=== PATIENT | male | born 1940 | race Caucasian/White ===

== ENCOUNTER → 2018-04-14 | Day surgery (SDC) | payer MEDICARE ==
[2018-04-11 16:19] VITALS: BMI 28.7
[~2018-04-14] MED LIST: LACTATED RINGERS 1,000 ML IV SCH; LIDOCAINE 1% 20 ML VIAL (10MG/ML) FOR IV START INTRADERMA ONE; LIDOCAINE 1% INJ 10MG/ML (20 ML MDV) ONE; PROPOFOL 10 MG/ML 20 ML VIAL IV ONE
[2018-04-14 08:02] VITALS: TEMP 97.3
--- NOTE | 2018-04-14 08:51 | P.GSHP ---
History of Present Illness H&P Date: 04/14/18 Chief Complaint: Screening colonoscopy, hemorrhoids This is a 70-year-old male referred from Dr. navarro. Patient presents today for screening colonoscopy. He has a history of hemorrhoids. Past Medical History Past Medical History: Coronary Artery Disease (CAD), Cancer, Hyperlipidemia, Hypertension, Osteoarthritis (OA), Prostate Disorder Additional Past Medical History / Comment(s): Hemmorroids. History of Any Multi-Drug Resistant Organisms: MRSA Date of last positivie culture/infection: 2007 MDRO Source:: R groin Past Surgical History: Appendectomy, Coronary Bypass/CABG, Prostate Surgery, Tonsillectomy Additional Past Surgical History / Comment(s): Fem Pop bypass R groin. L shoulder surgery. Past Anesthesia/Blood Transfusion Reactions: No Reported Reaction Smoking Status: Former smoker - Past Family History Mother Family Medical History: Cancer Additional Family Medical History / Comment(s): Liver Medications and Allergies Home Medications Medication Instructions Recorded Confirmed Type Atenolol [Tenormin] 50 mg PO DAILY 04/11/18 04/14/18 History Cholecalciferol [Vitamin D3] 400 unit PO DAILY@1200 04/11/18 04/14/18 History Folic Acid 1 mg PO DAILY 04/11/18 04/14/18 History Isosorbide Mononitrate ER [Imdur] 30 mg PO DAILY 04/11/18 04/14/18 History Methotrexate [Xatmep Oral Soln] 12.5 mg PO Q7D 04/11/18 04/11/18 History Allergies Allergy/AdvReac Type Severity Reaction Status Date / Time No Known Allergies Allergy Verified 04/11/18 15:58 Surgical - Exam Vital Signs Temp Pulse Resp BP Pulse Ox 97.3 F L 133 H 16 169/76 96 04/14/18 07:55 04/14/18 07:55 04/14/18 07:55 04/14/18 07:55 04/14/18 07:55 - General well developed, no distress - Eyes PERRL - ENT normal pinna - Neck no masses - Respiratory normal expansion - Cardiovascular Rhythm: regular - Abdomen Abdomen: soft, non tender Assessment and Plan Assessment: We'll perform screening colonoscopy.
[2018-04-14 09:10] VITALS: RESP 18
--- NOTE | 2018-04-14 09:10 | P.OP ---
Date of Procedure: 04/14/18 Preoperative Diagnosis: Screening colonoscopy Postoperative Diagnosis: Diverticulosis Procedure(s) Performed: Colonoscopy Anesthesia: MAC Surgeon: John Tomas Pathology: none sent Condition: stable Disposition: PACU Description of Procedure: PROCEDURE: The patient was placed on the endoscopy table in the lateral position. Digital rectal examination was performed which revealed no abnormalities. The prostate was symmetrical without nodules. Flexible colonoscope was then placed in the patient's anus and passed throughout the entire colon. The ileocecal valve was visualized. The cecum, ascending, transverse, descending colon was normal. In the sigmoid colon there was evidence of diverticulitis. The scope was then brought back the rectum and this appeared normal. Scope was withdrawn for patient.
[2018-04-14 09:35] VITALS: PULSE 58
[2018-04-14 09:53] VITALS: BP 142/65
--- NOTE | 2018-04-18 05:16 | CDI ---
Date: 04/18/2018 CDS/Tutor Coordinator Name: Parker Lopez Phone: If any questions, call Mary Gamez College Administrator at [phone] Patient Name: Kailash Cee Admit Date: 04/14/2018 Discharge Date: ATTENTION: The [facility] Coding Staff appreciate your assistance in clarifying documentation. Please respond to the clarification below the line at the bottom and electronically sign. The [facility] Coding staff will review the response and follow-up if needed. Please note: Queries are made part of the Legal Health Record. If you have any questions, please contact the College Administrator. Dear Dr. Genoveva Lopez, Colonoscopy OP report procedure description states "There was evidence of diverticulitis", but no documentation of diverticulitis in post operative diagnosis, documented only diverticulosis. Please clarify whether the patient is having diverticulitis or diverticulosis. The patient had evidence of sigmoid diverticulosis MTDD
== END | disposition home or self-care (01) ==
LOC: ORWHC2ENDO 07:31
PROVIDERS: ATTEND Surgery
DX: Z12.11 Encounter for screening for malignant neoplasm of colon (principal); K57.30 Diverticulosis of large intestine without perforation or abscess without bleeding; I25.10 Atherosclerotic heart disease of native coronary artery without angina pectoris; E78.5 Hyperlipidemia, unspecified; I10 Essential (primary) hypertension; M06.9 Rheumatoid arthritis, unspecified; Z79.899 Other long term (current) drug therapy; Z87.19 Personal history of other diseases of the digestive system; Z86.14 Personal history of Methicillin resistant Staphylococcus aureus infection; Z85.9 Personal history of malignant neoplasm, unspecified; Z87.891 Personal history of nicotine dependence; Z95.1 Presence of aortocoronary bypass graft; Z90.49 Acquired absence of other specified parts of digestive tract; Z80.0 Family history of malignant neoplasm of digestive organs
CPT/HCPCS: J2001; J2704; G0121

== ENCOUNTER → 2018-06-01 | Outpatient (CLI) | payer MEDICARE ==
[2018-06-01 13:35] LABS: Basophils % (A) 0 %; Eosinophils # (A) 0.3 k/uL (0-0.7); Eosinophils % (A) 4 %; HCT 40.9 % (39.0-53.0); HGB 13.6 gm/dL (13.0-17.5); Lymphocytes # (A) 1.5 k/uL (1.0-4.8); Lymphocytes % (A) 24 %; MCH 32.3 pg (25.0-35.0); MCHC 33.3 g/dL (31.0-37.0); MCV 96.9 fL (80.0-100.0); Mean Platelet Volume 7.5; Monocytes # (A) 0.3 k/uL (0-1.0); Monocytes % (A) 4 %; Neutrophils # (A) 4.1 k/uL (1.3-7.7); Neutrophils % (A) 65 %; Platelet Count 151 k/uL (150-450); RBC 4.22 m/uL (4.30-5.90); RDW 15.5 % (11.5-15.5); WBC 6.3 k/uL (3.8-10.6)
[2018-06-01 13:52] LABS: Calcium 9.1 mg/dL (8.4-10.2); Potassium 4.8 mmol/L (3.5-5.1)
== END | disposition home or self-care (01) ==
LOC: LABPAT 13:12
PROVIDERS: ATTEND Urology
DX: Z01.812 Encounter for preprocedural laboratory examination (principal); A63.0 Anogenital (venereal) warts; Z79.899 Other long term (current) drug therapy
CPT/HCPCS: 36415; 80048; 85025

== ENCOUNTER 2018-06-08 05:48 | Day surgery (SDC) | payer MEDICARE ==
[2018-06-01 10:41] VITALS: BMI 29.4
--- NOTE | 2018-06-05 21:46 | P.GSHP ---
History of Present Illness H&P Date: 06/05/18 Chief Complaint: Left groin condyloma The patient is a 78-year-old male who underwent a radical prostatectomy in the for prostate cancer. 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 He now presents with an 8 cm area of apparent condyloma on the left groin/inner thigh and perianal regions. He comes for CO2 laser ablation. - Constitutional Constitutional: Denies chills, Denies fever - Cardiovascular Cardiovascular: Reports edema - Gastrointestinal Gastrointestinal: Reports abdominal pain, Reports nausea, Reports vomiting Past Medical History Past Medical History: Coronary Artery Disease (CAD), Cancer, Hyperlipidemia, Hypertension, Osteoarthritis (OA), Prostate Disorder Additional Past Medical History / Comment(s): Hemmorroids,prostate CA-radiation seeds implant History of Any Multi-Drug Resistant Organisms: MRSA Date of last positivie culture/infection: 2007 MDRO Source:: R groin surgical site-had wound vac Past Surgical History: Appendectomy, Coronary Bypass/CABG, Prostate Surgery, Tonsillectomy Additional Past Surgical History / Comment(s): Fem Pop bypass R groin. L shoulder surgery,prostatectomy,CABG x2-triple bypass each time-last CABG 2009 Past Anesthesia/Blood Transfusion Reactions: No Reported Reaction Additional Past Anesthesia/Blood Transfusion Reaction / Comment(s): no hx problems with prior blood transfusion Smoking Status: Former smoker - Past Family History Mother Family Medical History: Cancer Additional Family Medical History / Comment(s): Liver Medications and Allergies Home Medications Medication Instructions Recorded Confirmed Type Atenolol [Tenormin] 50 mg PO QAM 04/11/18 06/01/18 History Cholecalciferol [Vitamin D3] 400 unit PO DAILY@1200 04/11/18 06/01/18 History Folic Acid 1 mg PO DAILY 04/11/18 06/01/18 History Isosorbide Mononitrate ER [Imdur] 30 mg PO QAM 04/11/18 06/01/18 History Methotrexate [Xatmep Oral Soln] 12.5 mg PO MO 04/11/18 06/01/18 History Allergies Allergy/AdvReac Type Severity Reaction Status Date / Time No Known Allergies Allergy Verified 06/01/18 10:31 Surgical - Exam - General well developed, well nourished, no distress - Respiratory normal respiratory effort - Genitourinary other (An 8 cm area of apparent condyloma is noted in the left groin and inner thigh, extending to the perianal region.) - Psychiatric oriented to time, oriented to person, oriented to place, speech is normal, memory intact Assessment and Plan (1) 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 The procedure was reviewed in detail with the patient. He understands risks to include anesthesia, bleeding, infection, postoperative pain, and recurrent condyloma.
[~2018-06-08 05:48] MED LIST changes: +HYDROmorphone 1 MG/ML 1 ML SYRINGE IVP PRN; -LIDOCAINE 1% 20 ML VIAL (10MG/ML) FOR IV START INTRADERMA ONE; -LIDOCAINE 1% INJ 10MG/ML (20 ML MDV) ONE; +ONDANSETRON 4 MG/2 ML VIAL IVP ONE; -PROPOFOL 10 MG/ML 20 ML VIAL IV ONE; +Pre Op ABX Message 1 EACH MISC MISCELLANE ONE
[2018-06-08] MEDS ORDERED: LIDOCAINE 1% 20 ML VIAL (10MG/ML) FOR IV START INTRADERMA ONE (06:48)
[2018-06-08] MEDS ORDERED: LIDOCAINE 1% INJ 10MG/ML (20 ML MDV) SQ ONE (07:43)
[2018-06-08] MEDS ORDERED: MIDAZOLAM 2 MG/2 ML VIAL ONE (07:43)
[2018-06-08] MEDS ORDERED: ePHEDrine SULFATE/0.9% NACL/PF 50 MG/5 ML SYRINGE IV ONE (07:43)
[2018-06-08] MEDS ORDERED: SILVER sulfADIAZINE Cream 400 GM 1 APPLIC APPLIC TOPICAL ONE (07:43)
[2018-06-08] MEDS ORDERED: fentaNYL (PF) 50 MCG/ML 2 ML AMP ONE (07:43)
[2018-06-08] MEDS ORDERED: ceFAZolin 1,000 MG/50 ML BAG (PMX) IVPB ONE (07:43)
[2018-06-08] MEDS ORDERED: SUCCINYLCHOLINE CHLORIDE 100 MG/5 ML SYR IV ONE (07:43)
[2018-06-08] MEDS ORDERED: LIDOCAINE 1% INJ 10MG/ML (20 ML MDV) ONE (07:43)
[2018-06-08] MEDS ORDERED: ROPIVACAINE 5 MG/ML 30 ML VIAL MISCELLANE ONE (07:43)
[2018-06-08] MEDS ORDERED: PROPOFOL 10 MG/ML 20 ML VIAL IV ONE (07:43)
--- NOTE | 2018-06-08 08:33 | P.OP ---
Date of Procedure: 06/08/18 Preoperative Diagnosis: Perianal condyloma Postoperative Diagnosis: same Procedure(s) Performed: Excision and fulguration of perianal condyloma Anesthesia: VI Surgeon: Jose F Gomez Estimated Blood Loss (ml): 1 Pathology: other (Condyloma) Condition: stable Disposition: same day Indications for Procedure: Patient presented to my office with perianal condyloma and a large amount of condyloma on left perineum and groin. Discussion was had with patient about excision and fulguration of perianal condyloma and Dr. Chicas (Urology) would be performing the perineum and groin portion of the procedure. Risks benefits and alternatives were discussed. Patient stated he understood and agreed. Operative Findings: Perianal condyloma Description of Procedure: Patient was brought to OR. Placed in lithotomy. Timeout preformed correct patient procedure and site noted. Prepped and drapped in usual sterile fashion. Rectal exam preformed no internal lesions noted. Several small condylomas were excised and fulgurated with bovie electrocautery. These were sent to pathology. Hemostasis was noted. Inspection did not show any more perianal lesions. Please see Dr. Chicas' dictation regarding the urologic portion of the procedure.
[2018-06-08] MEDS ORDERED: LACTATED RINGERS 1,000 ML IV ONE (08:40)
[2018-06-08 08:57] VITALS: TEMP 96.8
[2018-06-08 09:41] VITALS: RESP 18
[2018-06-08] MEDS ORDERED: HYDROcodone/APAP 5-325MG 1 EACH TAB PO ONE (09:54)
[2018-06-08 10:19] VITALS: BP 177/76; PULSE 66
--- NOTE | 2018-06-08 18:09 | P.OP ---
Date of Procedure: 06/08/18 Preoperative Diagnosis: Anogenital Condyloma Postoperative Diagnosis: Same Procedure(s) Performed: Excision of scrotal condyloma, CO2 laser ablation of penoscrotal and groin condyloma Anesthesia: VI Surgeon: Dallas Chicas Estimated Blood Loss (ml): 5 IV fluids (ml): 700 Pathology: other (Left scrotal condyloma) Condition: stable Disposition: PACU Indications for Procedure: The patient is a 78-year-old male who underwent a radical prostatectomy in the for prostate cancer. 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 He now presents with an 8 cm area of apparent condyloma on the left groin/inner thigh and perianal regions. He comes for CO2 laser ablation. Operative Findings: Multiple penoscrotal and groin condyloma, most prominent within the left groin crease. Description of Procedure: The patient was taken to the operating room and placed in the dorsolithotomy position, with his legs supported in Rivera stirrups. The external genitalia was prepped and draped sterilely. Dr. Gomez treated the perianal lesions. I then entered the operating room. Several condyloma were noted on the penis and scrotum. One of the scrotal condyloma was excised with Metzenbaum scissors and sent to pathology. Multiple flat condyloma were present in the left groin crease, the largest measuring approximately 2 cm in diameter. An additional 1- 2 condyloma were noted within the right groin crease. All visible condyloma were treated using CO2 laser ablation. Some of the left groin condyloma were confluent with one another. Hemostasis was excellent. Upon completion of the procedure, Silvadene cream was applied to the lesions and was taken to the recovery room in stable condition.
== END 2018-06-08 10:42 | disposition home or self-care (01) ==
LOC: OR 05:48
PROVIDERS: ATTEND Student in an Organized Health Care Education/Training Program
DX: A63.0 Anogenital (venereal) warts (principal); I10 Essential (primary) hypertension; E78.00 Pure hypercholesterolemia, unspecified; E78.5 Hyperlipidemia, unspecified; I25.10 Atherosclerotic heart disease of native coronary artery without angina pectoris; M19.90 Unspecified osteoarthritis, unspecified site; I25.2 Old myocardial infarction; Z87.891 Personal history of nicotine dependence; Z95.1 Presence of aortocoronary bypass graft; Z85.46 Personal history of malignant neoplasm of prostate; Z92.3 Personal history of irradiation; Z86.14 Personal history of Methicillin resistant Staphylococcus aureus infection; Z79.899 Other long term (current) drug therapy; L40.9 Psoriasis, unspecified
CPT/HCPCS: 88305; 45171; 11421; J2250; J2405; J2001; J3010; J0690; J2795; J0330; J2704

== ENCOUNTER → 2018-10-13 | Outpatient (CLI) | payer MEDICARE ==
--- NOTE | 2018-10-13 12:04 | XR ---
EXAMINATION TYPE: XR chest 2V DATE OF EXAM: 10/13/2018 COMPARISON: 09/18/2010 TECHNIQUE: PA and lateral views submitted. HISTORY: MRI clearance FINDINGS: There is a mass measuring 2 cm in the left upper lobe suspicious for malignancy. CT chest recommended . Postsurgical changes. Subsegmental changes left lung base. Hypertrophic and degenerative change of the spine. Biapical pleural thickening. Underlying interstitial lung disease suspected. Identified hy pertrophic and degenerative change of the spine. IMPRESSION: 1. There is a mass within the left upper lobe measuring 2 cm suggestive of malignancy. CT scan chest recommended. Report called to the referring physician. 2. There is no definite epicardial lead visualized. 3. Left lower lobe infiltrate and findings suggestive of chronic interstitial lung disease.. A Yellow level critical message alert has been initiated for Sariah Carter DO via the [employer] Critical Results System on 10/13/2018 11:55 AM. This message alert has been sent to Sariah Carter DO vi a the preferences provided by the clinician for the receipt of Radiology Critical Findings. Message I [id number].
== END ==
LOC: RADXRMAIN 11:31
PROVIDERS: ATTEND Orthopaedic Surgery Orthopaedic Surgery of the Spine
DX: Z01.818 Encounter for other preprocedural examination (principal); R91.8 Other nonspecific abnormal finding of lung field
CPT/HCPCS: 71046

== ENCOUNTER → 2018-11-10 | Outpatient (CLI) | payer MEDICARE ==
--- NOTE | 2018-11-11 14:14 | CT ---
CT CHEST FOR PULMONARY EMBOLISM. EXAMINATION TYPE: CT angio chest DATE OF EXAM: 11/10/2018 INDICATION: R/O PE CT DLP: 856.1 mGycm, Automated exposure control for dose reduction was used. CONTRAST: Patient injected with 60 mL of Isovue 370. COMPARISON: Chest x-ray 10/13/2018. TECHNIQUE: CT of the chest is performed on a spiral scan at 2 mm thick sections. Study is performed with intravenous contrast timed for evaluation for pulmonary embolism. This will limit additional po rtions of the evaluation. 3-D MIP images reconstructed by the technologist are reviewed on the compu ter in the coronal and sagittal planes. FINDINGS: No persistent filling defects are evident to suggest an acute pulmonary embolism. No mediastinal or hilar adenopathy enlarged by CT criteria is evident. There are scattered small lee tty lymph nodes present. The ascending aorta diameter at the level of the main pulmonary artery is 3. 4 cm. The main pulmonary artery diameter at the bifurcation is 2.2 cm. Mild coronary artery calcific ation is present. There is mild increased lung markings in the periphery of the right upper lobe. More diffuse and grea ter increased lung markings at the lung bases. Borderline bronchiectasis may be present. Some early p ulmonary fibrosis is suspected. There is a 2.2 cm mass within the mid left lung. This was present on the chest x-ray of 10/13/2018. Limited CT section through the upper abdomen are unremarkable. IMPRESSIONS: 1. Left midlung mass present previously. Neoplasm is not excluded. 2. No acute pulmonary embolism. 3. Changes suggestive for early pulmonary fibrosis.
== END | disposition home or self-care (01) ==
LOC: RADCTMAIN 15:51
PROVIDERS: ATTEND Orthopaedic Surgery Orthopaedic Surgery of the Spine
DX: R91.8 Other nonspecific abnormal finding of lung field (principal); I26.99 Other pulmonary embolism without acute cor pulmonale; I11.9 Hypertensive heart disease without heart failure; E78.5 Hyperlipidemia, unspecified; M51.17 Intervertebral disc disorders with radiculopathy, lumbosacral region; M47.26 Other spondylosis with radiculopathy, lumbar region; M48.062 Spinal stenosis, lumbar region with neurogenic claudication; M43.16 Spondylolisthesis, lumbar region; M25.552 Pain in left hip; E66.3 Overweight; Z68.30 Body mass index [BMI] 30.0-30.9, adult; Z85.51 Personal history of malignant neoplasm of bladder; Z85.46 Personal history of malignant neoplasm of prostate; Z90.79 Acquired absence of other genital organ(s); Z98.890 Other specified postprocedural states
CPT/HCPCS: 82565; 84520; 71275; 36415; Q9967

== ENCOUNTER 2018-11-17 07:36 | Day surgery (SDC) | payer MEDICARE ==
[2018-11-16 11:30] VITALS: BMI 29.7
[~2018-11-17 07:36] MED LIST changes: +DEXAMETHASONE SOD PHOSPHATE 10 MG/ML 1 ML VIAL IV ONE; +HEPARIN SODIUM,PORCINE 5,000 UNIT/ML 1 ML VIAL SQ ONE; -HYDROmorphone 1 MG/ML 1 ML SYRINGE IVP PRN; +LIDOCAINE 1% 20 ML VIAL (10MG/ML) FOR IV START INTRADERMA PRN; +MIDAZOLAM 2 MG/2 ML VIAL IV PRN; -ONDANSETRON 4 MG/2 ML VIAL IVP ONE; +fentaNYL (PF) 50 MCG/ML 2 ML AMP IV PRN
--- NOTE | 2018-11-17 08:59 | P.GSHP ---
History of Present Illness H&P Date: 11/17/18 Chief Complaint: Right hand keratosis, right shoulder melanoma This a 78-year-old male who is referred from Dr. Cornell. Patient presents today for excision of right hand keratosis and wide local excision of a right shoulder melanoma. Patient had a punch biopsy performed of the melanoma. The biopsy showed a level IV melanoma. The patient was counseled on possible sentinel node biopsy. Patient does not wish undergo sentinel biopsy at this time. Past Medical History Past Medical History: Coronary Artery Disease (CAD), Cancer, Hyperlipidemia, Hypertension, Myocardial Infarction (MS), Osteoarthritis (OA), Prostate Disorder , Skin Disorder Additional Past Medical History / Comment(s): Hemorrhoids,prostate CA-radiation seeds implant , varicose veins, psoriasis, bladder cancer, melanoma, slipped disks, Last Myocardial Infarction Date:: 1991 History of Any Multi-Drug Resistant Organisms: MRSA Date of last positivie culture/infection: 2007 MDRO Source:: R groin surgical site-had wound vac Past Surgical History: Appendectomy, Coronary Bypass/CABG, Heart Catheterization , Hernia Repair, Orthopedic Surgery, Prostate Surgery, Tonsillectomy Additional Past Surgical History / Comment(s): Fem Pop bypass Rt groin. L shoulder surgery,prostatectomy,CABG x2-triple bypass each time-last CABG 2009, sneha cataracts, laser eye surgery Past Anesthesia/Blood Transfusion Reactions: No Reported Reaction Additional Past Anesthesia/Blood Transfusion Reaction / Comment(s): no hx problems with prior blood transfusion Smoking Status: Former smoker - Past Family History Mother Family Medical History: Cancer Additional Family Medical History / Comment(s): Liver Sister(s) Family Medical History: Cancer Additional Family Medical History / Comment(s): brain Medications and Allergies Home Medications Medication Instructions Recorded Confirmed Type Atenolol [Tenormin] 50 mg PO DAILY 04/11/18 11/16/18 History Cholecalciferol [Vitamin D3] 400 unit PO DIRECTED 04/11/18 11/16/18 History Folic Acid 1 mg PO DAILY 04/11/18 11/16/18 History Isosorbide Mononitrate ER [Imdur] 30 mg PO 1200 04/11/18 11/16/18 History Ibuprofen [Motrin Ib] 200 mg PO DIRECTED PRN 11/16/18 11/16/18 History Methotrexate Sodium [Methotrexate] 12.5 mg PO MO 11/16/18 11/16/18 History Nitroglycerin Sl Tabs [Nitrostat] 0.4 mg SUBLINGUAL Q5M PRN 11/16/18 11/16/18 History Simvastatin [Zocor] 40 mg PO HS 11/16/18 11/16/18 History hydrOXYzine HCL [Atarax] 25 mg PO DIRECTED PRN 11/16/18 11/16/18 History Allergies Allergy/AdvReac Type Severity Reaction Status Date / Time No Known Allergies Allergy Verified 11/17/18 07:49 Surgical - Exam Vital Signs Temp Pulse Resp BP Pulse Ox 96.9 F L 62 16 179/77 98 11/17/18 07:54 11/17/18 07:54 11/17/18 07:54 11/17/18 07:54 11/17/18 07:54 - General well developed, no distress - Eyes PERRL - ENT normal pinna - Neck no masses, no lymphadectomy - Respiratory normal expansion - Cardiovascular Rhythm: regular - Abdomen Abdomen: soft, non tender - Integumentary Patient has a healing right hand keratosis located in the lateral aspect of his hand. It measures approximately 2 cm diameter. Patient has a 1.5 cm melanoma located on the anterior shoulder. There is a recent biopsy scar. There is no cervical or axillary lymphadenopathy. Assessment and Plan Assessment: Right shoulder melanoma. Patient will undergo wide local excision today. Right hand keratosis. Patient will undergo excision today.
[2018-11-17] MEDS ORDERED: fentaNYL (PF) 50 MCG/ML 2 ML AMP ONE (09:06)
[2018-11-17] MEDS ORDERED: MIDAZOLAM 2 MG/2 ML VIAL ONE (09:06)
[2018-11-17] MEDS ORDERED: KETAMINE 10 MG/ML 20 ML VIAL ONE (09:06)
[2018-11-17] MEDS ORDERED: PROPOFOL 10 MG/ML 20 ML VIAL IV ONE (09:06)
[2018-11-17] MEDS ORDERED: BUPIVACAIN-EPI 0.25%-1:200,000 30 ML VIAL SQ ONE ×2 (09:30)
[2018-11-17] MEDS ORDERED: BUPIVACAINE (PF) 0.25% 30 ML VIAL SQ ONE ×2 (09:30)
[2018-11-17] MEDS ORDERED: SODIUM CHLORIDE 0.9% 50 ML with ceFAZolin 2,000 MG IV ONE ×2 (09:50)
[2018-11-17 10:16] VITALS: TEMP 97.2
[2018-11-17 10:29] VITALS: RESP 16
[2018-11-17] MEDS ORDERED: LACTATED RINGERS 1,000 ML IV ONE (10:49)
[2018-11-17 10:58] VITALS: PULSE 60
[2018-11-17 11:34] VITALS: BP 156/80
--- NOTE | 2018-11-24 15:43 | P.OP ---
Date of Procedure: 11/24/18 Preoperative Diagnosis: Right shoulder melanoma Right hand keratosis Postoperative Diagnosis: Right shoulder melanoma Right hand keratosis Procedure(s) Performed: Wide local excision of right shoulder melanoma Excision of right hand keratosis Anesthesia: MAC Surgeon: John Tomas Estimated Blood Loss (ml): 10 Pathology: other (Right shoulder melanoma, right hand keratosis) Condition: stable Disposition: PACU Description of Procedure: Patient's placed on the operative table in the supine position. He received IV sedation. His right hand and right shoulder prepped and draped usual fashion. Patient had a melanoma which was previously biopsied. The patient had a wide local excision for melanoma. An elliptical skin incision was made around the melanoma. Approximate 2.5 cm margin was achieved in all directions. The skin was incised with 15 blade and then using cautery the subcutaneous tissues were divided. The specimen was sent to pathology. The lesion had been oriented for the pathologist. The skin was closed interrupted 3-0 Monocryl suture. Next the right hand keratosis was excised. Elliptical skin incision was made over the keratosis. The keratosis located on the lateral the hand. Using 15 blade skin was incised with cautery was performed to divide subcutaneous tissue. The skin was closed with 3-0 nylon. Patient had cervical spine. He thought procedure well and sent to recovery in stable condition.
== END 2018-11-17 12:30 | disposition home or self-care (01) ==
LOC: OR 07:36
PROVIDERS: ATTEND Surgery
DX: C43.61 Malignant melanoma of right upper limb, including shoulder (principal); D04.61 Carcinoma in situ of skin of right upper limb, including shoulder; E78.5 Hyperlipidemia, unspecified; I10 Essential (primary) hypertension; I25.10 Atherosclerotic heart disease of native coronary artery without angina pectoris; I25.2 Old myocardial infarction; L40.9 Psoriasis, unspecified; L57.0 Actinic keratosis; M19.90 Unspecified osteoarthritis, unspecified site; Z85.46 Personal history of malignant neoplasm of prostate; Z85.51 Personal history of malignant neoplasm of bladder; Z87.891 Personal history of nicotine dependence; Z95.1 Presence of aortocoronary bypass graft
CPT/HCPCS: 88305; 11423; 11606; J2250; J1644; J1100; J3010; J0690; J2704

== ENCOUNTER → 2019-01-19 | Outpatient (CLI) | payer MEDICARE ==
[2019-01-19 07:37] LABS: Basophils % (A) 0 %; Eosinophils # (A) 0.4 k/uL (0-0.7); Eosinophils % (A) 5 %; HCT 43.1 % (39.0-53.0); HGB 13.8 gm/dL (13.0-17.5); Lymphocytes # (A) 1.1 k/uL (1.0-4.8); Lymphocytes % (A) 15 %; MCH 31.7 pg (25.0-35.0); MCHC 31.9 g/dL (31.0-37.0); MCV 99.3 fL (80.0-100.0); Macrocytosis Slight; Mean Platelet Volume 7.5; Monocytes # (A) 0.4 k/uL (0-1.0); Monocytes % (A) 6 %; Neutrophils # (A) 5.4 k/uL (1.3-7.7); Neutrophils % (A) 73 %; Partial Thromboplastin Time 25.4 sec (22.0-30.0); Platelet Count 154 k/uL (150-450); Prothrombin Time 10.8 sec (9.0-12.0); RBC 4.34 m/uL (4.30-5.90); RDW 14.4 % (11.5-15.5); WBC 7.4 k/uL (3.8-10.6)
[2019-01-19 07:44] LABS: Magnesium 2.2 mg/dL (1.6-2.3); Potassium 4.3 mmol/L (3.5-5.1)
== END | disposition home or self-care (01) ==
LOC: LABPAT 06:53
PROVIDERS: ATTEND Thoracic Surgery (Cardiothoracic Vascular Surgery)
DX: Z01.812 Encounter for preprocedural laboratory examination (principal)
CPT/HCPCS: 80051; 82565; 82947; 83735; 84520; 85025; 85610; 85730

== ENCOUNTER → 2019-01-31 | Day surgery (SDC) | payer MEDICARE ==
[2019-01-25 15:31] VITALS: BMI 30.2
[~2019-01-31] MED LIST changes: +ALPRAZolam 0.25 MG TAB PO PRN; +ALPRAZolam 0.5 MG TAB PO PRN; +ASPIRIN 325 MG TAB PO STA; +ATORVASTATIN 80 MG TAB PO STA; -DEXAMETHASONE SOD PHOSPHATE 10 MG/ML 1 ML VIAL IV ONE; +HEPARIN SODIUM 1,000 UN/ML (10ML VL) IV ONE; +HEPARIN SODIUM 1,000 UN/ML (10ML VL) ONE; -HEPARIN SODIUM,PORCINE 5,000 UNIT/ML 1 ML VIAL SQ ONE; +IOPAMIDOL-370 125ML BTL INJ ONE; +IOPAMIDOL-370 50ML BTL INJ ONE; -LACTATED RINGERS 1,000 ML IV SCH; -LIDOCAINE 1% 20 ML VIAL (10MG/ML) FOR IV START INTRADERMA PRN; +LIDOCAINE 1% INJ 10MG/ML (20 ML MDV) ONE; +LIDOCAINE 1% INJ 10MG/ML (20 ML MDV) SQ ONE; -MIDAZOLAM 2 MG/2 ML VIAL IV PRN; +MIDAZOLAM 2 MG/2 ML VIAL IVP ONE; +NITROGLYCERIN SL TABS 0.4 MG TAB SUBLINGUAL PRN; -Pre Op ABX Message 1 EACH MISC MISCELLANE ONE; +RX INFO: IV CONTRAST WAS GIVEN 1 EACH MISC MISCELLANE PRN; +SODIUM CHLORIDE 0.9% 1,000 ML IV ONE; +SODIUM CHLORIDE 0.9% 1,000 ML IV SCH; +SODIUM CHLORIDE 0.9% 1,000 ML in EMPTY BAG 1 BAG IV ONE; +VERAPAMIL 2.5 MG/ML 2 ML AMP ONE; +VERAPAMIL SYRINGE (5 MG/10 ML) INTRAARTER ONE; +diphenhydrAMINE 50 MG/ML 1 ML VIAL IVP ONE; +diphenhydrAMINE 50 MG/ML 1 ML VIAL ONE; -fentaNYL (PF) 50 MCG/ML 2 ML AMP IV PRN; +fentaNYL (PF) 50 MCG/ML 2 ML AMP IVP ONE; +fentaNYL (PF) 50 MCG/ML 2 ML AMP ONE
[2019-01-31 11:29] VITALS: RESP 16
[2019-01-31 16:33] VITALS: TEMP 98
[2019-01-31 17:33] VITALS: BP 145/68; PULSE 56
--- NOTE | 2019-02-01 18:37 | P.CARDCATH ---
Date of Procedure: 02/01/19 Preoperative Diagnosis: Ischemic heart disease, positive stress test, preop clearance Postoperative Diagnosis: Significant catawba disease, patent graft to the LAD, OM branch and also right coronary artery Description of Procedure: HISTORY: This is a 78-year-old gentleman with history of previous bypass surgery 2 who is waiting to have lobectomy. Patient had a stress test which showed ischemia in the inferolateral wall apical and anterolateral segments. Patient is advised to have a cardiac catheterization for definite diagnosis. Patient and family were explained the risks and benefits of the procedure. CONSENT:I have discussed the risks, benefits and alternative therapies for the above-mentioned procedure and for both sedation/analgesia as well as necessary blood product administration, if indicated, as they pertain to this patient. The patient has indicated understanding and acceptance of the risks and procedures discussed. PROCEDURE: Patient was brought to the lab in a fasting state. Patient was given some IV sedation. The left wrist is infiltrated with lidocaine and left radial artery was entered using Seldinger technique. A 6-Greek catheter was left in place and selective coronary arteriography and selective injection of 4 vein grafts and catawba circulation was performed was performed. Patient tolerated the procedure well. TR band was applied for hemostasis Conscious Sedation: Versed 1mg Fentanyl 50 g Duration 61minutes HEMODYNAMICS: The aortic pressure is about 130/70. Left ventricle end-diastolic pressures of 15-20. There was no gradient across the aortic valve SELECTIVE CORONARY ARTERIOGRAPHY: LEFT MAIN: This is shot with the distal disease with about 60% luminal narrowing. THE LEFT ANTERIOR DESCENDING CORONARY ARTERY: This is diffuse and this is a vessel, Proximally and near total occluded after the origin of the first diagonal branch. There is some competent to flow noted into the distal LAD. The first diagonal branch is small in caliber with a significant disease in the midportion. THE LEFT CIRCUMFLEX AND IS CORONARY ARTERY: This is a small-caliber vessel giving rise to small caliber second OM branch. There is mild disease in the ostium of the second OM branch. There is moderate to severe disease in midportion. The first OM branch is totally occluded THE RIGHT CORONARY ARTERY: This is totally occluded in the proximal to midportion. THE VEIN GRAFT TO THE LAD: This is patent throat its length and also at distal anastomosis. The LAD appears to be small to moderate in size, mild diffuse plaque but without any critical lesions. The vein graft to the OM branch: This is a good size and vessel and patent at the proximal and distal anastomosis. There is a OM branch is small to moderate caliber and free of any significant occlusive disease THE VEIN GRAFT TO THE RIGHT CORONARY ARTERY: This is patent at the proximal and distal anastomosis with some ectatic changes proximally. The PDA and PLV branches, beyond the anastomosis,appeared to be free of occlusive disease. LEFT VENTRICULOGRAPHY: Not performed FINAL IMPRESSION: Patent graft to the LAD, OM branch and right coronary artery. Total occlusion of the vein graft to the PLV branch of the RCA. Diffusedly disease involving the catawba vessels including the diagonal and OM branches and also significant lesion involving the left main. The ischemia documented on the stress test is most probably related to the catawba vessel disease. The catawba vessels appear to be small and probably not suitable for interventions. We'll also get an opinion from works manager. Most probably patient could undergo his surgery with the above average risk PLAN: Continued medical therapy PROGNOSIS: Fair from Cardec standpoint
== END | disposition home or self-care (01) ==
LOC: CATHCVL 10:52
PROVIDERS: ATTEND Internal Medicine Cardiovascular Disease
DX: I25.810 Atherosclerosis of coronary artery bypass graft(s) without angina pectoris (principal); I25.82 Chronic total occlusion of coronary artery; E78.5 Hyperlipidemia, unspecified; I10 Essential (primary) hypertension; I73.9 Peripheral vascular disease, unspecified; Z79.899 Other long term (current) drug therapy; F17.200 Nicotine dependence, unspecified, uncomplicated
CPT/HCPCS: 99152; 99153 ×2; 93459; J2250; J1200; J2001; J3010; J1644; Q9967 ×2

== ENCOUNTER → 2019-02-24 | Outpatient (CLI) | payer MEDICARE ==
[2019-02-24 09:24] LABS: Basophils % (A) 1 %; Eosinophils # (A) 0.3 k/uL (0-0.7); Eosinophils % (A) 4 %; HGB 13.9 gm/dL (13.0-17.5); Lymphocytes # (A) 0.9 k/uL (1.0-4.8); Lymphocytes % (A) 11 %; MCH 32.7 pg (25.0-35.0); MCHC 33.1 g/dL (31.0-37.0); MCV 99.1 fL (80.0-100.0); Macrocytosis Slight; Mean Platelet Volume 7.9; Monocytes # (A) 0.4 k/uL (0-1.0); Monocytes % (A) 6 %; Neutrophils % (A) 78 %; Platelet Count 149 k/uL (150-450); RBC 4.24 m/uL (4.30-5.90); RDW 15.8 % (11.5-15.5); WBC 7.8 k/uL (3.8-10.6)
[2019-02-24 09:44] LABS: Magnesium 2.2 mg/dL (1.6-2.3); Potassium 4.3 mmol/L (3.5-5.1)
[2019-02-24 10:02] LABS: Partial Thromboplastin Time 24.5 sec (22.0-30.0); Prothrombin Time 10.6 sec (9.0-12.0)
== END | disposition home or self-care (01) ==
LOC: LABPAT 08:20
PROVIDERS: ATTEND Thoracic Surgery (Cardiothoracic Vascular Surgery)
DX: Z01.812 Encounter for preprocedural laboratory examination (principal)
CPT/HCPCS: 36415; 80051; 82565; 82947; 83735; 84520; 85025; 85610; 85730

== ENCOUNTER 2019-02-27 12:23 | Inpatient (IN) | payer MEDICARE ==
[2019-02-20 14:59] VITALS: BMI 31.1
[2019-03-02] MEDS ORDERED: ceFAZolin IN SWFI 2 GM/20 ML SYRINGE IVP ONE (05:00)
[2019-03-02] MEDS ORDERED: HYDROmorphone 0.5 MG/0.5 ML SYRINGE IVP PRN (05:12)
[2019-03-02] MEDS ORDERED: ONDANSETRON 4 MG/2 ML VIAL IVP ONE (05:12)
[2019-03-02] MEDS ORDERED: MIDAZOLAM (PF) 2 MG/2 ML VIAL IV PRN (05:12)
[2019-03-02] MEDS ORDERED: DEXAMETHASONE SOD PHOSPHATE 10 MG/ML 1 ML VIAL IV ONE (05:12)
[2019-03-02] MEDS: LACTATED RINGERS 1,000 ML IV SCH ×2 (10:31→10:32)
[2019-03-02] MEDS: LIDOCAINE 1% 20 ML VIAL (10MG/ML) FOR IV START INTRADERMA ONE ×2 (10:32→10:33)
[2019-03-02] MEDS ORDERED: fentaNYL (PF) 50 MCG/ML 2 ML AMP IV ONE (11:30)
[2019-03-02] MEDS ORDERED: GLYCOPYRROLATE 0.2 MG/ML 2 ML VIAL ONE (13:08)
[2019-03-02] MEDS ORDERED: LIDOCAINE 1% INJ 10MG/ML (20 ML MDV) ONE (13:08)
[2019-03-02] MEDS ORDERED: ROCURONIUM BROMIDE 10 MG/ML 10 ML VIAL IV ONE (13:08)
[2019-03-02] MEDS ORDERED: HYDROmorphone (PF) 1 MG/ML ONE (13:08)
[2019-03-02] MEDS ORDERED: NEOSTIGMINE 1 MG/ML 10 ML VIAL ONE (13:08)
[2019-03-02] MEDS ORDERED: fentaNYL (PF) 50 MCG/ML 2 ML AMP ONE (13:08)
[2019-03-02] MEDS ORDERED: ePHEDrine SULFATE/0.9% NACL/PF 50 MG/5 ML SYRINGE IV ONE (13:08)
[2019-03-02] MEDS ORDERED: PROPOFOL 10 MG/ML 20 ML VIAL IV ONE (13:08)
[2019-03-02] MEDS ORDERED: SUCCINYLCHOLINE CHLORIDE 100 MG/5 ML SYR IV ONE (13:08)
[2019-03-02] MEDS ORDERED: BUPIVACAINE (PF) 0.5% 30 ML VIAL SQ ONE ×2 (14:19)
[2019-03-02] MEDS ORDERED: LACTATED RINGERS 1,000 ML IV ONE ×3 (14:54→17:09)
--- NOTE | 2019-03-02 17:49 | P.OP ---
Date of Procedure: 03/02/19 Preoperative Diagnosis: Left upper lobe lung mass Postoperative Diagnosis: Same Procedure(s) Performed: Left thoracoscopy, robotic-assisted left upper lobectomy with mediastinal lymph node dissection Anesthesia: VI Surgeon: Andrea Mejia [employer] Laborer #1: aZc Newman Estimated Blood Loss (ml): 500 IV fluids (ml): 1,800 Urine output (ml): 450 Pathology: other (Left upper lobectomy with frozen section of bronchial margin negative for carcinoma, lymph nodes stations L5, L 11, level VII) Condition: stable Disposition: PACU Indications for Procedure: 79-year-old male with previous CABG 2 presents for elective left upper lobectomy for lung mass consistent with carcinoma Operative Findings: Majority of the pleural space was free, the apex and anterior and mediastinal surfaces were adherent. The adhesions were particularly dense in the patient left internal mammary artery to the LAD. Was a large mass in the left upper lobe adjacent to the fissure. Minimal adenopathy was present. Description of Procedure: The patient was brought to the operating room, placed supine on the operating table, anesthetized and intubated with a double-lumen endotracheal tube. Tube was positioned with fiberoptic bronchoscopy and secured. Patient was turned in the right lateral decubitus position and appropriately positioned for robotic lobectomy. The left chest was sterilely prepped and draped. Initial incision was made in the eighth interspace in the anterior axillary line and a video thoracoscope was placed into the pleural space. After confirming presence of the pleural space CO2 insufflation was begun. 212 mm ports were placed 10 cm anterior and posterior to this in the same interspace. A second 8 mm port was placed in the fourth interspace posteriorly. And a 15 mm working port was placed between the 2 most anterior portion of the level of the diaphragm. Robot was docked and dissection was begun. Adhesions in the apex were taken down and the anterior adhesions were taken down. Dissection of the mediastinal adhesions was more difficult. Particularly in the area the patent RIVAS to the LAD the adhesions were very dense and there was considerable bleeding in trying to take these down. Eventually we opted to go to the hilum and began dissection in the hilum. The superior pulmonary vein was encircled and ligated and divided with a robotic stapler. Dissection was carried onto the pulmonary artery and the lingular branch was ligated and divided with a robotic stapler. There was one further branch more proximally in the fissure leading to the posterior segment of the left upper lobe which was ligated and divided with a robotic stapler. We now able to encircle the left upper lobe bronchus, resecting the lymph nodes en bloc with the specimen. The bronchus was ligated and divided with a single firing of of thick robotic stapler. Some lymph nodes were present in the fissure and worse resected and sent as L 11 lymph nodes. Dissection was carried up onto the proximal portion of the pulmonary vein pulmonary artery and the remaining 2 branches of the pulmonary artery leading to the left upper lobe were ligated and divided with a single firing of a robotic vascular stapler. The inferior pulmonary ligament was mobilized and the level VII lymph nodes were dissected out and resected and sent for permanent section. The remaining adhesions in the mediastinum adjacent to the patent RIVAS to the LAD were now carefully taken down sparing the patent RIVAS to the LAD. Dissection was carried out proximally in the region of the pulmonary artery of the L5 and L6 lymph nodes were resected and sent as L6 lymph nodes. He was minimal lymphadenopathy present. The lobectomy specimen was now placed in an Endo Catch bag and pulled out of the field. Hilum was examined there was a little bit of bleeding from the base of one of the pulmonary artery branches and this was sutured with a 6-0 Prolene suture. Robot was now undocked and the robotic ports were removed. Scope was left in place. The chest was irrigated and the lung inflated and no air leaks were noted. Some FloSeal was placed on the hilum because of the previous bleeding from the pulmonary artery branches although no brisk bleeding was present at this time. 28-[place]ian chest tube was placed through anterior incision and positioned posterior apically. Good lung expansion was noted and this camera was removed. Were closed with layers of Vicryl suture and skin glue and dry sterile dressings were applied. The patient was turned supine and extubated and Frozen section of the bronchial margin was negative for tumor.
[2019-03-02] MEDS ORDERED: ACETAMINOPHEN IV (For NPO) 1,000 MG/100 ML VIAL IVPB ONE (17:57)
[2019-03-02] MEDS ORDERED: DEXTROSE 5%-0.45% NACL 1,000 ML IV SCH (18:03)
[2019-03-02] MEDS ORDERED: IPRATROPIUM-ALBUTEROL 3 ML NEB IH PRN (18:03)
[2019-03-02] MEDS ORDERED: ONDANSETRON 4 MG/2 ML VIAL IVP PRN (18:03)
--- NOTE | 2019-03-02 18:15 | XR ---
EXAMINATION TYPE: XR chest 1V DATE OF EXAM: 03/02/2019 COMPARISON: 10/13/2018 HISTORY: Postop left upper lobectomy TECHNIQUE: Single frontal view of the chest is obtained. FINDINGS: There is a left chest tube. I see no definite pneumothorax. Heart and mediastinum shifted slightly to the left side. There is soft tissue air on the left lateral chest wall. There is some inf iltrate left lower lobe. Right lung is fairly clear. There is no heart failure. IMPRESSION: Postsurgical changes. Slight volume loss consistent with lobectomy. Mild infiltrate left lower lobe increased compared to preoperative exam.
[2019-03-02] MEDS: IPRATROPIUM-ALBUTEROL 3 ML NEB IH SCH (20:59)
[2019-03-02] MEDS: traMADol 50 MG TAB PO SCH ×2 (21:16→21:18)
[2019-03-02] MEDS: ACETAMINOPHEN IV (For NPO) 1,000 MG in EMPTY BAG 1 BAG IVPB SCH (21:18)
[2019-03-02] MEDS: ATORVASTATIN 20 MG TAB PO SCH (21:19)
[2019-03-03] MEDS: HEPARIN SODIUM,PORCINE 5,000 UNIT/ML 1 ML VIAL SQ SCH ×4 (00:01→22:29)
[2019-03-03] MEDS: ceFAZolin IN SWFI 2 GM/20 ML SYRINGE IVP SCH ×2 (01:58→09:13)
[2019-03-03] MEDS: ACETAMINOPHEN IV (For NPO) 1,000 MG in EMPTY BAG 1 BAG IVPB SCH ×2 (02:05→09:05)
--- NOTE | 2019-03-03 06:35 | XR ---
EXAMINATION TYPE: XR chest 1V DATE OF EXAM: 03/03/2019 HISTORY: Postoperative left upper lobectomy. REFERENCE: Previous study dated 03/02/2019. FINDINGS: There has been a midline sternotomy. A left pleural drain placed. The heart is mildly enlarged. There is left basilar airspace disease. There is a small left effusion. There is some volume loss on the left. There has been no significant interval change in the appearan ce of the lungs. IMPRESSION: CONTINUING POSTOPERATIVE CHANGE.
[2019-03-03 07:03] LABS: Basophils % (A) 0 %; Eosinophils % (A) 0 %; HCT 36.1 % (39.0-53.0); HGB 11.7 gm/dL (13.0-17.5); Lymphocytes # (A) 0.8 k/uL (1.0-4.8); Lymphocytes % (A) 6 %; MCH 32.2 pg (25.0-35.0); MCHC 32.5 g/dL (31.0-37.0); MCV 98.9 fL (80.0-100.0); Macrocytosis Slight; Mean Platelet Volume 7.7; Monocytes # (A) 0.6 k/uL (0-1.0); Monocytes % (A) 5 %; Neutrophils # (A) 11.9 k/uL (1.3-7.7); Neutrophils % (A) 88 %; Platelet Count 164 k/uL (150-450); RBC 3.65 m/uL (4.30-5.90); RDW 15.5 % (11.5-15.5); WBC 13.5 k/uL (3.8-10.6)
[2019-03-03] MEDS: IPRATROPIUM-ALBUTEROL 3 ML NEB IH SCH ×4 (07:06→20:20)
[2019-03-03 07:24] LABS: Calcium 8.3 mg/dL (8.4-10.2); Potassium 4.4 mmol/L (3.5-5.1)
[2019-03-03] MEDS ORDERED: KETOROLAC 30 MG/ML 1 ML VIAL IVP ONE (09:00)
[2019-03-03] MEDS: FOLIC ACID 1 MG TAB PO SCH (09:13)
[2019-03-03] MEDS: traMADol 50 MG TAB PO SCH ×3 (09:13→22:28)
[2019-03-03] MEDS: CHOLECALCIFEROL 400 UNIT TAB PO SCH (09:13)
[2019-03-03] MEDS: ATENOLOL 50 MG TAB PO SCH (09:13)
--- NOTE | 2019-03-03 10:34 | P.PN ---
Subjective Progress Note Date: 03/03/19 Principal diagnosis: Left upper lobe lung mass, history of coronary artery disease with history of previous coronary artery bypass grafting surgery in 1991 and in 2010, hypertension, dyslipidemia, remote history of tobacco dependence in remission, history of bilateral carotid stenosis, and peripheral vascular disease. POD #1 left thoracoscopic robotic-assisted left upper lobectomy with mediastinal lymph node dissection. Patient is currently lying in bed on the 3 S. cardiac stepdown unit. He is complaining of pain to his left shoulder and denies any complaints of shortness of breath at this time. He is hemodynamically stable and remains afebrile. Tolerating his incentive spirometry and achieving 5507-4644 mL. Oxygen saturation are 97% on 3 L nasal cannula. His left pleural chest tube remains in place to low continuous wall suction -20 cm H2O. Intermittent air leak is present. Draining thin serosanguineous drainage with 530 mL output since surgery. Tolerating oral intake. Objective - Vital Signs Vital signs: Vital Signs Temp 98.7 F 03/03/19 05:08 Pulse 84 03/03/19 07:15 Resp 20 03/03/19 05:08 BP 116/55 03/03/19 05:08 Pulse Ox 97 03/03/19 05:08 Intake & Output 03/02/19 03/03/19 03/03/19 18:59 06:59 18:59 Intake Total 2500 240 Output Total 1020 225 Balance 1480 -225 240 Weight 99.5 kg Intake: IV 2500 Oral 240 Output: Urine 420 225 Estimated Blood Loss 600 Other: Voiding Method Indwelling Catheter - Constitutional General appearance: Present: cooperative, no acute distress, obese - Respiratory Details: Lung sounds essentially clear throughout, diminished to his left lower lobe. Respirations are symmetrical and nonlabored. Oxygen saturation are 97% on 3 L nasal cannula. Achieving 3867-7613 mL on his incentive spirometry. Left pleural chest tube remains in place to low continuous wall suction -20 cm H2O. Intermittent air leak is present. Draining thin serosanguineous drainage. 225 mL output in the last 8 hours, 530 mL output since surgery. - Cardiovascular Details: Regular rhythm and rate. S1 and S2 present, negative for S3, gallop or murmur. Remote telemetry showing normal sinus rhythm heart rate 80. No edema present. Knee-high STACEY hose and sequential compression devices in place to his bilateral lower extremities. - Gastrointestinal Gastrointestinal Comment(s): Abdomen is soft, nontender and nondistended. Hypoactive bowel sounds to all 4 abdominal quadrants. No guarding or rigidity. No organomegaly. Tolerating oral intake. - Genitourinary Genitourinary Comment(s): Butler catheter for accurate I&O. Draining clear yellow urine. 225 mL output in the last 8 hours. - Integumentary Integumentary Comment(s): Skin is warm and dry. No clubbing or cyanosis is present. No rash or abnormal pigmentation is present. Left chest thoracoscopic incisions with dressings in place clean and dry. No drainage is present. Left chest tube dressing is clean, dry and intact. - Neurologic Neurologic: Present: CNII-XII intact - Musculoskeletal Musculoskeletal: Present: gait normal, strength equal bilaterally - Psychiatric Psychiatric: Present: A&O x's 3, appropriate affect, intact judgment & insight - Allied health notes Allied health notes reviewed: nursing - Labs CBC & Chem 7: 03/03/19 06:25 03/03/19 06:25 Labs: Abnormal Lab Results - Last 24 Hours (Table) 03/03/19 03/03/19 Range/Units 06:25 06:25 WBC 13.5 H (3.8-10.6) k/uL RBC 3.65 L (4.30-5.90) m/uL Hgb 11.7 L (13.0-17.5) gm/dL Hct 36.1 L (39.0-53.0) % Neutrophils # 11.9 H (1.3-7.7) k/uL Lymphocytes # 0.8 L (1.0-4.8) k/uL BUN 27 H (9-20) mg/dL Glucose 129 H (74-99) mg/dL Calcium 8.3 L (8.4-10.2) mg/dL - Imaging and Cardiology Chest x-ray: report reviewed, image reviewed Assessment and Plan Assessment: 1. Left upper lobe lung mass 2. History of coronary artery disease with history of previous coronary artery bypass grafting surgery in 1991 and in 2009 3. History of hypertension 4. Hyperlipidemia 5. History of bilateral internal carotid artery stenosis 6. History of peripheral vascular disease 7. Remote history of tobacco dependence, in remission Plan: 1. Keep left pleural chest tube in place, we will place his chest tube to waterseal. 2. Monitor daily chest x-rays. 3. Encourage use of his incentive spirometry every hour while awake. 4. Bronchodilator management per pulmonology service. 5. Wean oxygen as tolerated to keep oxygen saturations greater than or equal to 92%. 6. Discussed the importance of continued smoking cessation. 7. DVT and GI prophylaxis. 8. Pathology results pending 9. Pain management per current pain medication regimen. Increase tramadol to 100 mg by mouth 3 times a day and add Toradol 15 mg IVP twice a day. 10. Repeat CBC and BMP in a.m. 11. More recommendations to follow based on patient's clinical course. Time with Patient: Greater than 30
[2019-03-03] MEDS ORDERED: BISACODYL 10 MG SUPP RECTAL STA (11:15)
--- NOTE | 2019-03-03 11:32 | P.CONS ---
History of Present Illness - Reason for Consult Consult date: 03/03/19 Medical management Requesting physician: Ariel Moise - History of Present Illness This is a 79-year-old male patient of Dr. Richards. Patient presented for an elective left lobectomy for lung cancer. Patient was diagnosed in December 2018 with lung CA. patient's past medical history of CAD, hyperlipidemia, hypertension, osteoarthritis, prostate With radiation seeds in 1989, melanoma, coronary artery bypass graft surgery and MRSA in 2007. Patient also had previous positive stress test prior to procedure in which she underwent cardiac catheterization for cardiac clearance. Patient is currently postop day 1. Pulmonary and cardiothoracic services are following. Patient is resting comfortably in bed. Pain meds per cardiothoracic surgery. At this time patient denies chest pain. Patient denies shortness of breath. Patient denies nausea vomiting or diarrhea. Patient denies any urinary burning or frequency. Review of Systems Please refer to HPI otherwise unremarkable Past Medical History Past Medical History: Coronary Artery Disease (CAD), Cancer, Hyperlipidemia, Hypertension, Osteoarthritis (OA), Prostate Disorder Additional Past Medical History / Comment(s): prostate CA-radiation seeds implant , dx- lung mass dec 2018, back pain, hx melanoma History of Any Multi-Drug Resistant Organisms: MRSA Year Discovered:: 2007 MDRO Source:: R groin surgical site-had wound vac Past Surgical History: Appendectomy, Coronary Bypass/CABG, Heart Catheterization, Hernia Repair, Prostate Surgery, Tonsillectomy Additional Past Surgical History / Comment(s): Fem Pop bypass R groin. L shoulder surgery,prostatectomy,CABG x2-triple bypass each time-last CABG 2009, surgery for melanoma x3, recent cardiac cath. Past Anesthesia/Blood Transfusion Reactions: No Reported Reaction Additional Past Anesthesia/Blood Transfusion Reaction / Comm: no hx problems with prior blood transfusion Past Psychological History: No Psychological Hx Reported Smoking Status: Former smoker Past Alcohol Use History: None Reported Additional Past Alcohol Use History / Comment(s): Quit 1987,smoked approx 30yrs, 1ppd Past Drug Use History: None Reported - Past Family History Mother Family Medical History: Cancer Additional Family Medical History / Comment(s): Liver Sister(s) Family Medical History: Cancer Additional Family Medical History / Comment(s): brain Medications and Allergies Home Medications Medication Instructions Recorded Confirmed Type Atenolol [Tenormin] 50 mg PO DAILY 04/11/18 03/02/19 History Cholecalciferol [Vitamin D3] 400 unit PO DAILY 04/11/18 03/02/19 History Folic Acid 1 mg PO DAILY 04/11/18 03/02/19 History Isosorbide Mononitrate ER [Imdur] 30 mg PO DAILY@1200 04/11/18 03/02/19 History Ibuprofen [Motrin Ib] 200 mg PO Q6H PRN 11/16/18 03/02/19 History Methotrexate Sodium [Methotrexate] 12.5 mg PO MO 11/16/18 03/02/19 History Nitroglycerin Sl Tabs [Nitrostat] 0.4 mg SUBLINGUAL Q5M PRN 11/16/18 03/02/19 History Simvastatin [Zocor] 40 mg PO HS 11/16/18 03/02/19 History hydrOXYzine HCL [Atarax] 25 mg PO DAILY PRN 11/16/18 03/02/19 History Allergies Allergy/AdvReac Type Severity Reaction Status Date / Time No Known Allergies Allergy Verified 03/02/19 18:38 Physical Exam Vitals: Vital Signs Temp Pulse Pulse Resp BP Pulse Ox 03/03/19 10:58 80 03/03/19 10:49 76 03/03/19 07:15 84 03/03/19 07:07 80 03/03/19 05:08 98.7 F 79 20 116/55 97 03/03/19 00:05 98.5 F 80 20 129/62 97 03/02/19 21:04 88 03/02/19 20:59 80 03/02/19 20:14 97.7 F 82 18 149/74 92 L 03/02/19 18:15 83 15 142/65 98 03/02/19 18:00 76 14 138/58 98 03/02/19 17:45 90 16 120/55 98 03/02/19 17:36 97.6 F 92 16 143/63 99 Intake and Output 03/02/19 03/03/19 03/03/19 22:59 06:59 14:59 Intake Total 0 240 Output Total 100 225 Balance -100 -225 240 Intake: IV 0 Oral 240 Output: Urine 225 Estimated Blood Loss 100 Other: Voiding Method Indwelling Catheter Weight 99.5 kg Head normocephalic Neck supple Lungs clear to auscultation bilaterally no wheezing or crackles. Chest tube in place Heart regular rate and rhythm S1-S2, no rub or gallop Abdomen is soft nontender nondistended positive bowel sounds no hepatosplenom egaly Extremities no edema Neuro alert and orientated to 3 Results CBC & Chem 7: 03/03/19 06:25 03/03/19 06:25 Labs: Abnormal Lab Results - Last 24 Hours (Table) 03/03/19 03/03/19 Range/Units 06:25 06:25 WBC 13.5 H (3.8-10.6) k/uL RBC 3.65 L (4.30-5.90) m/uL Hgb 11.7 L (13.0-17.5) gm/dL Hct 36.1 L (39.0-53.0) % Neutrophils # 11.9 H (1.3-7.7) k/uL Lymphocytes # 0.8 L (1.0-4.8) k/uL BUN 27 H (9-20) mg/dL Glucose 129 H (74-99) mg/dL Calcium 8.3 L (8.4-10.2) mg/dL Assessment and Plan Assessment: 1. Status post left thorascopic robotic-assisted left upper lobectomy with mediastinal lymph node dissection with Dr. Mejia. Postop day 1. Chest tube in place to low continuous wall suction. Cardiothoracic services following 2. Left upper lobe lung mass 3. History of coronary artery disease with history of previous CABG in 1991 and 2009. Patient did receive cardiac clearance prior to procedure 4. History of hypertension 5. History of hyperlipidemia 6. History of bilateral internal carotid artery stenosis 7. History of peripheral vascular disease 8. Previous history of nicotine dependence 9. History of prostate cancer 1989 10. History of melanoma DVT prophylaxis heparin. GI prophylaxis Protonix Thank you for this consultation we'll continue to follow patient closely throughout stay Time with Patient: Greater than 30 (Greater than 60% of the total time spent in counseling and coordination of care. I performed an examination of the patient and discussed their management with the Nurse Practitioner. I have reviewed the Nurse Practitioner's notes and agree with the documented findings and plan of care)
[2019-03-03] MEDS: PANTOPRAZOLE 40 MG TABLET PO SCH (12:40)
--- NOTE | 2019-03-03 14:37 | CONS ---
CONSULTATION Kailash Cee is a 79-year-old male who presented to [facility] and underwent left upper lobectomy for a left upper lobe mass that was adjacent to the fissure. He is in the postoperative period today. He has pain in his left chest at this time and has a left chest tube in place. He denies any cough, recent fever or chills. PAST MEDICAL HISTORY: Positive for a left lung mass, coronary artery disease, hypertension, status post coronary artery bypass, history of prostate cancer. History of recent melanoma. FAMILY HISTORY: Noncontributory. SOCIAL HISTORY: Patient is a never smoker. He drinks alcohol occasionally. Preoperatively, PFT showed a normal FEV1. MEDICATIONS: Prior to admission were hydroxyzine, Zocor, Nitrostat, methotrexate, Imdur, Motrin, folic acid, cholecalciferol and Atenolol. REVIEW OF SYSTEMS: Noncontributory. PHYSICAL EXAMINATION: He was lying in bed. He was not in respiratory distress. His blood pressure is 116/55, respiratory rate 20, pulse was 79, temperature 98.7 degrees Fahrenheit, O2 saturation on 3 L by nasal cannula is 97%. HEENT reveals pupils equal. CHEST: Reveals decreased breath sounds on the left base with a chest tube in place with air leak. CARDIOVASCULAR SYSTEM is S1, S2. No S3, S4. ABDOMEN is soft. EXTREMITIES: There is no pedal edema. LABORATORY DATA: White count is 13.5, hemoglobin of 11.7, sodium 138, potassium 4.4, chloride 106, bicarb 24, BUN 27, creatinine 1.03. Chest x-ray shows left basilar atelectatic change. IMPRESSION: At this time: 1. Left upper lobe lung cancer is likely status post resection. 2. Hypertension. 3. Coronary artery disease. 4. Doubt significant chronic obstructive pulmonary disease. At this point in time, encourage incentive spirometry. Increase his activity level. Continue chest tube in place per Cardiothoracic surgery. I would like to thank you for allowing us to participate in his care. MMODL / IJN: [id number] /
[2019-03-03] MEDS: ISOSORBIDE MONONITRATE ER 30 MG TAB.ER.24H PO SCH (15:21)
[2019-03-03] MEDS: KETOROLAC 30 MG/ML 1 ML VIAL IVP SCH (20:39)
[2019-03-03] MEDS: ATORVASTATIN 20 MG TAB PO SCH (20:41)
[2019-03-04] MEDS: ACETAMINOPHEN TAB 500 MG TAB PO PRN (03:52)
[2019-03-04] MEDS: PANTOPRAZOLE 40 MG TABLET PO SCH (06:47)
--- NOTE | 2019-03-04 06:53 | XR ---
EXAMINATION TYPE: XR chest 1V DATE OF EXAM: 03/04/2019 HISTORY: Postoperative left upper lobectomy. REFERENCE: Previous study dated 03/03/2019. FINDINGS: There has been a previous midline sternotomy. A left pleural drain is in place. The heart is mildly enlarged. There is vascular congestion and subtle interstitial change. I could no t exclude mild pulmonary edema. I cannot exclude small, bilateral effusions. No definite pneumothorax is seen. IMPRESSION: 1. CONTINUING POSTOPERATIVE CHANGE. 2. DIFFICULT TO EXCLUDE A MILD DEGREE OF PULMONARY EDEMA.
[2019-03-04 07:11] LABS: Albumin 3.3 g/dL (3.5-5.0); Calcium 7.9 mg/dL (8.4-10.2); Total Bilirubin 1.1 mg/dL (0.2-1.3); Total Protein 5.9 g/dL (6.3-8.2)
[2019-03-04] MEDS: IPRATROPIUM-ALBUTEROL 3 ML NEB IH SCH ×4 (07:22→19:49)
[2019-03-04 07:59] LABS: Basophils # (A) 0.1 k/uL (0-0.2); Basophils % (A) 0 %; Eosinophils # (A) 0.4 k/uL (0-0.7); Eosinophils % (A) 4 %; HCT 33.9 % (39.0-53.0); HGB 11.4 gm/dL (13.0-17.5); Lymphocytes # (A) 1.8 k/uL (1.0-4.8); Lymphocytes % (A) 16 %; MCH 33.7 pg (25.0-35.0); MCHC 33.6 g/dL (31.0-37.0); MCV 100.4 fL (80.0-100.0); Macrocytosis Slight; Mean Platelet Volume 7.2; Monocytes # (A) 0.7 k/uL (0-1.0); Monocytes % (A) 6 %; Neutrophils % (A) 72 %; Platelet Count 178 k/uL (150-450); RBC 3.38 m/uL (4.30-5.90); RDW 15.7 % (11.5-15.5); WBC 11.1 k/uL (3.8-10.6)
[2019-03-04] MEDS: CHOLECALCIFEROL 400 UNIT TAB PO SCH (08:03)
[2019-03-04] MEDS: traMADol 50 MG TAB PO SCH ×3 (08:03→23:00)
[2019-03-04] MEDS: FOLIC ACID 1 MG TAB PO SCH (08:03)
[2019-03-04] MEDS: HEPARIN SODIUM,PORCINE 5,000 UNIT/ML 1 ML VIAL SQ SCH ×3 (08:04→22:59)
[2019-03-04] MEDS: ATENOLOL 50 MG TAB PO SCH (08:04)
[2019-03-04] MEDS: KETOROLAC 30 MG/ML 1 ML VIAL IVP SCH ×2 (08:04→20:53)
[2019-03-04] MEDS: BISACODYL 10 MG SUPP RECTAL PRN (09:10)
--- NOTE | 2019-03-04 11:30 | P.PN ---
Subjective Progress Note Date: 03/04/19 Principal diagnosis: Left upper lobe lung mass, history of coronary artery disease with history of previous coronary artery bypass grafting surgery in 1991 and in 2010, hypertension, dyslipidemia, remote history of tobacco dependence in remission, history of bilateral carotid stenosis, and peripheral vascular disease. POD #2 left thoracoscopic robotic-assisted left upper lobectomy with mediastinal lymph node dissection. The patient is currently sitting up to the bedside chair on 3 S. cardiac stepdown unit. He is in no acute distress. He reports that his pain is much better controlled today and currently rating his pain 2 out of 10 on the pain scale. Denies any complaints of shortness of breath. He remains hemodynamically stable and afebrile. Tolerating his incentive spirometry and achieving 1250 mL. Oxygen saturation are 95 percent on room air. Left pleural chest tube remains in place to water seal. Intermittent air leak is present. Draining thin serosanguineous drainage with 300 mL output the last 24 hours. Objective - Vital Signs Vital signs: Vital Signs Temp 98.0 F 03/04/19 08:00 Pulse 79 03/04/19 08:00 Resp 17 03/04/19 08:00 BP 114/54 03/04/19 08:00 Pulse Ox 95 03/04/19 08:00 Intake & Output 03/03/19 03/04/19 03/04/19 18:59 06:59 18:59 Intake Total 820 240 Output Total 2350 175 Balance -1530 -175 240 Weight 92.4 kg Intake: Oral 820 240 Output: Urine 2350 175 Other: Voiding Method Toilet Urinal # Voids 1 - Constitutional General appearance: Present: cooperative, no acute distress, obese - Respiratory Details: Lungs sounds essentially clear throughout, diminished to his bilateral bases left greater than right. Respirations are symmetrical and nonlabored. Oxygen saturation are 95% on room air. Achieving 1250 mL on his incentive spirometry. Left pleural chest tube remains in place to water seal. Draining thin serosanguineous drainage. 300 mL output in the last 24 hours. Intermittent air leak is present. - Cardiovascular Details: Regular rhythm and rate. S1 and S2 present, negative for S3, gallop or murmur. Remote telemetry showing normal sinus rhythm heart rate 72. No edema present. - Gastrointestinal Gastrointestinal Comment(s): Abdomen soft, nontender and nondistended. Active bowel sounds all 4 abdominal quadrants. No organomegaly. No guarding or rigidity. - Genitourinary Genitourinary Comment(s): Voiding clear yellow urine. - Integumentary Integumentary Comment(s): Skin is warm and dry. No clubbing or cyanosis is present. No rash or abnormal pigmentation is present. Left chest thoracoscopic incisions with dressings in place clean and dry. No drainage is present. Left chest tube dressing is clean, dry and intact. - Neurologic Neurologic: Present: CNII-XII intact - Musculoskeletal Musculoskeletal: Present: gait normal, strength equal bilaterally - Psychiatric Psychiatric: Present: A&O x's 3, appropriate affect, intact judgment & insight - Allied health notes Allied health notes reviewed: nursing - Labs CBC & Chem 7: 03/04/19 07:50 03/04/19 06:15 Labs: Abnormal Lab Results - Last 24 Hours (Table) 03/04/19 03/04/19 Range/Units 06:15 07:50 WBC 11.1 H (3.8-10.6) k/uL RBC 3.38 L (4.30-5.90) m/uL Hgb 11.4 L (13.0-17.5) gm/dL Hct 33.9 L (39.0-53.0) % MCV 100.4 H (80.0-100.0) fL RDW 15.7 H (11.5-15.5) % Neutrophils # 8.0 H (1.3-7.7) k/uL BUN 34 H (9-20) mg/dL Calcium 7.9 L (8.4-10.2) mg/dL AST 71 H (17-59) U/L Total Protein 5.9 L (6.3-8.2) g/dL Albumin 3.3 L (3.5-5.0) g/dL - Imaging and Cardiology Chest x-ray: report reviewed, image reviewed Assessment and Plan Assessment: 1. Left upper lobe lung mass 2. History of coronary artery disease with history of previous coronary artery bypass grafting surgery in 1991 and in 2009 3. History of hypertension 4. Hyperlipidemia 5. History of bilateral internal carotid artery stenosis 6. History of peripheral vascular disease 7. Remote history of tobacco dependence, in remission Plan: 1. Keep left pleural chest tube in place to water seal. 2. Monitor daily chest x-rays. 3. Encourage use of his incentive spirometry every hour while awake. 4. Bronchodilator management per pulmonology service. 5. Discussed the importance of continued smoking cessation. 6. DVT and GI prophylaxis. 7. Pathology results pending 8. Pain management per current pain medication regimen. Increase tramadol to 100 mg by mouth 3 times a day and add Toradol 15 mg IVP twice a day. 9. More recommendations to follow based on patient's clinical course. Time with Patient: Greater than 30
[2019-03-04] MEDS: ISOSORBIDE MONONITRATE ER 30 MG TAB.ER.24H PO SCH (12:33)
--- NOTE | 2019-03-04 14:29 | P.PN ---
Subjective Progress Note Date: 03/04/19 This is a 79-year-old male patient of Dr. Richards. Patient presented for an elective left lobectomy for lung cancer. Patient was diagnosed in December 2018 with lung CA. patient's past medical history of CAD, hyperlipidemia, hypertension, osteoarthritis, prostate With radiation seeds in 1989, melanoma, coronary artery bypass graft surgery and MRSA in 2007. Patient also had previous positive stress test prior to procedure in which she underwent cardiac catheterization for cardiac clearance. Patient is currently postop day 1. Pulmonary and cardiothoracic services are following. Patient is resting comfortably in bed. Pain meds per cardiothoracic surgery. At this time patient denies chest pain. Patient denies shortness of breath. Patient denies nausea vomiting or diarrhea. Patient denies any urinary burning or frequency. On 03/04/2019 patient was seen and examined on the telemetry floor he is alert and oriented 3 in no apparent distress he is complaining of cough and some shortness of breath otherwise he denies any complaints there is no fever or chills no headache or dizziness no chest pain no nausea or vomiting no abdominal pain no diarrhea and no urinary symptoms Objective - Vital Signs Vital signs: Vital Signs Temp 98.7 F 03/04/19 12:00 Pulse 66 03/04/19 12:00 Resp 22 03/04/19 12:00 BP 133/63 03/04/19 12:00 Pulse Ox 94 L 03/04/19 12:00 Intake & Output 03/03/19 03/04/19 03/04/19 18:59 06:59 18:59 Intake Total 820 480 Output Total 2350 175 Balance -1530 -175 480 Weight 92.4 kg Intake: Oral 820 480 Output: Urine 2350 175 Other: Voiding Method Toilet Urinal # Voids 1 1 - Exam In general patient is alert and oriented 3 in no distress Head normocephalic and atraumatic Neck supple no JVD no goiter Lungs clear to auscultation bilaterally no wheezing or crackles. Chest tube in place Heart regular rate and rhythm S1-S2, no rub or gallop Abdomen is soft nontender nondistended positive bowel sounds no hepatosplenomegaly Extremities no edema no cyanosis or clubbing Neuro no gross focal deficit - Labs CBC & Chem 7: 03/04/19 07:50 03/04/19 06:15 Labs: Abnormal Lab Results - Last 24 Hours (Table) 03/04/19 03/04/19 Range/Units 06:15 07:50 WBC 11.1 H (3.8-10.6) k/uL RBC 3.38 L (4.30-5.90) m/uL Hgb 11.4 L (13.0-17.5) gm/dL Hct 33.9 L (39.0-53.0) % MCV 100.4 H (80.0-100.0) fL RDW 15.7 H (11.5-15.5) % Neutrophils # 8.0 H (1.3-7.7) k/uL BUN 34 H (9-20) mg/dL Calcium 7.9 L (8.4-10.2) mg/dL AST 71 H (17-59) U/L Total Protein 5.9 L (6.3-8.2) g/dL Albumin 3.3 L (3.5-5.0) g/dL Assessment and Plan Plan: 1. Status post left thorascopic robotic-assisted left upper lobectomy with mediastinal lymph node dissection with Dr. Mejia. Postop day 1. Chest tube in place to low continuous wall suction. Cardiothoracic services following 2. Left upper lobe lung mass 3. History of coronary artery disease with history of previous CABG in 1991 and 2009. Patient did receive cardiac clearance prior to procedure 4. History of hypertension 5. History of hyperlipidemia 6. History of bilateral internal carotid artery stenosis 7. History of peripheral vascular disease 8. Previous history of nicotine dependence 9. History of prostate cancer 1989 10. History of melanoma DVT prophylaxis heparin. GI prophylaxis Protonix Thank you for this consultation we'll continue to follow patient closely throughout stay
--- NOTE | 2019-03-04 16:43 | PN ---
PROGRESS NOTE DATE OF SERVICE: 03/04/2019. He has been hemodynamically stable. He continues to have an air leak in the left chest tube. On physical examination: Blood pressure is 133/63, respiratory rate 22, pulse rate of 66, temperature 98.7, O2 saturation on room air is 94%. HEENT is unremarkable. CHEST: Reveals decreased breath sounds on the left with a chest tube in place. CARDIOVASCULAR SYSTEM: Revealed an S1, S2. No S3, S4. ABDOMEN: Soft. EXTREMITIES: There is no edema. IMPRESSION: At this time is: 1. Status post left upper lobectomy with mediastinal lymph node dissection. 2. Coronary artery disease status post coronary artery bypass. 3. Presurgical FEV1 normal. 4. Continued air leak in the left chest tube. At this point in time, continue incentive spirometry. Increase his activity level, maintain his nutrition. Continue him on his current medications which were reviewed. MMODL / IJN: [id number] /
[2019-03-04] MEDS: ATORVASTATIN 20 MG TAB PO SCH (20:53)
[2019-03-05 06:26] LABS: Basophils % (A) 0 %; Eosinophils # (A) 0.3 k/uL (0-0.7); Eosinophils % (A) 5 %; HCT 30.3 % (39.0-53.0); HGB 10.4 gm/dL (13.0-17.5); Lymphocytes # (A) 0.8 k/uL (1.0-4.8); Lymphocytes % (A) 11 %; MCH 33.1 pg (25.0-35.0); MCHC 34.1 g/dL (31.0-37.0); MCV 97.1 fL (80.0-100.0); Mean Platelet Volume 7.4; Monocytes # (A) 0.4 k/uL (0-1.0); Monocytes % (A) 6 %; Neutrophils # (A) 5.4 k/uL (1.3-7.7); Neutrophils % (A) 76 %; Platelet Count 136 k/uL (150-450); RBC 3.12 m/uL (4.30-5.90); RDW 15.8 % (11.5-15.5); WBC 7.1 k/uL (3.8-10.6)
[2019-03-05 06:42] LABS: Albumin 3.2 g/dL (3.5-5.0); Calcium 8.3 mg/dL (8.4-10.2); Potassium 4.5 mmol/L (3.5-5.1); Total Bilirubin 1.1 mg/dL (0.2-1.3); Total Protein 5.6 g/dL (6.3-8.2)
[2019-03-05] MEDS: PANTOPRAZOLE 40 MG TABLET PO SCH (06:46)
[2019-03-05] MEDS: IPRATROPIUM-ALBUTEROL 3 ML NEB IH SCH ×4 (07:38→19:45)
[2019-03-05] MEDS: FOLIC ACID 1 MG TAB PO SCH (08:11)
[2019-03-05] MEDS: HEPARIN SODIUM,PORCINE 5,000 UNIT/ML 1 ML VIAL SQ SCH ×3 (08:11→23:06)
[2019-03-05] MEDS: CHOLECALCIFEROL 400 UNIT TAB PO SCH (08:11)
[2019-03-05] MEDS: ATENOLOL 50 MG TAB PO SCH (08:11)
[2019-03-05] MEDS: KETOROLAC 30 MG/ML 1 ML VIAL IVP SCH ×2 (08:11→20:07)
[2019-03-05] MEDS: traMADol 50 MG TAB PO SCH ×2 (08:12→20:07)
--- NOTE | 2019-03-05 08:42 | XR ---
EXAMINATION TYPE: XR chest 2V DATE OF EXAM: 03/05/2019 COMPARISON: 03/04/2019 TECHNIQUE: PA and lateral views submitted. HISTORY: Postop FINDINGS: Left-sided chest tube and postsurgical changes noted with left-sided consolidation. Subcutaneous emph ysema noted. There is a 20% left-sided pneumothorax. Coarsened interstitium noted. Arthropathy of the shoulders. IMPRESSION: 1. Increasing approximately 20-25% left-sided pneumothorax. 2. Bibasilar consolidation.
--- NOTE | 2019-03-05 10:30 | P.PN ---
Subjective Progress Note Date: 03/05/19 This is a 79-year-old male patient of Dr. Richards. Patient presented for an elective left lobectomy for lung cancer. Patient was diagnosed in December 2018 with lung CA. patient's past medical history of CAD, hyperlipidemia, hypertension, osteoarthritis, prostate With radiation seeds in 1989, melanoma, coronary artery bypass graft surgery and MRSA in 2007. Patient also had previous positive stress test prior to procedure in which she underwent cardiac catheterization for cardiac clearance. Patient is currently postop day 1. Pulmonary and cardiothoracic services are following. Patient is resting comfortably in bed. Pain meds per cardiothoracic surgery. At this time patient denies chest pain. Patient denies shortness of breath. Patient denies nausea vomiting or diarrhea. Patient denies any urinary burning or frequency. On 03/04/2019 patient was seen and examined on the telemetry floor he is alert and oriented 3 in no apparent distress he is complaining of cough and some shortness of breath otherwise he denies any complaints there is no fever or chills no headache or dizziness no chest pain no nausea or vomiting no abdominal pain no diarrhea and no urinary symptoms On 03/05/2018 patient is alert and oriented 3 currently resting comfortably in bed. Patient has been up ambulating throughout the halls. This time patient denies chest pain or shortness breath. Patient denies nausea vomiting or diarrhea. Patient denies any urinary burning or frequency Objective - Vital Signs Vital signs: Vital Signs Temp 98.6 F 03/05/19 08:00 Pulse 68 03/05/19 08:00 Resp 16 03/05/19 08:00 BP 127/59 03/05/19 08:00 Pulse Ox 94 L 03/05/19 08:00 Intake & Output 03/04/19 03/05/19 03/05/19 18:59 06:59 18:59 Intake Total 720 240 Output Total 510 0 Balance 720 -510 240 Weight 92.7 kg Intake: Oral 720 240 Output: Chest Tube Drainage 110 0 Left Lateral Chest 110 0 Urine 400 Other: Voiding Method Urinal # Voids 1 0 - Exam In general patient is alert and oriented 3 in no distress Head normocephalic and atraumatic Neck supple no JVD no goiter Lungs clear to auscultation bilaterally no wheezing or crackles. Chest tube in place Heart regular rate and rhythm S1-S2, no rub or gallop Abdomen is soft nontender nondistended positive bowel sounds no hepatosplenomegaly Extremities no edema no cyanosis or clubbing Neuro no gross focal deficit - Labs CBC & Chem 7: 03/05/19 05:49 03/05/19 05:49 Labs: Abnormal Lab Results - Last 24 Hours (Table) 03/05/19 03/05/19 Range/Units 05:49 05:49 RBC 3.12 L (4.30-5.90) m/uL Hgb 10.4 L (13.0-17.5) gm/dL Hct 30.3 L (39.0-53.0) % RDW 15.8 H (11.5-15.5) % Plt Count 136 L (150-450) k/uL Lymphocytes # 0.8 L (1.0-4.8) k/uL BUN 32 H (9-20) mg/dL Calcium 8.3 L (8.4-10.2) mg/dL Total Protein 5.6 L (6.3-8.2) g/dL Albumin 3.2 L (3.5-5.0) g/dL Assessment and Plan Assessment: 1. Status post left thorascopic robotic-assisted left upper lobectomy with mediastinal lymph node dissection with Dr. Mejia. Postop day 3. Chest tube in place to low continuous wall suction. Cardiothoracic services following 2. Left upper lobe lung mass 3. History of coronary artery disease with history of previous CABG in 1991 and 2009. Patient did receive cardiac clearance prior to procedure 4. History of hypertension 5. History of hyperlipidemia 6. History of bilateral internal carotid artery stenosis 7. History of peripheral vascular disease 8. Previous history of nicotine dependence 9. History of prostate cancer 1989 10. History of melanoma 11. Secondary acute blood loss anemia secondary to surgery. Will order iron studies at this time DVT prophylaxis heparin. GI prophylaxis Protonix Thank you for this consultation we'll continue to follow patient closely throughout stay I performed an examination of the patient and discussed their management with e Nurse Practitioner. I have reviewed the Nurse Practitioner's notes and agree with the documented findings and plan of care
[2019-03-05] MEDS: ISOSORBIDE MONONITRATE ER 30 MG TAB.ER.24H PO SCH (11:11)
[2019-03-05] MEDS ORDERED: LACTULOSE 20 GM/30 ML CUP PO ONE (11:35)
--- NOTE | 2019-03-05 11:38 | P.PN ---
Subjective Progress Note Date: 03/05/19 Principal diagnosis: Left upper lobe lung mass, history of coronary artery disease with history of previous coronary artery bypass grafting surgery in 1991 and in 2010, hypertension, dyslipidemia, remote history of tobacco dependence in remission, history of bilateral carotid stenosis, and peripheral vascular disease. POD #3 left thoracoscopic robotic-assisted left upper lobectomy with mediastinal lymph node dissection. The patient is currently sitting up to the bedside chair on 3 S. cardiac stepdown unit. He is in no acute distress. Denies any complaints of shortness of breath and currently rates his pain 2 out of 10 on the pain scale 2 his chest tube insertion site. The patient reports that he has been having some drainage from his left chest tube insertion site and the nurses have been having to change his dressing a couple times a day. There is no redness or drainage at this time at the chest tube insertion site. He remains hemodynamically stable and afebrile. Tolerating his incentive spirometry and achieving 1250 mL. Oxygen saturation are 94 percent on room air. Left pleural chest tube remains in place to water seal. Intermittent air leak is present. Draining thin serosanguineous drainage with 110 mL output the last 24 hours. Objective - Vital Signs Vital signs: Vital Signs Temp 98.6 F 03/05/19 08:00 Pulse 68 03/05/19 08:00 Resp 16 03/05/19 08:00 BP 127/59 03/05/19 08:00 Pulse Ox 94 L 03/05/19 08:00 Intake & Output 03/04/19 03/05/19 03/05/19 18:59 06:59 18:59 Intake Total 720 240 Output Total 510 0 Balance 720 -510 240 Weight 92.7 kg Intake: Oral 720 240 Output: Chest Tube Drainage 110 0 Left Lateral Chest 110 0 Urine 400 Other: Voiding Method Urinal # Voids 1 0 - Constitutional General appearance: Present: cooperative, no acute distress, obese - Respiratory Details: Lungs sounds essentially clear to his right lobes, diminished to his left lower lobe. Respirations are symmetrical and nonlabored. Oxygen saturation are 94% on room air. He is achieving 1250 mL on his incentive spirometry. Left pleural chest tube remains in place to water seal. Intermittent air leak is present. Draining thin serosanguineous drainage with 110 mL output in the last 24 hours. - Cardiovascular Details: Regular rhythm and rate. S1 and S2 present, negative for S3, gallop or murmur. Remote telemetry showing normal sinus rhythm heart rate 76. No edema present. Knee-high STACEY hose and sequential compression devices in place to his bilateral lower extremities. - Gastrointestinal Gastrointestinal Comment(s): Abdomen is soft, nontender and nondistended. Active bowel sounds all 4 abdominal quadrants. No guarding or rigidity. No organomegaly. Tolerating oral intake. Passing flatus. - Genitourinary Genitourinary Comment(s): Voiding clear yellow urine. - Integumentary Integumentary Comment(s): Skin is warm and dry. No clubbing or cyanosis is present. Left thoracoscopy incisions clean, dry with dressings clean and dry. No drainage or redness present. Left chest tube insertion site with dressing clean and dry. No draina ge or redness at this time. - Neurologic Neurologic: Present: CNII-XII intact - Musculoskeletal Musculoskeletal: Present: gait normal, strength equal bilaterally - Psychiatric Psychiatric: Present: A&O x's 3, appropriate affect, intact judgment & insight - Allied health notes Allied health notes reviewed: nursing - Labs CBC & Chem 7: 03/05/19 05:49 03/05/19 05:49 Labs: Abnormal Lab Results - Last 24 Hours (Table) 03/05/19 03/05/19 Range/Units 05:49 05:49 RBC 3.12 L (4.30-5.90) m/uL Hgb 10.4 L (13.0-17.5) gm/dL Hct 30.3 L (39.0-53.0) % RDW 15.8 H (11.5-15.5) % Plt Count 136 L (150-450) k/uL Lymphocytes # 0.8 L (1.0-4.8) k/uL BUN 32 H (9-20) mg/dL Calcium 8.3 L (8.4-10.2) mg/dL Total Protein 5.6 L (6.3-8.2) g/dL Albumin 3.2 L (3.5-5.0) g/dL - Imaging and Cardiology Chest x-ray: report reviewed, image reviewed Assessment and Plan Assessment: 1. Left upper lobe lung mass 2. History of coronary artery disease with history of previous coronary artery bypass grafting surgery in 1991 and in 2009 3. History of hypertension 4. Hyperlipidemia 5. History of bilateral internal carotid artery stenosis 6. History of peripheral vascular disease 7. Remote history of tobacco dependence, in remission Plan: 1. Keep left pleural chest tube in place to water seal. 2. Monitor daily chest x-rays. 3. Encourage use of his incentive spirometry every hour while awake. 4. Bronchodilator management per pulmonology service. 5. Discussed the importance of continued smoking cessation. 6. DVT and GI prophylaxis. 7. Pathology results pending. 8. Pain management per current pain medication regimen. Decrease tramadol to 100 mg by mouth 2 times a day. Continue Toradol. 9. More recommendations to follow based on patient's clinical course. Time with Patient: Greater than 30
[2019-03-05 16:20] LABS: Anisocytosis Slight; Basophils % (A) 0 %; Eosinophils # (A) 0.4 k/uL (0-0.7); Eosinophils % (A) 3 %; HCT 35.1 % (39.0-53.0); HGB 11.8 gm/dL (13.0-17.5); Lymphocytes # (A) 1.2 k/uL (1.0-4.8); Lymphocytes % (A) 9 %; MCHC 33.5 g/dL (31.0-37.0); MCV 98.3 fL (80.0-100.0); Macrocytosis Slight; Mean Platelet Volume 7.3; Monocytes # (A) 0.8 k/uL (0-1.0); Monocytes % (A) 7 %; Neutrophils # (A) 10.3 k/uL (1.3-7.7); Neutrophils % (A) 79 %; Platelet Count 223 k/uL (150-450); RBC 3.57 m/uL (4.30-5.90); RDW 16.6 % (11.5-15.5)
[2019-03-05 16:31] LABS: Iron Saturation 15.72 (15.00-50.00)
--- NOTE | 2019-03-05 16:38 | PN ---
PROGRESS NOTE DATE OF SERVICE: 03/05/2019 He was seen on February2018. The patient has been hemodynamically stable. He continues to have an air leak on the left side. On physical examination, his respiratory rate is 16, pulse rate of 68, temperature 98.1, blood pressure 118/53, O2 saturation on room is 91%. HEENT is unremarkable. CHEST reveals decreased breath sounds on the left. CARDIOVASCULAR SYSTEM reveals S1, S2. ABDOMEN is soft. EXTREMITIES: There is no edema. IMPRESSION: At this time is: 1. Status post left upper lobectomy for lung cancer is likely. Final pathology is pending. 2. Ongoing air leak expected from surgery. Continue chest tube at this time. Continue incentive spirometry and increase his activity level. Depending on how he does, we shall make further changes to his care. MMODL / IJN: [id number] /
[2019-03-05] MEDS: ATORVASTATIN 20 MG TAB PO SCH (20:07)
[2019-03-06] MEDS: PANTOPRAZOLE 40 MG TABLET PO SCH (06:15)
[2019-03-06 06:21] LABS: Anisocytosis Slight; Basophils % (A) 0 %; Eosinophils # (A) 0.3 k/uL (0-0.7); Eosinophils % (A) 4 %; HCT 28.2 % (39.0-53.0); Lymphocytes # (A) 0.8 k/uL (1.0-4.8); Lymphocytes % (A) 12 %; MCH 33.4 pg (25.0-35.0); MCV 98.2 fL (80.0-100.0); Macrocytosis Slight; Mean Platelet Volume 7.5; Monocytes # (A) 0.4 k/uL (0-1.0); Monocytes % (A) 5 %; Neutrophils % (A) 76 %; Platelet Count 150 k/uL (150-450); RBC 2.87 m/uL (4.30-5.90); WBC 6.6 k/uL (3.8-10.6)
[2019-03-06 06:30] LABS: HGB 9.6 gm/dL (13.0-17.5)
[2019-03-06 06:32] LABS: Calcium 8.1 mg/dL (8.4-10.2); Potassium 4.1 mmol/L (3.5-5.1); Total Bilirubin 1.3 mg/dL (0.2-1.3); Total Protein 5.4 g/dL (6.3-8.2)
[2019-03-06] MEDS: traMADol 50 MG TAB PO SCH ×2 (08:29→22:15)
[2019-03-06] MEDS: HEPARIN SODIUM,PORCINE 5,000 UNIT/ML 1 ML VIAL SQ SCH ×3 (08:30→22:16)
[2019-03-06] MEDS: CHOLECALCIFEROL 400 UNIT TAB PO SCH (08:30)
[2019-03-06] MEDS: FOLIC ACID 1 MG TAB PO SCH (08:30)
[2019-03-06] MEDS: ATENOLOL 50 MG TAB PO SCH (08:30)
[2019-03-06] MEDS: KETOROLAC 30 MG/ML 1 ML VIAL IVP SCH ×2 (08:30→22:15)
--- NOTE | 2019-03-06 09:11 | XR ---
EXAMINATION TYPE: XR chest 2V DATE OF EXAM: 03/06/2019 COMPARISON: 03/05/2019 TECHNIQUE: PA and lateral views submitted. HISTORY: Post left upper lobe lobectomy FINDINGS: Left-sided chest tube and postsurgical changes noted with left-sided consolidation. Subcutaneous emph ysema noted. There is a 20% left-sided pneumothorax. Coarsened interstitium noted. Arthropathy of the shoulders. IMPRESSION: 1. Stable approximate 20-25% left-sided pneumothorax. 2. Bibasilar consolidation stable.
[2019-03-06] MEDS: IPRATROPIUM-ALBUTEROL 3 ML NEB IH SCH ×4 (09:20→20:22)
--- NOTE | 2019-03-06 10:57 | P.PN ---
Subjective Progress Note Date: 03/06/19 This is a 79-year-old male patient of Dr. Richards. Patient presented for an elective left lobectomy for lung cancer. Patient was diagnosed in December 2018 with lung CA. patient's past medical history of CAD, hyperlipidemia, hypertension, osteoarthritis, prostate With radiation seeds in 1989, melanoma, coronary artery bypass graft surgery and MRSA in 2007. Patient also had previous positive stress test prior to procedure in which she underwent cardiac catheterization for cardiac clearance. Patient is currently postop day 1. Pulmonary and cardiothoracic services are following. Patient is resting comfortably in bed. Pain meds per cardiothoracic surgery. At this time patient denies chest pain. Patient denies shortness of breath. Patient denies nausea vomiting or diarrhea. Patient denies any urinary burning or frequency. On 03/04/2019 patient was seen and examined on the telemetry floor he is alert and oriented 3 in no apparent distress he is complaining of cough and some shortness of breath otherwise he denies any complaints there is no fever or chills no headache or dizziness no chest pain no nausea or vomiting no abdominal pain no diarrhea and no urinary symptoms On 03/05/2019 patient is alert and oriented 3 currently resting comfortably in bed. Patient has been up ambulating throughout the halls. This time patient denies chest pain or shortness breath. Patient denies nausea vomiting or diarrhea. Patient denies any urinary burning or frequency On 03/06/2018 patient is alert and oriented 3. Chest tube remains in place. at this at this time patient denies chest pain or shortness of breath. Patient denies nausea vomiting or diarrhea. Patient denies any urinary burning or frequency Objective - Vital Signs Vital signs: Vital Signs Temp 98.5 F 03/06/19 08:00 Pulse 76 03/06/19 09:22 Resp 18 03/06/19 08:00 BP 128/60 03/06/19 08:00 Pulse Ox 88 L 03/06/19 09:22 Intake & Output 03/05/19 03/06/19 03/06/19 18:59 06:59 18:59 Intake Total 610 240 Output Total 0 500 Balance 610 -260 Weight 91.4 kg Intake: IV 10 0.9 10 Oral 600 240 Output: Chest Tube Drainage 0 100 Left Lateral Chest 0 100 Urine 400 Other: Voiding Method Urinal # Voids 1 1 # Bowel Movements 1 - Exam In general patient is alert and oriented 3 in no distress Head normocephalic and atraumatic Neck supple no JVD no goiter Lungs clear to auscultation bilaterally no wheezing or crackles. Chest tube in place Heart regular rate and rhythm S1-S2, no rub or gallop Abdomen is soft nontender nondistended positive bowel sounds no hepatosplenomegaly Extremities no edema no cyanosis or clubbing Neuro no gross focal deficit - Labs CBC & Chem 7: 03/06/19 05:43 03/06/19 05:43 Labs: Abnormal Lab Results - Last 24 Hours (Table) 03/05/19 03/05/19 03/06/19 Range/Units 05:49 15:50 05:43 WBC 13.0 H (3.8-10.6) k/uL RBC 3.57 L 2.87 L (4.30-5.90) m/uL Hgb 11.8 L 9.6 L D (13.0-17.5) gm/dL Hct 35.1 L 28.2 L (39.0-53.0) % RDW 16.6 H 16.0 H (11.5-15.5) % Neutrophils # 10.3 H (1.3-7.7) k/uL Lymphocytes # 0.8 L (1.0-4.8) k/uL BUN (9-20) mg/dL Calcium (8.4-10.2) mg/dL Iron 36 L (65-175) ug/dL Ferritin 331.2 H (22.0-322.0) ng/mL Total Protein (6.3-8.2) g/dL Albumin (3.5-5.0) g/dL 03/06/19 Range/Units 05:43 WBC (3.8-10.6) k/uL RBC (4.30-5.90) m/uL Hgb (13.0-17.5) gm/dL Hct (39.0-53.0) % RDW (11.5-15.5) % Neutrophils # (1.3-7.7) k/uL Lymphocytes # (1.0-4.8) k/uL BUN 32 H (9-20) mg/dL Calcium 8.1 L (8.4-10.2) mg/dL Iron (65-175) ug/dL Ferritin (22.0-322.0) ng/mL Total Protein 5.4 L (6.3-8.2) g/dL Albumin 3.0 L (3.5-5.0) g/dL Assessment and Plan Assessment: 1. Status post left thorascopic robotic-assisted left upper lobectomy with mediastinal lymph node dissection with Dr. Mejia. Postop day 4. Chest tube in place to low continuous wall suction. Cardiothoracic services following. Ongoing early to chest tube. Awaiting cardiothoracic surgery for further plan 2. Left upper lobe lung mass 3. History of coronary artery disease with history of previous CABG in 1991 and 2009. Patient did receive cardiac clearance prior to procedure 4. History of hypertension 5. History of hyperlipidemia 6. History of bilateral internal carotid artery stenosis 7. History of peripheral vascular disease 8. Previous history of nicotine dependence 9. History of prostate cancer 1989 10. History of melanoma 11. Expected Secondary acute blood loss anemia secondary to surgery. Hem oglobin 9.6 DVT prophylaxis heparin. GI prophylaxis Protonix Thank you for this consultation we'll continue to follow patient closely throughout stay I performed an examination of the patient and discussed their management with the Nurse Practitioner. I have reviewed the Nurse Practitioner's notes and agree with the documented findings and plan of care
[2019-03-06] MEDS: ISOSORBIDE MONONITRATE ER 30 MG TAB.ER.24H PO SCH (12:26)
--- NOTE | 2019-03-06 12:27 | P.PN ---
Subjective Progress Note Date: 03/06/19 Principal diagnosis: Left upper lobe lung mass. Previous medical history of coronary artery disease with history of previous coronary artery bypass grafting surgery in 1991 and in 2009, hypertension, dyslipidemia, previous tobacco dependence, history of bilateral carotid stenosis, peripheral vascular disease, prostate cancer status post radiation seed therapy in 1989, melanoma, and family history of heart disease and cancer. POD #4 left thoracoscopic robotic-assisted left upper lobectomy with mediastinal lymph node dissection. The patient is currently sitting up in bed in no acute distress. States pain is controlled on current medication regimen. Denies shortness of breath. He is actively using his incentive spirometry. He has had some drainage around the chest tube insertion site requiring more frequent dressing changes. Intermittent air leak remains present. Objective - Vital Signs Vital signs: Vital Signs Temp 98.5 F 03/06/19 08:00 Pulse 76 03/06/19 09:22 Resp 18 03/06/19 08:00 BP 128/60 03/06/19 08:00 Pulse Ox 88 L 03/06/19 09:22 Intake & Output 03/05/19 03/06/19 03/06/19 18:59 06:59 18:59 Intake Total 610 240 Output Total 0 500 Balance 610 -260 Weight 91.4 kg Intake: IV 10 0.9 10 Oral 600 240 Output: Chest Tube Drainage 0 100 Left Lateral Chest 0 100 Urine 400 Other: Voiding Method Urinal # Voids 1 1 # Bowel Movements 1 - Constitutional General appearance: Present: cooperative, no acute distress, obese - Respiratory Details: Lungs sounds diminished bilaterally. Respirations even, nonlabored. Currently on room air with oxygen saturation in the high 80s to low 90s. He is obtaining 1700 mL on his incentive spirometry. Left pleural chest tube remains to waterseal, 100 mL serosanguineous drainage overnight, 200 mL in the last 24 hours, positive intermittent air leak present. - Cardiovascular Details: S1, S2 present. Regular rate and rhythm, sinus rhythm on telemetry. Palpable peripheral pulses bilaterally. No edema present. No calf pain or tenderness noted. Antiembolism stockings, SCDs present. - Gastrointestinal Gastrointestinal Comment(s): Abdomen soft, nontender, nondistended. Active bowel sounds present 4 quadrants. Tolerating diet. Positive bowel movement yesterday. - Genitourinary Genitourinary Comment(s): Continues to void clear, yellow urine. - Integumentary Integumentary Comment(s): Skin is warm and dry with evidence of good perfusion. Dressing over left pleural chest tube remains clean and intact. - Neurologic Neurologic: Present: CNII-XII intact - Musculoskeletal Musculoskeletal: Present: gait normal, strength equal bilaterally - Psychiatric Psychiatric: Present: A&O x's 3, appropriate affect, intact judgment & insight - Allied health notes Allied health notes reviewed: nursing - Labs CBC & Chem 7: 03/06/19 05:43 03/06/19 05:43 Labs: Abnormal Lab Results - Last 24 Hours (Table) 03/05/19 03/05/19 03/06/19 Range/Units 05:49 15:50 05:43 WBC 13.0 H (3.8-10.6) k/uL RBC 3.57 L 2.87 L (4.30-5.90) m/uL Hgb 11.8 L 9.6 L D (13.0-17.5) gm/dL Hct 35.1 L 28.2 L (39.0-53.0) % RDW 16.6 H 16.0 H (11.5-15.5) % Neutrophils # 10.3 H (1.3-7.7) k/uL Lymphocytes # 0.8 L (1.0-4.8) k/uL BUN (9-20) mg/dL Calcium (8.4-10.2) mg/dL Iron 36 L (65-175) ug/dL Ferritin 331.2 H (22.0-322.0) ng/mL Total Protein (6.3-8.2) g/dL Albumin (3.5-5.0) g/dL 03/06/19 Range/Units 05:43 WBC (3.8-10.6) k/uL RBC (4.30-5.90) m/uL Hgb (13.0-17.5) gm/dL Hct (39.0-53.0) % RDW (11.5-15.5) % Neutrophils # (1.3-7.7) k/uL Lymphocytes # (1.0-4.8) k/uL BUN 32 H (9-20) mg/dL Calcium 8.1 L (8.4-10.2) mg/dL Iron (65-175) ug/dL Ferritin (22.0-322.0) ng/mL Total Protein 5.4 L (6.3-8.2) g/dL Albumin 3.0 L (3.5-5.0) g/dL - Imaging and Cardiology Chest x-ray: report reviewed, image reviewed Assessment and Plan Assessment: 1. Left upper lobe lung mass, status post thoracoscopic robotic-assisted left upper lobectomy 2. History of coronary artery disease with history of previous coronary artery bypass grafting surgery in 1991 and in 2009 3. History of hypertension 4. Hyperlipidemia 5. History of bilateral internal carotid artery stenosis 6. History of peripheral vascular disease 7. Previous tobacco dependence 8. History of prostate cancer with radiation seed therapy in 1989 9. History of melanoma 10. Family history of heart disease and cancer Plan: 1. Keep left pleural chest tube in place to water seal. Will monitor for resolution of air leak. 2. Will monitor daily chest x-rays. 3. Encourage use of his incentive spirometry every hour while awake. 4. Bronchodilators per pulmonology. 5. Encourage continued smoking cessation. 6. Increase activity, ambulate as tolerated. 7. DVT and GI prophylaxis. 8. Pathology results pending, will follow results. 9. Pain management with current medication regimen. 10. More recommendations to follow based on patient's clinical course. Time with Patient: Greater than 30
--- NOTE | 2019-03-06 14:53 | P.PN ---
Subjective Progress Note Date: 03/06/19 03/06/2019: Patient seen and examined for follow-up. The patient underwent left upper lobe resection. Pathology is pending. The patient states he feels fine and does not have any chest pain, shortness of breath. He does have an air leak at his chest tube. He is currently doing a breathing treatment. He states he has no needs or concerns. Objective - Vital Signs Vital signs: Vital Signs Temp 98.5 F 03/06/19 08:00 Pulse 78 03/06/19 13:26 Resp 18 03/06/19 12:00 BP 105/50 03/06/19 12:00 Pulse Ox 94 L 03/06/19 12:00 Intake & Output 03/05/19 03/06/19 03/06/19 18:59 06:59 18:59 Intake Total 610 480 Output Total 0 500 Balance 610 -20 Weight 91.4 kg Intake: IV 10 0.9 10 Oral 600 480 Output: Chest Tube Drainage 0 100 Left Lateral Chest 0 100 Urine 400 Other: Voiding Method Urinal # Voids 1 1 # Bowel Movements 1 - Exam General: alert and oriented 3 in no distress Lungs clear to auscultation bilaterally no wheezing or crackles. Chest tube in place with air leak Heart regular rate and rhythm S1-S2 Abdomen is soft nontender nondistended positive bowel sounds Extremities no edema - Labs CBC & Chem 7: 03/06/19 05:43 03/06/19 05:43 Labs: Abnormal Lab Results - Last 24 Hours (Table) 03/05/19 03/05/19 03/06/19 Range/Units 05:49 15:50 05:43 WBC 13.0 H (3.8-10.6) k/uL RBC 3.57 L 2.87 L (4.30-5.90) m/uL Hgb 11.8 L 9.6 L D (13.0-17.5) gm/dL Hct 35.1 L 28.2 L (39.0-53.0) % RDW 16.6 H 16.0 H (11.5-15.5) % Neutrophils # 10.3 H (1.3-7.7) k/uL Lymphocytes # 0.8 L (1.0-4.8) k/uL BUN (9-20) mg/dL Calcium (8.4-10.2) mg/dL Iron 36 L (65-175) ug/dL Ferritin 331.2 H (22.0-322.0) ng/mL Total Protein (6.3-8.2) g/dL Albumin (3.5-5.0) g/dL 03/06/19 Range/Units 05:43 WBC (3.8-10.6) k/uL RBC (4.30-5.90) m/uL Hgb (13.0-17.5) gm/dL Hct (39.0-53.0) % RDW (11.5-15.5) % Neutrophils # (1.3-7.7) k/uL Lymphocytes # (1.0-4.8) k/uL BUN 32 H (9-20) mg/dL Calcium 8.1 L (8.4-10.2) mg/dL Iron (65-175) ug/dL Ferritin (22.0-322.0) ng/mL Total Protein 5.4 L (6.3-8.2) g/dL Albumin 3.0 L (3.5-5.0) g/dL Assessment and Plan Assessment: s/p left upper lobectomy with mediastinal lymph node dissection Left upper lobe lung mass Coronary artery disease with history of previous CABG Hypertension Dyslipidemia Peripheral vascular disease Previous history of nicotine dependence History of prostate cancer 1989 History of melanoma Chest tube per Cardiothoracic surgery Pathology pending DVT prophylaxis heparin. GI prophylaxis Protonix Pain control IS and pulmonary hygiene Bronchodilators Out of bed as able
[2019-03-06 19:28] LABS: Basophils % (A) 0 %; Eosinophils # (A) 0.3 k/uL (0-0.7); Eosinophils % (A) 5 %; HCT 29.4 % (39.0-53.0); HGB 9.8 gm/dL (13.0-17.5); Lymphocytes # (A) 0.6 k/uL (1.0-4.8); Lymphocytes % (A) 9 %; MCH 32.9 pg (25.0-35.0); MCHC 33.3 g/dL (31.0-37.0); MCV 98.8 fL (80.0-100.0); Macrocytosis Slight; Mean Platelet Volume 8.1; Monocytes # (A) 0.5 k/uL (0-1.0); Monocytes % (A) 7 %; Neutrophils # (A) 5.4 k/uL (1.3-7.7); Neutrophils % (A) 78 %; Platelet Count 175 k/uL (150-450); RBC 2.98 m/uL (4.30-5.90); RDW 15.4 % (11.5-15.5); WBC 6.9 k/uL (3.8-10.6)
[2019-03-06] MEDS: ATORVASTATIN 20 MG TAB PO SCH (22:15)
[2019-03-07] MEDS: PANTOPRAZOLE 40 MG TABLET PO SCH (06:47)
[2019-03-07 07:51] LABS: Anisocytosis Slight; Basophils % (A) 0 %; Eosinophils # (A) 0.3 k/uL (0-0.7); Eosinophils % (A) 5 %; Lymphocytes # (A) 0.8 k/uL (1.0-4.8); Lymphocytes % (A) 13 %; MCH 33.5 pg (25.0-35.0); MCHC 34.3 g/dL (31.0-37.0); MCV 97.6 fL (80.0-100.0); Macrocytosis Slight; Mean Platelet Volume 7.6; Monocytes # (A) 0.5 k/uL (0-1.0); Monocytes % (A) 7 %; Neutrophils # (A) 4.7 k/uL (1.3-7.7); Neutrophils % (A) 72 %; Platelet Count 174 k/uL (150-450); Poikilocytosis Slight; RBC 2.97 m/uL (4.30-5.90); RDW 16.6 % (11.5-15.5); WBC 6.5 k/uL (3.8-10.6)
[2019-03-07 07:56] LABS: Albumin 3.4 g/dL (3.5-5.0); Calcium 8.1 mg/dL (8.4-10.2); Potassium 4.2 mmol/L (3.5-5.1); Total Bilirubin 1.3 mg/dL (0.2-1.3); Total Protein 5.8 g/dL (6.3-8.2)
[2019-03-07] MEDS: ATENOLOL 50 MG TAB PO SCH (08:37)
[2019-03-07] MEDS: CHOLECALCIFEROL 400 UNIT TAB PO SCH (08:37)
[2019-03-07] MEDS: FOLIC ACID 1 MG TAB PO SCH (08:37)
[2019-03-07] MEDS: traMADol 50 MG TAB PO SCH ×2 (08:38→21:49)
[2019-03-07] MEDS: KETOROLAC 30 MG/ML 1 ML VIAL IVP SCH (08:39)
[2019-03-07] MEDS: HEPARIN SODIUM,PORCINE 5,000 UNIT/ML 1 ML VIAL SQ SCH ×3 (08:39→21:50)
[2019-03-07] MEDS: IPRATROPIUM-ALBUTEROL 3 ML NEB IH SCH ×4 (08:40→20:58)
--- NOTE | 2019-03-07 09:00 | XR ---
EXAMINATION TYPE: XR chest 2V DATE OF EXAM: 03/07/2019 COMPARISON: 03/06/2019 TECHNIQUE: PA and lateral views submitted. HISTORY: Postop FINDINGS: Left-sided chest tube and postsurgical changes noted with left-sided consolidation. Subcutaneous emph ysema noted. There is a 15 % left-sided pneumothorax. Coarsened interstitium noted. Arthropathy of th e shoulders. Postsurgical changes are noted. Arthropathy of the shoulders. IMPRESSION: 1. There is an approximate 15% left-sided pneumothorax with left-sided consolidation small effusion.
[2019-03-07] MEDS: BISACODYL 10 MG SUPP RECTAL PRN (09:22)
--- NOTE | 2019-03-07 11:07 | P.PN ---
Subjective Progress Note Date: 03/07/19 This is a 79-year-old male patient of Dr. Richards. Patient presented for an elective left lobectomy for lung cancer. Patient was diagnosed in December 2018 with lung CA. patient's past medical history of CAD, hyperlipidemia, hypertension, osteoarthritis, prostate With radiation seeds in 1989, melanoma, coronary artery bypass graft surgery and MRSA in 2007. Patient also had previous positive stress test prior to procedure in which she underwent cardiac catheterization for cardiac clearance. Patient is currently postop day 1. Pulmonary and cardiothoracic services are following. Patient is resting comfortably in bed. Pain meds per cardiothoracic surgery. At this time patient denies chest pain. Patient denies shortness of breath. Patient denies nausea vomiting or diarrhea. Patient denies any urinary burning or frequency. On 03/04/2019 patient was seen and examined on the telemetry floor he is alert and oriented 3 in no apparent distress he is complaining of cough and some shortness of breath otherwise he denies any complaints there is no fever or chills no headache or dizziness no chest pain no nausea or vomiting no abdominal pain no diarrhea and no urinary symptoms On 03/05/2019 patient is alert and oriented 3 currently resting comfortably in bed. Patient has been up ambulating throughout the halls. This time patient denies chest pain or shortness breath. Patient denies nausea vomiting or diarrhea. Patient denies any urinary burning or frequency On 03/06/2018 patient is alert and oriented 3. Chest tube remains in place. at this at this time patient denies chest pain or shortness of breath. Patient denies nausea vomiting or diarrhea. Patient denies any urinary burning or frequency On 03/07/2019 patient alert and oriented 3. Chest tube remains in place with leak. Chest x-ray repeated this a.m. awaiting cardiothoracic of blood. Patient denies chest pain. Patient denies nausea vomiting or diarrhea. Patient denies any urinary burning or frequency Objective - Vital Signs Vital signs: Vital Signs Temp 98.7 F 03/07/19 08:00 Pulse 67 03/07/19 08:00 Resp 20 03/07/19 08:00 BP 155/67 03/07/19 08:00 Pulse Ox 92 L 03/07/19 08:00 Intake & Output 03/06/19 03/07/19 03/07/19 18:59 06:59 18:59 Intake Total 720 Output Total 1000 400 125 Balance -280 -400 -125 Weight 90.8 kg Intake: Oral 720 Output: Chest Tube Drainage 100 75 Left Lateral Chest 100 75 Urine 900 325 125 Other: Voiding Method Urinal # Voids 1 - Exam In general patient is alert and oriented 3 in no distress Head normocephalic and atraumatic Neck supple no JVD no goiter Lungs clear to auscultation bilaterally no wheezing or crackles. Chest tube in place Heart regular rate and rhythm S1-S2, no rub or gallop Abdomen is soft nontender nondistended positive bowel sounds no hepatosplenomegaly Extremities no edema no cyanosis or clubbing Neuro no gross focal deficit - Labs CBC & Chem 7: 03/07/19 07:23 03/07/19 07:23 Labs: Abnormal Lab Results - Last 24 Hours (Table) 03/06/19 03/07/19 03/07/19 Range/Units 19:15 07:23 07:23 RBC 2.98 L 2.97 L (4.30-5.90) m/uL Hgb 9.8 L 10.0 L (13.0-17.5) gm/dL Hct 29.4 L 29.0 L (39.0-53.0) % RDW 16.6 H (11.5-15.5) % Lymphocytes # 0.6 L 0.8 L (1.0-4.8) k/uL BUN 29 H (9-20) mg/dL Glucose 101 H (74-99) mg/dL Calcium 8.1 L (8.4-10.2) mg/dL Total Protein 5.8 L (6.3-8.2) g/dL Albumin 3.4 L (3.5-5.0) g/dL Assessment and Plan Assessment: 1. Status post left thorascopic robotic-assisted left upper lobectomy with mediastinal lymph node dissection with Dr. Mejia. Postop day 5. Chest tube in place to low continuous wall suction. Cardiothoracic services following. Ongoing early to chest tube. Awaiting cardiothoracic surgery for further plan. Patient having increased drainage from chest tube insertion site intermittent air leak remains. Chest x-ray ordered per cardiothoracic team 2. Left upper lobe lung mass 3. History of coronary artery disease with history of previous CABG in 1991 and 2009. Patient did receive cardiac clearance prior to procedure 4. History of hypertension 5. History of hyperlipidemia 6. History of bilateral internal carotid artery stenosis 7. History of peripheral vascular disease 8. Previous history of nicotine dependence 9. History of prostate cancer 1989 10. History of melanoma 11. Expected Secondary acute blood loss anemia secondary to surgery. Hemoglobin 9.6 DVT prophylaxis heparin. GI prophylaxis Protonix Thank you for this consultation we'll continue to follow patient closely throughout stay I performed an examination of the patient and discussed their management with the Nurse Practitioner. I have reviewed the Nurse Practitioner's notes and agree with the documented findings and plan of care
[2019-03-07] MEDS: ISOSORBIDE MONONITRATE ER 30 MG TAB.ER.24H PO SCH (11:49)
--- NOTE | 2019-03-07 12:08 | P.PN ---
Subjective Progress Note Date: 03/07/19 Principal diagnosis: Left upper lobe lung mass. Previous medical history of coronary artery disease with history of previous coronary artery bypass grafting surgery in 1991 and in 2009, hypertension, dyslipidemia, previous tobacco dependence, history of bilateral carotid stenosis, peripheral vascular disease, prostate cancer status post radiation seed therapy in 1989, melanoma, and family history of heart disease and cancer. POD #5 left thoracoscopic robotic-assisted left upper lobectomy with mediastinal lymph node dissection. The patient is currently laying in bed in no acute distress. States pain is controlled on current medication regimen. Denies shortness of breath. He is actively using his incentive spirometry. He has had some drainage around the chest tube insertion site requiring more frequent dressing changes. Intermittent air leak remains present but decreasing. Objective - Vital Signs Vital signs: Vital Signs Temp 97.3 F L 03/07/19 11:24 Pulse 72 03/07/19 11:24 Resp 20 03/07/19 11:24 BP 105/68 03/07/19 11:24 Pulse Ox 91 L 03/07/19 11:24 Intake & Output 03/06/19 03/07/19 03/07/19 18:59 06:59 18:59 Intake Total 720 Output Total 1000 400 125 Balance -280 -400 -125 Weight 90.8 kg Intake: Oral 720 Output: Chest Tube Drainage 100 75 Left Lateral Chest 100 75 Urine 900 325 125 Other: Voiding Method Urinal # Voids 1 - Constitutional General appearance: Present: cooperative, no acute distress - Respiratory Details: Lungs sounds diminished bilaterally. Respirations even, nonlabored. Currently on room air with oxygen saturation 92%. He is obtaining 1700 mL on his incentive spirometry. Left pleural chest tube remains to waterseal, 75 mL serosanguineous drainage overnight, 300 mL in the last 24 hours, positive intermittent air leak present. - Cardiovascular Details: S1, S2 present. Regular rate and rhythm, sinus rhythm on telemetry. Palpable peripheral pulses bilaterally. No edema present. No calf pain or tenderness noted. Antiembolism stockings, SCDs present. - Gastrointestinal Gastrointestinal Comment(s): Abdomen soft, nontender, nondistended. Active bowel sounds present 4 quadrants. Tolerating diet. Positive bowel movement. - Genitourinary Genitourinary Comment(s): Continues to void clear, yellow urine. - Integumentary Integumentary Comment(s): Skin is warm and dry with evidence of good perfusion. Dressing over left pleural chest tube remains clean and intact. - Neurologic Neurologic: Present: CNII-XII intact - Musculoskeletal Musculoskeletal: Present: gait normal, strength equal bilaterally - Psychiatric Psychiatric: Present: A&O x's 3, appropriate affect, intact judgment & insight - Allied health notes Allied health notes reviewed: nursing - Labs CBC & Chem 7: 03/07/19 07:23 03/07/19 07:23 Labs: Abnormal Lab Results - Last 24 Hours (Table) 03/06/19 03/07/19 03/07/19 Range/Units 19:15 07:23 07:23 RBC 2.98 L 2.97 L (4.30-5.90) m/uL Hgb 9.8 L 10.0 L (13.0-17.5) gm/dL Hct 29.4 L 29.0 L (39.0-53.0) % RDW 16.6 H (11.5-15.5) % Lymphocytes # 0.6 L 0.8 L (1.0-4.8) k/uL BUN 29 H (9-20) mg/dL Glucose 101 H (74-99) mg/dL Calcium 8.1 L (8.4-10.2) mg/dL Total Protein 5.8 L (6.3-8.2) g/dL Albumin 3.4 L (3.5-5.0) g/dL - Imaging and Cardiology Chest x-ray: report reviewed, image reviewed Assessment and Plan Assessment: 1. Left upper lobe lung mass, status post thoracoscopic robotic-assisted left upper lobectomy 2. History of coronary artery disease with history of previous coronary artery bypass grafting surgery in 1991 and in 2009 3. History of hypertension 4. Hyperlipidemia 5. History of bilateral internal carotid artery stenosis 6. History of peripheral vascular disease 7. Previous tobacco dependence 8. History of prostate cancer with radiation seed therapy in 1989 9. History of melanoma 10. Family history of heart disease and cancer Plan: 1. Keep left pleural chest tube in place to water seal. Will monitor for resolution of air leak. 2. Will monitor daily chest x-rays. 3. Encourage use of his incentive spirometry every hour while awake. 4. Bronchodilators per pulmonology. 5. Encourage continued smoking cessation. 6. Increase activity, ambulate as tolerated. 7. DVT and GI prophylaxis. 8. Pathology results pending, will follow results. 9. Pain management with current medication regimen. 10. More recommendations to follow based on patient's clinical course. Time with Patient: Greater than 30
--- NOTE | 2019-03-07 12:33 | PN ---
PROGRESS NOTE DATE OF SERVICE: 03/08/2019 He has been hemodynamically stable. He does not seem to have an air leak today. He has a left chest tube in place, but does have some bloody drainage. PHYSICAL EXAMINATION: Blood pressure is 105/68, respiratory rate of 20, pulse rate of 72, temperature 97.3, O2 saturation on room air is 91% HEENT is unremarkable. Chest reveals chest tube in the left with decreased breath sounds. Cardiovascular system reveals an S1, S2. Abdomen is soft. There is no edema. Chest x-ray shows 15% left-sided pneumothorax with left-sided consolidation and small effusion. IMPRESSION: 1. Status post left upper lobectomy for lung cancer. Await final pathology. 2. Left-sided pneumothorax, expected from surgery for which will continue incentive spirometry and chest tube per Cardiothoracic Surgery. Increase his activity level. His prognosis is fair. MMODL / IJN: [id number] /
[2019-03-07] MEDS: ATORVASTATIN 20 MG TAB PO SCH (21:49)
[2019-03-08] MEDS: PANTOPRAZOLE 40 MG TABLET PO SCH (06:12)
[2019-03-08] MEDS: ACETAMINOPHEN TAB 500 MG TAB PO PRN (06:12)
[2019-03-08 07:01] LABS: Anisocytosis Slight; Basophils % (A) 0 %; Eosinophils # (A) 0.4 k/uL (0-0.7); Eosinophils % (A) 5 %; HCT 28.6 % (39.0-53.0); HGB 9.7 gm/dL (13.0-17.5); Lymphocytes # (A) 0.8 k/uL (1.0-4.8); Lymphocytes % (A) 10 %; MCH 33.5 pg (25.0-35.0); MCV 98.6 fL (80.0-100.0); Macrocytosis Slight; Mean Platelet Volume 7.1; Monocytes # (A) 0.4 k/uL (0-1.0); Monocytes % (A) 6 %; Neutrophils # (A) 5.6 k/uL (1.3-7.7); Neutrophils % (A) 76 %; Platelet Count 196 k/uL (150-450); Poikilocytosis Slight; RDW 16.9 % (11.5-15.5); WBC 7.3 k/uL (3.8-10.6)
[2019-03-08 07:33] LABS: Potassium 4.3 mmol/L (3.5-5.1); Total Bilirubin 1.3 mg/dL (0.2-1.3); Total Protein 5.5 g/dL (6.3-8.2)
[2019-03-08] MEDS: traMADol 50 MG TAB PO SCH ×2 (08:36→21:19)
[2019-03-08] MEDS: FOLIC ACID 1 MG TAB PO SCH (08:36)
[2019-03-08] MEDS: ATENOLOL 50 MG TAB PO SCH (08:36)
[2019-03-08] MEDS: CHOLECALCIFEROL 400 UNIT TAB PO SCH (08:36)
[2019-03-08] MEDS: HEPARIN SODIUM,PORCINE 5,000 UNIT/ML 1 ML VIAL SQ SCH ×2 (08:36→16:53)
[2019-03-08] MEDS: IPRATROPIUM-ALBUTEROL 3 ML NEB IH SCH ×4 (09:20→21:14)
--- NOTE | 2019-03-08 09:45 | XR ---
EXAMINATION TYPE: XR chest 2V DATE OF EXAM: 03/08/2019 COMPARISON: Prior chest x-ray 03/07/2019 HISTORY: Chest tube, post lobectomy TECHNIQUE: Frontal and lateral views of the chest are obtained. FINDINGS: No significant interval change. Left-sided chest tube remains in place, small pneumothorax persists. Pleural parenchymal changes are similar, patient is post median sternotomy. There is subcu taneous emphysema and there are overlying cardiac leads. IMPRESSION: Stable findings. Postop changes.
--- NOTE | 2019-03-08 11:10 | P.PN ---
Subjective Progress Note Date: 03/08/19 This is a 79-year-old male patient of Dr. Richards. Patient presented for an elective left lobectomy for lung cancer. Patient was diagnosed in December 2018 with lung CA. patient's past medical history of CAD, hyperlipidemia, hypertension, osteoarthritis, prostate With radiation seeds in 1989, melanoma, coronary artery bypass graft surgery and MRSA in 2007. Patient also had previous positive stress test prior to procedure in which she underwent cardiac catheterization for cardiac clearance. Patient is currently postop day 1. Pulmonary and cardiothoracic services are following. Patient is resting comfortably in bed. Pain meds per cardiothoracic surgery. At this time patient denies chest pain. Patient denies shortness of breath. Patient denies nausea vomiting or diarrhea. Patient denies any urinary burning or frequency. On 03/04/2019 patient was seen and examined on the telemetry floor he is alert and oriented 3 in no apparent distress he is complaining of cough and some shortness of breath otherwise he denies any complaints there is no fever or chills no headache or dizziness no chest pain no nausea or vomiting no abdominal pain no diarrhea and no urinary symptoms On 03/05/2019 patient is alert and oriented 3 currently resting comfortably in bed. Patient has been up ambulating throughout the halls. This time patient denies chest pain or shortness breath. Patient denies nausea vomiting or diarrhea. Patient denies any urinary burning or frequency On 03/06/2018 patient is alert and oriented 3. Chest tube remains in place. at this at this time patient denies chest pain or shortness of breath. Patient denies nausea vomiting or diarrhea. Patient denies any urinary burning or frequency On 03/07/2019 patient alert and oriented 3. Chest tube remains in place with leak. Chest x-ray repeated this a.m. awaiting cardiothoracic of blood. Patient denies chest pain. Patient denies nausea vomiting or diarrhea. Patient denies any urinary burning or frequency On patient is alert and oriented 3. Per patient cardiothoracic planning to remove chest tube today. Patient denies chest pain or shortness of breath. Patient denies nausea vomiting or diarrhea. Patient denies any urinary burning or frequency. Objective - Vital Signs Vital signs: Vital Signs Temp 98.8 F 03/08/19 08:05 Pulse 74 03/08/19 09:31 Resp 20 03/08/19 08:05 BP 115/60 03/08/19 08:05 Pulse Ox 92 L 03/08/19 08:05 Intake & Output 03/07/19 03/08/19 03/08/19 18:59 06:59 18:59 Intake Total 590 360 Output Total 1232 192 Balance -642 -192 360 Weight 90.9 kg Intake: Oral 590 360 Output: Chest Tube Drainage 7 192 Left Lateral Chest 7 192 Urine 1225 Other: Voiding Method Urinal # Voids 3 - Exam In general patient is alert and oriented 3 in no distress Head normocephalic and atraumatic Neck supple no JVD no goiter Lungs clear to auscultation bilaterally no wheezing or crackles. Chest tube in place Heart regular rate and rhythm S1-S2, no rub or gallop Abdomen is soft nontender nondistended positive bowel sounds no hepatosplenomegaly Extremities no edema no cyanosis or clubbing Neuro no gross focal deficit - Labs CBC & Chem 7: 03/08/19 06:25 03/08/19 06:25 Labs: Abnormal Lab Results - Last 24 Hours (Table) 03/08/19 03/08/19 Range/Units 06:25 06:25 RBC 2.90 L (4.30-5.90) m/uL Hgb 9.7 L (13.0-17.5) gm/dL Hct 28.6 L (39.0-53.0) % RDW 16.9 H (11.5-15.5) % Lymphocytes # 0.8 L (1.0-4.8) k/uL Chloride 108 H (98-107) mmol/L BUN 27 H (9-20) mg/dL Glucose 106 H (74-99) mg/dL Calcium 8.0 L (8.4-10.2) mg/dL Total Protein 5.5 L (6.3-8.2) g/dL Albumin 3.0 L (3.5-5.0) g/dL Assessment and Plan Assessment: 1. Status post left thorascopic robotic-assisted left upper lobectomy with mediastinal lymph node dissection with Dr. Mejia. Postop day 5. Chest tube in place to low continuous wall suction. Cardiothoracic services following. Ongoing early to chest tube. Awaiting cardiothoracic surgery for further plan. Patient having increased drainage from chest tube insertion site intermittent a ir leak remains. Plans to possibly remove chest tube today per cardiothoracic 2. Left upper lobe lung mass 3. History of coronary artery disease with history of previous CABG in 1991 and 2009. Patient did receive cardiac clearance prior to procedure 4. History of hypertension 5. History of hyperlipidemia 6. History of bilateral internal carotid artery stenosis 7. History of peripheral vascular disease 8. Previous history of nicotine dependence 9. History of prostate cancer 1989 10. History of melanoma 11. Expected Secondary acute blood loss anemia secondary to surgery. Hemoglobin 9.6 DVT prophylaxis heparin. GI prophylaxis Protonix Thank you for this consultation we'll continue to follow patient closely throughout stay I performed an examination of the patient and discussed their management with the Nurse Practitioner. I have reviewed the Nurse Practitioner's notes and agree with the documented findings and plan of care
--- NOTE | 2019-03-08 11:25 | PN ---
PROGRESS NOTE He was seen on 03/08/2019. He continues to have a left chest tube with a small air leak, less secretions from the chest tube. On physical, he has pain on the left chest, but does not seem in any respiratory distress. On physical examination, blood pressure is 115/60, respiratory rate of 20, pulse rate of 75, temperature 98.8, O2 saturation on room air is 92%. HEENT is unremarkable. Chest reveals decreased breath sounds on the left. Cardiovascular system reveals an S1, S2. Abdomen is soft. There is no edema. IMPRESSION: Lung cancer, status post left upper lobectomy for which the patient continues to have a chest tube and a small air leak. Increase his activity level. Continue incentive spirometry. His prognosis is guarded. MMODL / IJN: [id number] /
[2019-03-08] MEDS: ISOSORBIDE MONONITRATE ER 30 MG TAB.ER.24H PO SCH (11:54)
--- NOTE | 2019-03-08 14:53 | XR ---
EXAMINATION TYPE: XR chest 1V portable DATE OF EXAM: 03/08/2019 COMPARISON: Prior chest x-ray 03/08/2019 at earlier time HISTORY: Status post lobectomy, chest tube removal TECHNIQUE: Single frontal view of the chest is obtained. FINDINGS: Interval removal of the left chest tube. Persistent small apical pneumothorax is noted. Tapia bcutaneous emphysema again seen. Pleural parenchymal changes are essentially stable accounting for di fferences in technique. Patient is post median sternotomy and left upper lobectomy. IMPRESSION: Persistent apical pneumothorax status post chest tube removal. There may be underlying t rapped lung.
--- NOTE | 2019-03-08 16:08 | P.PN ---
Subjective Progress Note Date: 03/08/19 Principal diagnosis: Left upper lobe lung mass, history of coronary artery disease with history of previous coronary artery bypass grafting surgery in 1991 and in 2010, hypertension, dyslipidemia, remote history of tobacco dependence in remission, history of bilateral carotid stenosis, and peripheral vascular disease. POD #6 left thoracoscopic robotic-assisted left upper lobectomy with mediastinal lymph node dissection. The patient is currently sitting up to the bedside chair on 3 S. cardiac stepdown unit. He is in no acute distress. Denies any complaints of pain or shortness of breath. No further reports of drainage seeping around his chest tube. There is no redness or drainage at this time at the chest tube insertion site. He remains hemodynamically stable and afebrile. Tolerating his incentive spirometry and achieving 1500 mL. Oxygen saturation are 95 percent on room air. Left pleural chest tube remains in place to water seal. No air leak is present. Draining thin serosanguineous drainage with 160 mL output the last 24 hours. Objective - Vital Signs Vital signs: Vital Signs Temp 98.9 F 03/08/19 15:42 Pulse 74 03/08/19 15:42 Resp 20 03/08/19 15:42 BP 115/56 03/08/19 15:42 Pulse Ox 92 L 03/08/19 15:42 Intake & Output 03/07/19 03/08/19 03/08/19 18:59 06:59 18:59 Intake Total 590 720 Output Total 1232 192 Balance -642 -192 720 Weight 90.9 kg Intake: Oral 590 720 Output: Chest Tube Drainage 7 192 Left Lateral Chest 7 192 Urine 1225 Other: Voiding Method Urinal # Voids 3 3 - Constitutional General appearance: Present: cooperative, no acute distress, obese - Respiratory Details: Lungs sounds essentially clear throughout, diminished to his left lower lobe. Respirations are symmetrical and nonlabored. Oxygen saturation are 95% on room air. Achieving 1500 mL on his incentive spirometry. Left pleural chest tube remains to water seal. No air leak present. 160 mL output in the last 24 hours. Scant Subcu emphysema present to his left anterior and posterior chest. - Cardiovascular Details: Regular rhythm and rate. S1 and S2 present, negative for S3, gallop or murmur. No edema present. Remote telemetry showing normal sinus rhythm heart rate 72. Knee-high STACEY hose and sequential compression devices in place to his bilateral lower extremity Richard. - Gastrointestinal Gastrointestinal Comment(s): Abdomen soft, nontender and nondistended. Active bowel sounds all 4 abdominal quadrants. No guarding or rigidity. No organomegaly. Tolerating oral intake. - Genitourinary Genitourinary Comment(s): Voiding clear yellow urine. - Integumentary Integumentary Comment(s): Skin is warm and dry. No clubbing or cyanosis is present. Left pleural chest tube dressing clean, dry and intact. Left VATS incisions clean, dry and approximated. No drainage or redness present. - Neurologic Neurologic: Present: CNII-XII intact - Musculoskeletal Musculoskeletal: Present: gait normal, strength equal bilaterally - Psychiatric Psychiatric: Present: A&O x's 3, appropriate affect, intact judgment & insight - Allied health notes Allied health notes reviewed: nursing - Labs CBC & Chem 7: 03/08/19 06:25 03/08/19 06:25 Labs: Abnormal Lab Results - Last 24 Hours (Table) 03/08/19 03/08/19 Range/Units 06:25 06:25 RBC 2.90 L (4.30-5.90) m/uL Hgb 9.7 L (13.0-17.5) gm/dL Hct 28.6 L (39.0-53.0) % RDW 16.9 H (11.5-15.5) % Lymphocytes # 0.8 L (1.0-4.8) k/uL Chloride 108 H (98-107) mmol/L BUN 27 H (9-20) mg/dL Glucose 106 H (74-99) mg/dL Calcium 8.0 L (8.4-10.2) mg/dL Total Protein 5.5 L (6.3-8.2) g/dL Albumin 3.0 L (3.5-5.0) g/dL - Imaging and Cardiology Chest x-ray: report reviewed, image reviewed Assessment and Plan Assessment: 1. Left upper lobe lung mass, status post thoracoscopic robotic-assisted left upper lobectomy 2. History of coronary artery disease with history of previous coronary artery bypass grafting surgery in 1991 and in 2009 3. History of hypertension 4. Hyperlipidemia 5. History of bilateral internal carotid artery stenosis 6. History of peripheral vascular disease 7. Remote history of tobacco dependence, in remission 8. History of prostate cancer with radiation seed therapy 1989. 9. History of melanoma 10. Family history of heart disease and cancer. Plan: 1. Discontinue left pleural chest tube, repeat chest x-ray 2 hours after chest tube has been removed. 2. Monitor daily chest x-rays. 3. Encourage use of his incentive spirometry every hour while awake. 4. Bronchodilator management per pulmonology service. 5. Discussed the importance of continued smoking cessation. 6. DVT and GI prophylaxis. 7. Pathology results pending. 8. Pain management per current pain medication regimen. 9. Left pleural chest tube removed today at 11:30 AM without incident. 4 x 4 gauze dressing, impregnated gauze dressing in place and secured with tape. 10. Discharge planning in place, anticipate discharge home within the next 24 hours. 11. More recommendations to follow based on patient's clinical course. Time with Patient: Greater than 30
[2019-03-08] MEDS: ATORVASTATIN 20 MG TAB PO SCH (21:19)
[2019-03-09] MEDS: HEPARIN SODIUM,PORCINE 5,000 UNIT/ML 1 ML VIAL SQ SCH ×2 (01:06→08:53)
[2019-03-09] MEDS: PANTOPRAZOLE 40 MG TABLET PO SCH (06:31)
[2019-03-09] MEDS: IPRATROPIUM-ALBUTEROL 3 ML NEB IH SCH ×2 (07:32→11:02)
[2019-03-09 07:36] LABS: Basophils % (A) 0 %; Eosinophils # (A) 0.3 k/uL (0-0.7); Eosinophils % (A) 4 %; Lymphocytes # (A) 0.8 k/uL (1.0-4.8); Lymphocytes % (A) 11 %; MCH 33.4 pg (25.0-35.0); MCHC 33.3 g/dL (31.0-37.0); MCV 100.4 fL (80.0-100.0); Macrocytosis Slight; Mean Platelet Volume 7.4; Monocytes # (A) 0.5 k/uL (0-1.0); Monocytes % (A) 6 %; Neutrophils # (A) 5.9 k/uL (1.3-7.7); Neutrophils % (A) 76 %; Platelet Count 213 k/uL (150-450); Poikilocytosis Slight; RBC 2.99 m/uL (4.30-5.90); RDW 15.3 % (11.5-15.5); WBC 7.7 k/uL (3.8-10.6)
[2019-03-09 07:44] LABS: Albumin 3.1 g/dL (3.5-5.0); Calcium 8.1 mg/dL (8.4-10.2); Potassium 4.4 mmol/L (3.5-5.1); Total Bilirubin 1.2 mg/dL (0.2-1.3); Total Protein 5.6 g/dL (6.3-8.2)
--- NOTE | 2019-03-09 08:16 | XR ---
EXAMINATION TYPE: XR chest 1V portable DATE OF EXAM: 03/09/2019 COMPARISON: Prior chest x-ray 03/08/2019 HISTORY: Postop left upper lobectomy TECHNIQUE: Single frontal view of the chest is obtained. FINDINGS: Findings are not significantly changed. Pleural-parenchymal changes persist on the left, t here is a small residual pneumothorax. There may be contusion versus atelectasis or airspace disease present within the remaining lobe in the left hemithorax. Heart is obscured, patient is post median s ternotomy. Subcutaneous emphysema is again noted. IMPRESSION: Stable postop changes.
[2019-03-09] MEDS: CHOLECALCIFEROL 400 UNIT TAB PO SCH (08:52)
[2019-03-09] MEDS: traMADol 50 MG TAB PO SCH (08:52)
[2019-03-09] MEDS: FOLIC ACID 1 MG TAB PO SCH (08:53)
[2019-03-09] MEDS: ATENOLOL 50 MG TAB PO SCH (08:53)
[2019-03-09 09:01] VITALS: RESP 18
--- NOTE | 2019-03-09 10:32 | P.PN ---
Subjective Progress Note Date: 03/09/19 This is a 79-year-old male patient of Dr. Richards. Patient presented for an elective left lobectomy for lung cancer. Patient was diagnosed in December 2018 with lung CA. patient's past medical history of CAD, hyperlipidemia, hypertension, osteoarthritis, prostate With radiation seeds in 1989, melanoma, coronary artery bypass graft surgery and MRSA in 2007. Patient also had previous positive stress test prior to procedure in which she underwent cardiac catheterization for cardiac clearance. Patient is currently postop day 1. Pulmonary and cardiothoracic services are following. Patient is resting comfortably in bed. Pain meds per cardiothoracic surgery. At this time patient denies chest pain. Patient denies shortness of breath. Patient denies nausea vomiting or diarrhea. Patient denies any urinary burning or frequency. On 03/04/2019 patient was seen and examined on the telemetry floor he is alert and oriented 3 in no apparent distress he is complaining of cough and some shortness of breath otherwise he denies any complaints there is no fever or chills no headache or dizziness no chest pain no nausea or vomiting no abdominal pain no diarrhea and no urinary symptoms On 03/05/2019 patient is alert and oriented 3 currently resting comfortably in bed. Patient has been up ambulating throughout the halls. This time patient denies chest pain or shortness breath. Patient denies nausea vomiting or diarrhea. Patient denies any urinary burning or frequency On 03/06/2018 patient is alert and oriented 3. Chest tube remains in place. at this at this time patient denies chest pain or shortness of breath. Patient denies nausea vomiting or diarrhea. Patient denies any urinary burning or frequency On 03/07/2019 patient alert and oriented 3. Chest tube remains in place with leak. Chest x-ray repeated this a.m. awaiting cardiothoracic of blood. Patient denies chest pain. Patient denies nausea vomiting or diarrhea. Patient denies any urinary burning or frequency On 03/08/2019 patient is alert and oriented 3. Per patient cardiothoracic planning to remove chest tube today. Patient denies chest pain or shortness of breath. Patient denies nausea vomiting or diarrhea. Patient denies any urinary burning or frequency. On 03/09/2019 patient is alert and oriented 3 resting completed in bed. Chest tube was removed yesterday per cardiothoracic surgery. Patient denies any chest pain or shortness of breath. Patient denies nausea vomiting or diarrhea. Patient denies any urinary burning or frequency. Anticipate discharge today per cardiothoracic surgery Objective - Vital Signs Vital signs: Vital Signs Temp 98.2 F 03/09/19 08:57 Pulse 88 03/09/19 08:57 Resp 18 03/09/19 08:57 BP 130/69 03/09/19 08:57 Pulse Ox 93 L 03/09/19 08:57 Intake & Output 03/08/19 03/09/19 03/09/19 18:59 06:59 18:59 Intake Total 840 360 Output Total 300 Balance 840 -300 360 Weight 89.2 kg Intake: Oral 840 360 Output: Urine 300 Other: Voiding Method Toilet Toilet # Voids 3 1 1 # Bowel Movements 1 - Exam In general patient is alert and oriented 3 in no distress Head normocephalic and atraumatic Neck supple no JVD no goiter Lungs clear to auscultation bilaterally no wheezing or crackles. Chest tube in place Heart regular rate and rhythm S1-S2, no rub or gallop Abdomen is soft nontender nondistended positive bowel sounds no hepatosplenomegaly Extremities no edema no cyanosis or clubbing Neuro no gross focal deficit - Labs CBC & Chem 7: 03/09/19 07:17 03/09/19 07:17 Labs: Abnormal Lab Results - Last 24 Hours (Table) 03/09/19 03/09/19 Range/Units 07:17 07:17 RBC 2.99 L (4.30-5.90) m/uL Hgb 10.0 L (13.0-17.5) gm/dL Hct 30.0 L (39.0-53.0) % MCV 100.4 H (80.0-100.0) fL Lymphocytes # 0.8 L (1.0-4.8) k/uL Chloride 108 H (98-107) mmol/L BUN 26 H (9-20) mg/dL Glucose 107 H (74-99) mg/dL Calcium 8.1 L (8.4-10.2) mg/dL Total Protein 5.6 L (6.3-8.2) g/dL Albumin 3.1 L (3.5-5.0) g/dL Assessment and Plan Assessment: 1. Status post left thorascopic robotic-assisted left upper lobectomy with medi astinal lymph node dissection with Dr. Mejia. Postop day 5. Chest tube in place to low continuous wall suction. Cardiothoracic services following. Ongoing early to chest tube. Awaiting cardiothoracic surgery for further plan. Patient having increased drainage from chest tube insertion site intermittent air leak remains. Chest tube removed on 03/08/2019 per cardiothoracic surgery. Repeat chest x-ray showing stable postop changes. 2. Left upper lobe lung mass 3. History of coronary artery disease with history of previous CABG in 1991 and 2009. Patient did receive cardiac clearance prior to procedure 4. History of hypertension 5. History of hyperlipidemia 6. History of bilateral internal carotid artery stenosis 7. History of peripheral vascular disease 8. Previous history of nicotine dependence 9. History of prostate cancer 1989 10. History of melanoma 11. Expected Secondary acute blood loss anemia secondary to surgery. Hemoglobin 9.6 DVT prophylaxis heparin. GI prophylaxis Protonix Thank you for this consultation we'll continue to follow patient closely throughout stay I performed an examination of the patient and discussed their management with the Nurse Practitioner. I have reviewed the Nurse Practitioner's notes and agree with the documented findings and plan of care
[2019-03-09] MEDS: ISOSORBIDE MONONITRATE ER 30 MG TAB.ER.24H PO SCH (12:58)
[2019-03-09 13:57] VITALS: BP 133/69; PULSE 74; TEMP 97.8
--- NOTE | 2019-03-09 14:29 | P.PN ---
Subjective Progress Note Date: 03/09/19 03/09/2019: Patient seen and examined standing in the hallway. The patient states he has been discharged home. He states his breathing is fine and he has no needs or complaints. Objective - Vital Signs Vital signs: Vital Signs Temp 97.8 F 03/09/19 12:00 Pulse 74 03/09/19 12:00 Resp 18 03/09/19 12:00 BP 133/69 03/09/19 12:00 Pulse Ox 95 03/09/19 12:00 Intake & Output 03/08/19 03/09/19 03/09/19 18:59 06:59 18:59 Intake Total 840 720 Output Total 300 Balance 840 -300 720 Weight 89.2 kg Intake: Oral 840 720 Output: Urine 300 Other: Voiding Method Toilet Toilet # Voids 3 1 1 # Bowel Movements 1 - Exam General: alert and oriented 3 in no distress Lungs clear to auscultation bilaterally no wheezing or crackles Heart regular rate and rhythm S1-S2 Abdomen is soft nontender nondistended positive bowel sounds Extremities no edema - Labs CBC & Chem 7: 03/09/19 07:17 03/09/19 07:17 Labs: Abnormal Lab Results - Last 24 Hours (Table) 03/09/19 03/09/19 Range/Units 07:17 07:17 RBC 2.99 L (4.30-5.90) m/uL Hgb 10.0 L (13.0-17.5) gm/dL Hct 30.0 L (39.0-53.0) % MCV 100.4 H (80.0-100.0) fL Lymphocytes # 0.8 L (1.0-4.8) k/uL Chloride 108 H (98-107) mmol/L BUN 26 H (9-20) mg/dL Glucose 107 H (74-99) mg/dL Calcium 8.1 L (8.4-10.2) mg/dL Total Protein 5.6 L (6.3-8.2) g/dL Albumin 3.1 L (3.5-5.0) g/dL Assessment and Plan Assessment: s/p left upper lobectomy with mediastinal lymph node dissection Left upper lobe lung mass - metastatic melanoma Coronary artery disease with history of previous CABG Hypertension Dyslipidemia Peripheral vascular disease Previous history of nicotine dependence History of prostate cancer 1989 History of melanoma Chest tube per Cardiothoracic surgery Pathology pending DVT prophylaxis heparin. GI prophylaxis Protonix Pain control IS and pulmonary hygiene Bronchodilators OK to DC from pulmonary standpoint. Follow up 2-3 days
--- NOTE | 2019-03-10 14:22 | P.DS ---
Providers Date of admission: 03/02/19 09:49 Expected date of discharge: 03/09/19 Attending physician: Andrea Mejia Consults: 03/02/19 18:03 Consult Physician Routine Consulting Provider: Elton Fuller Consult Reason/Comments: Medical Managament Do you want consulting provider notified?: Yes Consult Physician Routine Consulting Provider: Maricruz Benavides Consult Reason/Comments: Pulmonary Managment Do you want consulting provider notified?: Yes Primary care physician: Ben Echeverria Hospital Course: FINAL DIAGNOSIS: 1. Left upper lobe lung mass 2. History of coronary artery disease with previous CABG in 1991 and 2009 3. Hypertension 4. Hyperlipidemia 5. Bilateral internal carotid artery stenosis 6. Peripheral vascular disease 7. Previous tobacco dependence 8. History of prostate cancer with radiation seed therapy in 1989 9. History of melanoma 10. Family history of heart disease and cancer 11. Final pathology consistent with metastatic melanoma PRINCIPAL PROCEDURE: 1. Left thoracoscopy, robotic-assisted left upper lobectomy with mediastinal lymph node dissection HISTORY OF PRESENT ILLNESS: This is a 78-year-old gentleman who follows with Dr. Echeverria, Dr. Benavides and Dr. Prince on an outpatient basis. Apparently this gentleman has chronic back pain, however he went to see his primary physician when the pain was getting worse. Chest x-ray was completed demonstrating a left-sided nodule. This was followed up with a computed tomography scan confirming presence of a 2.2 cm nodule in the posterior segment of the left upper lobe. The patient had a recent history of melanoma resection from the right shoulder as well as keratosis resection from the right hand. A PET scan was obtained demonstrating positive uptake in the pulmonary nodule with no evidence of metastatic disease. The patient was referred to Dr. Mejia from cardiothoracic surgery. He was recommended to undergo robotic-assisted left upper lobectomy. The usual perioperative course was discussed in detail with the patient and his family, all risks and benefits were explained, all questions were answered, and consent was obtained to proceed with surgery. The patient obtained cardiac clearance and surgery was scheduled shortly thereafter. HOSPITAL COURSE: The patient was brought to the hospital on 03/02/2019, taken to the preoperative area, prepared in the usual fashion, and subsequently taken to the operating room where Dr. Mejia performed a left thoracoscopy, robotic- assisted left upper lobectomy with mediastinal lymph node dissection. Upon comp letion of surgery the patient was extubated and taken to the recovery room for continued monitoring. Eventually he was admitted to [address] [place] [address] cardiac step-down unit. He continued to have an air leak and his left chest pleural chest tube was kept in until the air leak had sealed. On postop day #6 there was no further air leak, chest x-ray was stable, and the chest tube was discontinued. Follow-up chest x-ray the following morning was stable. His oxygen was titrated down, he was tolerating oral diet, his pain was controlled, and he was ready to be discharged to home on postoperative day #7. He received written and verbal instruction regarding his medications, activity restrictions, signs and symptoms requiring physician notification, and follow-up appointments. COMPLICATIONS: The patient experienced no postoperative complications. Patient Condition at Discharge: Stable Plan - Discharge Summary Discharge Rx Participant: Yes New Discharge Prescriptions: New Acetaminophen Tab [Tylenol] 1,000 mg PO Q6HR PRN tab PRN Reason: Fever and/ or Mild Pain Continue Cholecalciferol [Vitamin D3] 400 unit PO DAILY Folic Acid 1 mg PO DAILY Atenolol [Tenormin] 50 mg PO DAILY Isosorbide Mononitrate ER [Imdur] 30 mg PO DAILY@1200 hydrOXYzine HCL [Atarax] 25 mg PO DAILY PRN PRN Reason: Anxiety Nitroglycerin Sl Tabs [Nitrostat] 0.4 mg SUBLINGUAL Q5M PRN PRN Reason: Chest Pain Methotrexate Sodium [Methotrexate] 12.5 mg PO MO Simvastatin [Zocor] 40 mg PO HS Ibuprofen [Motrin Ib] 200 mg PO Q6H PRN PRN Reason: Pain Discharge Medication List Atenolol [Tenormin] 50 mg PO DAILY 04/11/18 [History] Cholecalciferol [Vitamin D3] 400 unit PO DAILY 04/11/18 [History] Folic Acid 1 mg PO DAILY 04/11/18 [History] Isosorbide Mononitrate ER [Imdur] 30 mg PO DAILY@1200 04/11/18 [History] Ibuprofen [Motrin Ib] 200 mg PO Q6H PRN 11/16/18 [History] Methotrexate Sodium [Methotrexate] 12.5 mg PO MO 11/16/18 [History] Nitroglycerin Sl Tabs [Nitrostat] 0.4 mg SUBLINGUAL Q5M PRN 11/16/18 [History] Simvastatin [Zocor] 40 mg PO HS 11/16/18 [History] hydrOXYzine HCL [Atarax] 25 mg PO DAILY PRN 11/16/18 [History] Acetaminophen Tab [Tylenol] 1,000 mg PO Q6HR PRN tab 03/09/19 [Rx] Follow up Appointment(s)/Referral(s): Andrea Mejia MD [STAFF PHYSICIAN] - 03/29/19 2:00 pm Maricruz Benavides DO [Doctor of Osteopathic Medicine] - 03/19/19 11:15 am [facility], [NON-STAFF] - Patient Instructions/Handouts: Spontaneous Pneumothorax (DC), Lung Lobectomy (DC), Video Assisted Thoracoscopic Surgery (DC) Activity/Diet/Wound Care/Special Instructions: DISCHARGE INSTRUCTIONS: 1. No driving for 2 weeks, or until physician gives their ok. 2. No lifting, pushing, or pulling more than 10 pounds for 2 weeks. The physician will advise of any restriction changes. 3. Continue pain control per as needed orders. Alternate acetaminophen (Tylenol) and ibuprofen (Motrin/Advil) for pain. 4. Continue with incentive spirometry and splinting until otherwise directed by the physician. 5. Leave chest tube dressing for 48 hours. After that, remove all dressings and shower daily. 6. Routine incision care. No powders, lotions, ointments on incisions. 7. Please call surgeon/PICK UP DRIVER for temp greater than 101 F or purulent drainage from incisions. Patricia Ruth NP Discharge Disposition: HOME WITH HOME HEALTH SERVICES
== END 2019-03-09 14:18 | disposition home health service (06) | DRG 164 ==
LOC: 2ORMAIN 03-02 09:49 → 3SCARD 03-02 18:45
PROVIDERS: ADMIT Thoracic Surgery (Cardiothoracic Vascular Surgery); ATTEND Thoracic Surgery (Cardiothoracic Vascular Surgery)
PROC: 0BBG4ZZ Excision of Left Upper Lung Lobe, Percutaneous Endoscopic Approach (ICD-10-PCS; principal; 2019-03-02 11:30)
PROC: 8E0W4CZ Robotic Assisted Procedure of Trunk Region, Percutaneous Endoscopic Approach (ICD-10-PCS; principal; 2019-03-02 11:30)
PROC: 07B74ZZ Excision of Thorax Lymphatic, Percutaneous Endoscopic Approach (ICD-10-PCS; principal; 2019-03-02 11:30)
DX: C78.02 Secondary malignant neoplasm of left lung (principal); D62 Acute posthemorrhagic anemia; J93.9 Pneumothorax, unspecified; Z85.820 Personal history of malignant melanoma of skin; E78.5 Hyperlipidemia, unspecified; G89.29 Other chronic pain; I10 Essential (primary) hypertension; I25.10 Atherosclerotic heart disease of native coronary artery without angina pectoris; I65.23 Occlusion and stenosis of bilateral carotid arteries; I73.9 Peripheral vascular disease, unspecified; Z79.899 Other long term (current) drug therapy; Z82.49 Family history of ischemic heart disease and other diseases of the circulatory system; Z85.46 Personal history of malignant neoplasm of prostate; Z86.14 Personal history of Methicillin resistant Staphylococcus aureus infection; Z87.891 Personal history of nicotine dependence; Z92.3 Personal history of irradiation; Z95.1 Presence of aortocoronary bypass graft
CPT/HCPCS: 71045; 71046; 80048; 80053; 82728; 83540; 83550; 85025; 86850; 86900; 86901; 88305; 88309; 88331; 88341; 88342; 94640; 94760

== ENCOUNTER → 2019-05-15 | Outpatient (CLI) | payer MEDICARE ==
--- NOTE | 2019-05-15 17:12 | CT ---
EXAMINATION TYPE: CT ChestAbdPelvis w con DATE OF EXAM: 05/15/2019 COMPARISON: PET/CT 11/28/2018 HISTORY: 79-year-old male with follow-up Melanoma. TECHNIQUE: Contiguous axial scanning of the chest, abdomen, and pelvis performed with IV Contrast, pa tient injected with 100 mL of Isovue M300. Delayed images through the kidneys were obtained. Coronal/ sagittal reconstructions performed. CT DLP: 1227.9 mGycm Automated exposure control for dose reduction was used. FINDINGS: Chest: Median sternotomy wires are present with post-CABG changes. Heart upper limits of normal in size. Aorta shows mild atherosclerotic arch calcifications with conventional arch vessel branching anatomy. 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 A few borderline-sized right paratracheal lymph nodes are minimally larger now measuring up to 1 cm v ersus 9 mm, previously. Possibly reactive/post inflammatory. Short interval follow-up recommended. Tapia bcarinal lymph node is elongated and borderline enlarged measuring 4.5 cm long axis x 1.5 cm short ax is versus only 9 mm short axis, previously. Interval left upper lobectomy. Background of moderate centrilobular emphysema. There is new pleural p arenchymal scarring and small to moderate left pleural effusion after lobectomy. ABDOMEN: No focal liver lesion or biliary ductal dilatation. Portal venous system is patent. Gallbladder, adrenal glands, right kidney, and pancreas appear within normal limits. Stable 1 cm cortical cyst upper pole left kidney. Spleen is enlarged at 14.5 cm. Mesh material along the anterior midline epigastric region just deep to the abdominal wall musculatur e. No dilated small bowel, free fluid, or free air. No mesenteric or retroperitoneal lymphadenopathy. Moderate atherosclerotic calcifications infrarenal abdominal aorta and iliac arteries. Focal severe e pisodic calcification mid segment of the SMA. Moderate stool right hemicolon. Descending and sigmoid colonic diverticulosis with redundant sigmoid colon. No pericolonic inflammatory change. Pelvis: Bladder nondistended. Mildly prominent stool distending the rectum up to 4.6 cm wide. Multiple surgic al clips along the perineum, possibly secondary to prior prostate surgery. No abnormal fluid collecti on the pelvis or pelvic lymphadenopathy seen. Bones: Degenerative changes at the hips. Degenerative disc disease mid to lower lumbar spine and mid thoraci c spine. Facet arthropathy mid to lower lumbar spine with grade 1 anterolisthesis at L3-L4. IMPRESSION: 1. BACKGROUND OF COPD AND AREAS OF INTERSTITIAL FIBROSIS. SMALL TO MODERATE-SIZED LEFT PLEURAL EFFUSI ON STATUS POST LEFT UPPER LOBECTOMY. 2. A FEW BORDERLINE-SIZED RIGHT PARATRACHEAL LYMPH NODES ARE MINIMALLY LARGER BY A MILLIMETER OR 2, N OW MEASURING UP TO 1 CM. SUBCARINAL LYMPH NODE IS LARGER AT 1.5 CM VERSUS 9 MM, PREVIOUSLY. FINDINGS MAY BE REACTIVE/POST INFLAMMATORY. ATTENTION ON FOLLOW-UP. 3. OTHERWISE, NO EVIDENCE FOR METASTATIC DISEASE. 4. MILD SPLENOMEGALY (14.5 CM). 5. LEFT-SIDED CLONIC DIVERTICULOSIS, GREATEST IN THE SIGMOID COLON. NO EVIDENCE FOR ACUTE DIVERTICULI TIS.
== END | disposition home or self-care (01) ==
LOC: RADCTMAIN 11:44
PROVIDERS: ATTEND Internal Medicine Hematology & Oncology
DX: J44.9 Chronic obstructive pulmonary disease, unspecified (principal); J84.10 Pulmonary fibrosis, unspecified; J90 Pleural effusion, not elsewhere classified; R59.0 Localized enlarged lymph nodes; K57.30 Diverticulosis of large intestine without perforation or abscess without bleeding; R16.1 Splenomegaly, not elsewhere classified; C43.61 Malignant melanoma of right upper limb, including shoulder; Z90.2 Acquired absence of lung [part of]
CPT/HCPCS: 82565; 84520; 71260; 74177; 36415; Q9967

== ENCOUNTER → 2019-05-15 | Outpatient (CLI) | payer MEDICARE ==
--- NOTE | 2019-05-15 14:53 | MR ---
EXAMINATION TYPE: MR brain wo/w con DATE OF EXAM: 05/15/2019 COMPARISON: NONE HISTORY: Malignant melanoma of right upper limb TECHNIQUE: Multiplanar, multisequence images of the brain and brainstem is performed without and with IV contras t, utilizing 9 mL intravenous Gadavist . FINDINGS: Diffusion weighted images demonstrate no evidence of a recent infarct or other diffusion abnormality. There is no extra-axial fluid collection. Moderate burden nonspecific periventricular and subcortic al white matter changes seen as T2/FLAIR hyperintense foci that are scattered. This is also seen in t he haylie. The ventricular system and cisternal spaces are symmetrically prominent compatible with age- related volume loss. Midline structures demonstrate normal morphology. The craniocervical junction appears within normal limits. Postcontrast images are limited by patient motion. Post contrast images demonstrate no abnorm al enhancement. The dural venous sinuses appear patent. The visualized sinuses are clear and the glob es are intact. IMPRESSION: 1. Post contrast images are limited by patient motion however no discrete intra-axial lesion is seen to suggest metastasis. Overall no abnormal enhancement is seen. 2. Moderate burden nonspecific white matter change, most commonly on the basis of chronic microangiop athy. 3. Age-related volume loss.
== END | disposition home or self-care (01) ==
LOC: RADMRIMAIN 11:56
PROVIDERS: ATTEND Internal Medicine Hematology & Oncology
DX: C43.61 Malignant melanoma of right upper limb, including shoulder (principal); R90.89 Other abnormal findings on diagnostic imaging of central nervous system
CPT/HCPCS: 70553; A9585

== ENCOUNTER → 2019-05-24 | Outpatient (CLI) | payer MEDICARE ==
[2019-05-24 12:03] LABS: Calcium 9.1 mg/dL (8.4-10.2); Potassium 4.5 mmol/L (3.5-5.1)
[2019-05-24 12:14] LABS: Basophils % (A) 1 %; Eosinophils # (A) 0.3 k/uL (0-0.7); Eosinophils % (A) 3 %; HCT 41.1 % (39.0-53.0); Lymphocytes # (A) 1.4 k/uL (1.0-4.8); Lymphocytes % (A) 17 %; MCH 29.4 pg (25.0-35.0); MCHC 31.6 g/dL (31.0-37.0); MCV 93.1 fL (80.0-100.0); Mean Platelet Volume 6.7; Monocytes # (A) 0.3 k/uL (0-1.0); Monocytes % (A) 4 %; Neutrophils # (A) 6.4 k/uL (1.3-7.7); Neutrophils % (A) 74 %; Platelet Count 236 k/uL (150-450); RBC 4.42 m/uL (4.30-5.90); RDW 15.2 % (11.5-15.5); WBC 8.6 k/uL (3.8-10.6)
== END | disposition home or self-care (01) ==
LOC: LABPAT 11:06
PROVIDERS: ATTEND Urology
DX: Z01.812 Encounter for preprocedural laboratory examination (principal); I10 Essential (primary) hypertension; A63.0 Anogenital (venereal) warts; Z79.899 Other long term (current) drug therapy
CPT/HCPCS: 36415; 80048; 85025

== ENCOUNTER 2019-05-31 09:20 | Day surgery (SDC) | payer MEDICARE ==
--- NOTE | 2019-05-17 06:23 | P.GSHP ---
History of Present Illness H&P Date: 05/17/19 The patient is a 79-year-old male who underwent a radical prostatectomy in the for prostate cancer. 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 He presented with an 8 cm area of apparent condyloma on the left groin/inner thigh and perianal regions, for which he underwent CO2 laser ablation in June 2018. He recently presented back with recurrent condyloma in the left groin, right ventricle phallus, and perianal regions. He will thus undergo repeat CO2 laser ablation. - Cardiovascular Cardiovascular: Denies chest pain, Denies shortness of breath - Genitourinary (Female) Genitourinary: Denies hematuria Past Medical History Past Medical History: Coronary Artery Disease (CAD), Cancer, Hyperlipidemia, Hypertension, Osteoarthritis (OA), Prostate Disorder Additional Past Medical History / Comment(s): prostatectomy for CA , dx- lung mass dec 2018, back pain, hx melanoma History of Any Multi-Drug Resistant Organisms: MRSA Date of last positivie culture/infection: 2007 MDRO Source:: R groin surgical site-had wound vac Past Surgical History: Appendectomy, Coronary Bypass/CABG, Heart Catheterization, Hernia Repair, Prostate Surgery, Tonsillectomy Additional Past Surgical History / Comment(s): Fem Pop bypass R groin. L shoulder surgery,prostatectomy,CABG x2-triple bypass each time-last CABG 2009, surgery for melanoma x3, recent cardiac cath. Past Anesthesia/Blood Transfusion Reactions: No Reported Reaction Additional Past Anesthesia/Blood Transfusion Reaction / Comment(s): no hx p roblems with prior blood transfusion Past Psychological History: No Psychological Hx Reported Smoking Status: Former smoker Past Alcohol Use History: None Reported Additional Past Alcohol Use History / Comment(s): Quit 1987,smoked approx 30yrs, 1ppd Past Drug Use History: None Reported - Past Family History Mother Family Medical History: Cancer Additional Family Medical History / Comment(s): Liver Sister(s) Family Medical History: Cancer Additional Family Medical History / Comment(s): brain Medications and Allergies Home Medications Medication Instructions Recorded Confirmed Type Atenolol [Tenormin] 50 mg PO DAILY 04/11/18 03/02/19 History Cholecalciferol [Vitamin D3] 400 unit PO DAILY 04/11/18 03/02/19 History Folic Acid 1 mg PO DAILY 04/11/18 03/02/19 History Isosorbide Mononitrate ER [Imdur] 30 mg PO DAILY@1200 04/11/18 03/02/19 History Ibuprofen [Motrin Ib] 200 mg PO Q6H PRN 11/16/18 03/02/19 History Methotrexate Sodium [Methotrexate] 12.5 mg PO MO 11/16/18 03/02/19 History Nitroglycerin Sl Tabs [Nitrostat] 0.4 mg SUBLINGUAL Q5M PRN 11/16/18 03/02/19 History Simvastatin [Zocor] 40 mg PO HS 11/16/18 03/02/19 History hydrOXYzine HCL [Atarax] 25 mg PO DAILY PRN 11/16/18 03/02/19 History Acetaminophen Tab [Tylenol] 1,000 mg PO Q6HR PRN tab 03/09/19 Rx Allergies Allergy/AdvReac Type Severity Reaction Status Date / Time No Known Allergies Allergy Verified 03/02/19 18:38 Surgical - Exam - General well developed, well nourished, no distress - Abdomen Abdomen: soft, non tender, no guarding, no rigid, no rebound - Genitourinary testicles non-tender, other (2-3 small condyloma are noted on the right ventricle phallus. 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 Dr. Gomez will treat perianal condyloma concurrently. The patient understands the procedure, including risks which include anesthesia, postoperative scarring, and recurrent condyloma.
[2019-05-28 14:43] VITALS: BMI 27.1
[~2019-05-31 09:20] MED LIST changes: -ALPRAZolam 0.25 MG TAB PO PRN; -ALPRAZolam 0.5 MG TAB PO PRN; -ASPIRIN 325 MG TAB PO STA; -ATORVASTATIN 80 MG TAB PO STA; +DEXAMETHASONE SOD PHOSPHATE 10 MG/ML 1 ML VIAL IV ONE; -HEPARIN SODIUM 1,000 UN/ML (10ML VL) IV ONE; -HEPARIN SODIUM 1,000 UN/ML (10ML VL) ONE; -IOPAMIDOL-370 125ML BTL INJ ONE; -IOPAMIDOL-370 50ML BTL INJ ONE; +LACTATED RINGERS 1,000 ML IV SCH; -LIDOCAINE 1% INJ 10MG/ML (20 ML MDV) ONE; -LIDOCAINE 1% INJ 10MG/ML (20 ML MDV) SQ ONE; -MIDAZOLAM 2 MG/2 ML VIAL IVP ONE; -NITROGLYCERIN SL TABS 0.4 MG TAB SUBLINGUAL PRN; +ONDANSETRON 4 MG/2 ML VIAL IVP ONE; +Pre Op ABX Message 1 EACH MISC MISCELLANE ONE; -RX INFO: IV CONTRAST WAS GIVEN 1 EACH MISC MISCELLANE PRN; -SODIUM CHLORIDE 0.9% 1,000 ML IV ONE; -SODIUM CHLORIDE 0.9% 1,000 ML IV SCH; -SODIUM CHLORIDE 0.9% 1,000 ML in EMPTY BAG 1 BAG IV ONE; -VERAPAMIL 2.5 MG/ML 2 ML AMP ONE; -VERAPAMIL SYRINGE (5 MG/10 ML) INTRAARTER ONE; -diphenhydrAMINE 50 MG/ML 1 ML VIAL IVP ONE; -diphenhydrAMINE 50 MG/ML 1 ML VIAL ONE; -fentaNYL (PF) 50 MCG/ML 2 ML AMP IVP ONE; -fentaNYL (PF) 50 MCG/ML 2 ML AMP ONE
[2019-05-31] MEDS ORDERED: LIDOCAINE 1% 20 ML VIAL (10MG/ML) FOR IV START INTRADERMA ONE (09:44)
[2019-05-31] MEDS ORDERED: AMINO ACID 5%-D25W 1,000 ML BAG IV ONE (10:24)
[2019-05-31] MEDS ORDERED: PROPOFOL 10 MG/ML 20 ML VIAL IV ONE (10:24)
[2019-05-31] MEDS ORDERED: fentaNYL (PF) 50 MCG/ML 2 ML AMP ONE (10:24)
[2019-05-31] MEDS ORDERED: LIDOCAINE 1% INJ 10MG/ML (20 ML MDV) ONE (10:24)
[2019-05-31] MEDS ORDERED: MIDAZOLAM 2 MG/2 ML VIAL ONE (10:24)
[2019-05-31] MEDS ORDERED: LIDOCAINE 1%-EPI 1:100,000 20 ML VIAL SQ ONE (10:52)
--- NOTE | 2019-05-31 11:13 | P.OP ---
Date of Procedure: 05/31/19 Preoperative Diagnosis: Penile and Left Groin Condyloma Acuminata Postoperative Diagnosis: Same Procedure(s) Performed: CO2 Laser Ablation of Penile and Left Groin Condyloma Acuminata Anesthesia: VI Surgeon: Dallas Chicas Estimated Blood Loss (ml): 0 IV fluids (ml): 300 Pathology: none sent Condition: stable Disposition: PACU Indications for Procedure: The patient is a 79-year-old male who underwent a radical prostatectomy in the for prostate cancer. 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 He presented with an 8 cm area of apparent condyloma on the left groin/inner thigh and perianal regions, for which he underwent CO2 laser ablation in June 2018. He recently presented back with recurrent condyloma in the left groin, right ventral phallus, and perianal regions. He will thus undergo repeat CO2 laser ablation. Operative Findings: 3 condyloma on the ventral phallus. Multiple condyloma on the left groin. Description of Procedure: The patient was taken to the operating room and placed in the dorsolithotomy position, with his legs supported in Rivera stirrups. The external genitalia was prepped and draped sterilely. Two small condyloma were noted on the right ventral phallus, and there was a questionable condyloma in the frenular region. No scrotal condyloma were seen. Multiple flat condyloma were present in the left groin crease, the largest measuring approximately 1 cm in diameter. All visible condyloma were treated using CO2 laser ablation. Some of the left groin condyloma were confluent with one another. Hemostasis was excellent. Dr. Gomez then treated the perianal lesions. Upon completion of the procedure, Silvadene cream was applied to the lesions and was taken to the recovery room in stable condition.
[2019-05-31] MEDS ORDERED: SILVER sulfADIAZINE Cream 400 GM 1 APPLIC APPLIC TOPICAL ONE ×2 (11:14→11:20)
--- NOTE | 2019-05-31 11:34 | P.OP ---
Date of Procedure: 05/31/19 Preoperative Diagnosis: Perianal condyloma Postoperative Diagnosis: Same Anesthesia: GETA Surgeon: Jose F Gomez Disposition: same day Description of Procedure: Patient is brought operative suite remained in supine position underwent general endotracheal anesthesia per Department of anesthesia timeout performed correct patient correct procedure correct site was verified urology previously excised the penile lesions please see their note for details. The perianal at 6:00 lesions were excised sent to pathology and fulgurated. There was once further posterior at 7:00 which were excised and sent to pathology and fulgurated there was also lesions further posterior over the coccyx which were excised with scalpel sent to pathology in the area was fulgurated. Rectal exam was performed no other abnormalities or lesions were noted Silvadene was placed patient tolerated procedure well no apparent complications
[2019-05-31 11:41] VITALS: TEMP 97.9
[2019-05-31] MEDS: HYDROmorphone 0.5 MG/0.5 ML SYRINGE IVP PRN ×2 (12:16→12:21)
[2019-05-31 14:23] VITALS: BP 186/62; PULSE 65; RESP 18
== END 2019-05-31 13:55 | disposition home or self-care (01) ==
LOC: OR 09:20
PROVIDERS: ATTEND Student in an Organized Health Care Education/Training Program
DX: A63.0 Anogenital (venereal) warts (principal); K64.4 Residual hemorrhoidal skin tags; I25.10 Atherosclerotic heart disease of native coronary artery without angina pectoris; E78.5 Hyperlipidemia, unspecified; E78.00 Pure hypercholesterolemia, unspecified; I10 Essential (primary) hypertension; M19.90 Unspecified osteoarthritis, unspecified site; I25.2 Old myocardial infarction; Z79.899 Other long term (current) drug therapy; Z95.1 Presence of aortocoronary bypass graft; Z90.79 Acquired absence of other genital organ(s); Z90.49 Acquired absence of other specified parts of digestive tract; Z90.89 Acquired absence of other organs; Z90.2 Acquired absence of lung [part of]; Z98.890 Other specified postprocedural states; Z86.14 Personal history of Methicillin resistant Staphylococcus aureus infection; Z85.46 Personal history of malignant neoplasm of prostate; Z85.51 Personal history of malignant neoplasm of bladder; Z85.118 Personal history of other malignant neoplasm of bronchus and lung; Z85.820 Personal history of malignant melanoma of skin; Z87.891 Personal history of nicotine dependence; Z82.49 Family history of ischemic heart disease and other diseases of the circulatory system; Z80.0 Family history of malignant neoplasm of digestive organs; Z80.8 Family history of malignant neoplasm of other organs or systems
CPT/HCPCS: 88305; 46922; 54057; 17110; J2250; J1100; J2405; J0690; J2001; J3010; J2704; J1170

== ENCOUNTER 2019-06-28 01:10 | Inpatient (IN) | payer MEDICARE ==
[2019-06-28] MEDS ORDERED: ONDANSETRON 4 MG/2 ML VIAL IVP STA (01:45)
[2019-06-28] MEDS ORDERED: MORPHINE SULFATE 4 MG/ML SYRINGE IVP STA (01:45)
[2019-06-28 01:54] LABS: Anisocytosis Slight; Basophils % (A) 0 %; Eosinophils # (A) 0.2 k/uL (0-0.7); Eosinophils % (A) 4 %; HCT 34.7 % (39.0-53.0); HGB 11.6 gm/dL (13.0-17.5); Lymphocytes # (A) 1.1 k/uL (1.0-4.8); Lymphocytes % (A) 19 %; MCH 30.6 pg (25.0-35.0); MCHC 33.4 g/dL (31.0-37.0); MCV 91.7 fL (80.0-100.0); Mean Platelet Volume 7.6; Monocytes # (A) 0.4 k/uL (0-1.0); Monocytes % (A) 7 %; Neutrophils % (A) 68 %; Platelet Count 163 k/uL (150-450); RBC 3.78 m/uL (4.30-5.90); RDW 17.6 % (11.5-15.5); WBC 5.9 k/uL (3.8-10.6)
[2019-06-28 02:04] LABS: Partial Thromboplastin Time 24.9 sec (22.0-30.0); Prothrombin Time 10.9 sec (9.0-12.0)
[2019-06-28 02:09] LABS: Albumin 3.5 g/dL (3.5-5.0); Calcium 8.9 mg/dL (8.4-10.2); Magnesium 2.3 mg/dL (1.6-2.3); Total Bilirubin 0.4 mg/dL (0.2-1.3); Total Protein 6.5 g/dL (6.3-8.2)
--- NOTE | 2019-06-28 02:19 | XR ---
EXAM: XR Chest, 2 Views CLINICAL HISTORY: Chest Pain TECHNIQUE: Frontal and lateral views of the chest. COMPARISON: 03/09/2019 FINDINGS: Lungs: Unremarkable. No consolidation. Pleural space: Similar moderate partially loculated left pleural effusion. No pneumothorax. Heart: Stable. Mediastinum: Stable postoperative mediastinum. Bones/joints: No acute osseous abnormality. Tubes, lines and devices: Telemetry leads overlie the patient. IMPRESSION: Similar moderate partially loculated left pleural effusion.
--- NOTE | 2019-06-28 02:25 | ED ---
Chest Pain HPI - General Chief Complaint: Chest Pain Stated Complaint: Chest Pain Time Seen by Provider: 06/28/19 01:28 Source: patient, EMS Mode of arrival: EMS Limitations: no limitations - History of Present Illness Initial Comments: 79-year-old male patient presents to the emergency department today for evaluation of chest pain. Patient states he initially had chest pain on 11 AM on 06/27/2019. Patient states that it lasted for a short time then resolved. Patient states that he went to bed feeling well. States he woke up around midnight with crushing substernal chest pain. Patient states it was radiating through to his back. Patient states that he did have some nausea with this but denies any shortness of breath or sweats. She does have history of coronary artery disease and 3 vessel CABG 2. Patient did receive aspirin and nitro in EMS. States that his symptoms did improve but his pain is returning. Patient states he did mow the lawn earlier but this is not unusual for him. Denies any pain or swelling to his legs. Patient denies any recent rash, fever, chills, abdominal pain, vomiting, diarrhea, constipation, back pain, numbness, tingling, dizziness, weakness, hematuria, dysuria, urinary urgency, urinary frequency, headache, visual changes, or any other complaints. - Related Data Home Medications Medication Instructions Recorded Confirmed Atenolol [Tenormin] 50 mg PO DAILY 04/11/18 05/31/19 Cholecalciferol [Vitamin D3] 400 unit PO DAILY 04/11/18 05/28/19 Folic Acid 1 mg PO DAILY 04/11/18 05/28/19 Isosorbide Mononitrate ER [Imdur] 30 mg PO DAILY@1200 04/11/18 05/28/19 Methotrexate Sodium [Methotrexate] 10 mg PO MO 11/16/18 05/31/19 Nitroglycerin Sl Tabs [Nitrostat] 0.4 mg SUBLINGUAL Q5M PRN 11/16/18 05/31/19 Simvastatin [Zocor] 40 mg PO HS 11/16/18 05/28/19 hydrOXYzine HCL [Atarax] 25 mg PO DAILY PRN 11/16/18 05/31/19 Previous Rx's Medication Instructions Recorded SILVER sulfADIAZINE Cream 1 applic TOPICAL DAILY #85 gram 05/31/19 [Silvadene 1% Cream] Allergies Allergy/AdvReac Type Severity Reaction Status Date / Time No Known Allergies Allergy Verified 06/28/19 01:25 Review of Systems ROS Statement: Those systems with pertinent positive or pertinent negative responses have been documented in the HPI. ROS Other: All systems not noted in ROS Statement are negative. EKG Findings - EKG Comments: EKG Findings:: EKG obtained at 11 19 shows normal sinus rhythm with sinus arrhythmia. Ventricular rate is 87, NH interval 192, QRS duration 88, QT 382, QTc 459. No evidence of ST elevation or depression. Past Medical History Past Medical History: Coronary Artery Disease (CAD), Cancer, Hyperlipidemia, Hy pertension, Osteoarthritis (OA), Prostate Disorder Additional Past Medical History / Comment(s): prostate CA-radiation seeds implant , dx- lung mass dec 2018, back pain, hx melanoma History of Any Multi-Drug Resistant Organisms: MRSA Date of last positivie culture/infection: 2007 MDRO Source:: R groin surgical site-had wound vac Past Surgical History: Appendectomy, Coronary Bypass/CABG, Heart Catheterization, Hernia Repair, Prostate Surgery, Tonsillectomy Additional Past Surgical History / Comment(s): Fem Pop bypass R groin. L shoulder surgery,prostatectomy,CABG x2-triple bypass each time-last CABG 2009, surgery for melanoma x3, recent cardiac cath. Past Anesthesia/Blood Transfusion Reactions: No Reported Reaction Additional Past Anesthesia/Blood Transfusion Reaction / Comment(s): no hx problems with prior blood transfusion Past Psychological History: No Psychological Hx Reported Smoking Status: Former smoker Past Alcohol Use History: None Reported Past Drug Use History: None Reported - Past Family History Mother Family Medical History: Cancer Additional Family Medical History / Comment(s): Liver Sister(s) Family Medical History: Cancer Additional Family Medical History / Comment(s): brain General Exam Limitations: no limitations General appearance: alert, in no apparent distress, other (This is a well- developed, well-nourished adult male patient in no acute distress. Vital signs upon presentation are temperature 97.7F, pulse 86, respirations 20, blood pressure 171/78, pulse ox 100% on room air.) Eye exam: Present: normal appearance, PERRL, EOMI. Absent: scleral icterus, conjunctival injection, periorbital swelling ENT exam: Present: normal exam, normal oropharynx, mucous membranes moist Respiratory exam: Present: normal lung sounds bilaterally. Absent: respiratory distress, wheezes, rales, rhonchi, stridor Cardiovascular Exam: Present: regular rate, normal rhythm, normal heart sounds. Absent: systolic murmur, diastolic murmur, rubs, gallop, clicks GI/Abdominal exam: Present: soft, tenderness (Midepigastric and left upper quadrant), normal bowel sounds. Absent: distended, guarding, rebound, rigid Neurological exam: Present: alert, oriented X3, CN II-XII intact Psychiatric exam: Present: normal affect, normal mood Skin exam: Present: warm, dry, intact, normal color. Absent: rash Course Vital Signs 06/28/19 06/28/19 01:22 03:14 Temperature 97.7 F 98 F Pulse Rate 86 65 Respiratory 20 18 Rate Blood Pressure 171/78 166/79 O2 Sat by Pulse 100 100 Oximetry Chest Pain [facility]:Two-view x-ray of the chest is obtained. Report was reviewed in its entirety. Impression by Dr. Aguila shows similar moderate partially loculated left pleural effusion. MDM: 79-year-old male patient with past medical history significant for coronary artery disease with history of three-vessel CABG 2 presents to the emergency department today for evaluation of crushing substernal chest pain. Physical examination is unremarkable. Lungs are clear to auscultation with good air movement. Patient chest x-ray shows no acute abnormalities. EKG showed sinus rhythm with a sinus arrhythmia. Initial troponin is negative. Given patient's history and risk factors she'll admit for observation for serial troponins and evaluation by cardiology in the morning. Disposition Clinical Impression: Chest pain Disposition: ADMITTED IP TO THIS HOSP Condition: Serious Referrals: Ben Echeverria MD [Primary Care Provider] - 1-2 days Decision to Admit Reason: Admit from EC Decision Date: 06/28/19 Decision Time: 03:29
[2019-06-28] MEDS ORDERED: NALOXONE 0.4 MG/ML 1 ML VIAL IV PRN (03:13)
[2019-06-28] MEDS ORDERED: ONDANSETRON 4 MG/2 ML VIAL IVP PRN (03:22)
[2019-06-28] MEDS ORDERED: MORPHINE SULFATE 4 MG/ML SYRINGE IV PRN (03:22)
[2019-06-28 05:45] VITALS: BMI 26.7
[2019-06-28] MEDS ORDERED: HEPARIN SODIUM,PORCINE 5,000 UNIT/ML 1 ML VIAL IV ONE (08:08)
[2019-06-28] MEDS ORDERED: HEPARIN SODIUM,PORCINE 5,000 UNIT/ML 1 ML VIAL IV PRN (08:08)
[2019-06-28] MEDS ORDERED: ASPIRIN 325 MG TAB PO STA (08:09)
--- NOTE | 2019-06-28 08:09 | P.CRDCN ---
History of Present Illness Consult date: 06/28/19 Requesting physician: Elton Fuller Consult reason: chest pain Chief complaint: Chest pain History of present illness: This is a pleasant 79-year-old gentleman who follows with Dr. Oumar padron in the office. He has a known history of hypertension, hyperlipidemia, peripheral vascular disease with prior right iliofemoral and fem-pop bypass, coronary artery disease with prior bypass surgery, three-vessel bypass in , three-vessel bypass in 2009, most recently patient underwent a cardiac catheterization in January of this year because of a positive stress test, cardiac catheterization revealed a patent graft to the LAD, OM branch and the right coronary artery. Total occlusion of the vein graft to the PLV branch of the RCA, diffuse disease involving the comanche vessels including the diagonal and OM branches and also significant lesion involving the left main. Ischemia documented on the stress test is most likely related to the comanche vessel disease, it was felt that they were small and not suitable for any intervention. Patient presents to the hospital on this occasion with symptoms of chest discomfort, patient states he had an episode of chest discomfort late in the evening, and a second episode that woke him up from sleep, he described the discomfort as a heavy sensation feeling like someone was sitting on his chest, he also had a component of sharp pain with that as well. There was mild worsening of the sharp pain with deep breathing but the pressure was unchanged. He denies any associated diaphoresis shortness of breath or nausea. The patient does state that he was outside yesterday which was a very hot day, cutting his grass, although was driving lawnmower he states that he felt quite fatigued after that. Chest x-ray on presentation here showed a moderate partially loculated pleural effusion on the left similar to prior. His initial EKG on presentation here showed a normal sinus rhythm with no acute changes. White blood cell count is normal, hemoglobin 11.6, platelet count 163. Sodium 140, potassium 4.0, BUN 31 and creatinine 1.0. Magnesium was 2.3. Troponin 0.012. At the time of my examination this morning, patient is currently chest pain- free. Past Medical History Past Medical History: Coronary Artery Disease (CAD), Cancer, Hyperlipidemia, Hypertension, Osteoarthritis (OA), Prostate Disorder Additional Past Medical History / Comment(s): prostate CA-radiation seeds i mplant , dx- lung mass dec 2018 with a lobectomy, back pain, hx melanoma, Wart (virus) removal sacrum and left groin May 2019, bladder cancer 2013 with scraping History of Any Multi-Drug Resistant Organisms: MRSA Date of last positivie culture/infection: 2007 MDRO Source:: R groin surgical site-had wound vac Past Surgical History: Appendectomy, Coronary Bypass/CABG, Heart Catheterization, Hernia Repair, Prostate Surgery, Tonsillectomy Additional Past Surgical History / Comment(s): Fem Pop bypass R groin x2. L shoulder surgery,prostatectomy,CABG x2-triple bypass each time-last CABG 2009, surgery for melanoma x3, recent cardiac cath. Past Anesthesia/Blood Transfusion Reactions: No Reported Reaction Additional Past Anesthesia/Blood Transfusion Reaction / Comment(s): no hx problems with prior blood transfusion Past Psychological History: No Psychological Hx Reported Smoking Status: Former smoker Past Alcohol Use History: None Reported Additional Past Alcohol Use History / Comment(s): Quit 1987,smoked approx 30yrs, 1ppd Past Drug Use History: None Reported - Past Family History Mother Family Medical History: Cancer Additional Family Medical History / Comment(s): Liver Sister(s) Family Medical History: Cancer Additional Family Medical History / Comment(s): brain Medications and Allergies Home Medications Medication Instructions Recorded Confirmed Type Atenolol [Tenormin] 50 mg PO DAILY 04/11/18 06/28/19 History Cholecalciferol [Vitamin D3] 400 unit PO DAILY 04/11/18 06/28/19 History Folic Acid 1 mg PO DAILY 04/11/18 06/28/19 History Isosorbide Mononitrate ER [Imdur] 30 mg PO DAILY@1200 04/11/18 06/28/19 History Methotrexate Sodium [Methotrexate] 10 mg PO MO 11/16/18 06/28/19 History Nitroglycerin Sl Tabs [Nitrostat] 0.4 mg SUBLINGUAL Q5M PRN 11/16/18 06/28/19 History Simvastatin [Zocor] 40 mg PO HS 11/16/18 06/28/19 History hydrOXYzine HCL [Atarax] 25 mg PO DAILY PRN 11/16/18 06/28/19 History SILVER sulfADIAZINE Cream 1 applic TOPICAL DAILY #85 gram 05/31/19 06/28/19 Rx [Silvadene 1% Cream] Allergies Allergy/AdvReac Type Severity Reaction Status Date / Time No Known Allergies Allergy Verified 06/28/19 07:43 Physical Exam Vitals: Vital Signs Temp Pulse Pulse Resp BP BP Pulse Ox 06/28/19 07:13 78 17 06/28/19 07:11 98.6 F 78 17 168/73 96 06/28/19 05:31 98.6 F 78 17 168/73 96 06/28/19 03:14 98 F 65 18 166/79 100 06/28/19 01:22 97.7 F 86 20 171/78 100 Intake and Output 06/27/19 06/28/19 06/28/19 22:59 06:59 14:59 Other: Voiding Method Toilet # Voids 1 Weight 86.137 kg PHYSICAL EXAMINATION: GENERAL: 79-year-old gentleman in no acute distress at the time of my examination HEENT: Head is atraumatic, normocephalic. Pupils equal, round. Sclera anicteric. Conjunctiva are clear. Mucous membranes of the mouth are moist. Neck is supple. There is no elevated jugular venous pressure. No carotid bruit is heard. HEART EXAMINATION: Heart S1, S2 normal. No murmur or gallop heard. CHEST EXAMINATION: Lungs reveal diminished air entry to the left posteriorly . ABDOMEN: Soft, nontender. Bowel sounds are heard. No organomegaly noted. EXTREMITIES: 2+ peripheral pulses with no evidence of peripheral edema and no calf tenderness noted. NEUROLOGIC patient is awake, alert and oriented 3 . . Results 06/28/19 01:38 06/28/19 01:38 Cardiac Enzymes 06/28/19 06/28/19 Range/Units 01:38 01:38 AST 30 (17-59) U/L Troponin I <0.012 (0.000-0.034) ng/mL Coagulation 06/28/19 Range/Units 01:38 PT 10.9 (9.0-12.0) sec APTT 24.9 (22.0-30.0) sec CBC 06/28/19 Range/Units 01:38 WBC 5.9 (3.8-10.6) k/uL RBC 3.78 L (4.30-5.90) m/uL Hgb 11.6 L (13.0-17.5) gm/dL Hct 34.7 L (39.0-53.0) % Plt Count 163 (150-450) k/uL Comprehensive Metabolic Panel 06/28/19 Range/Units 01:38 Sodium 140 (137-145) mmol/L Potassium 4.0 (3.5-5.1) mmol/L Chloride 107 (98-107) mmol/L Carbon Dioxide 27 (22-30) mmol/L BUN 31 H (9-20) mg/dL Creatinine 1.09 (0.66-1.25) mg/dL Glucose 138 H (74-99) mg/dL Calcium 8.9 (8.4-10.2) mg/dL AST 30 (17-59) U/L ALT 26 (21-72) U/L Alkaline Phosphatase 80 (38-126) U/L Total Protein 6.5 (6.3-8.2) g/dL Albumin 3.5 (3.5-5.0) g/dL Current Medications Generic Name Dose Route Start Last Admin Trade Name Freq PRN Reason Stop Dose Admin Morphine Sulfate 4 mg 06/28/19 03:22 Morphine Sulfate (Inj) IV Q4HR PRN Severe Pain Naloxone HCl 0.2 mg 06/28/19 03:13 Narcan IV Q2M PRN Opioid Reversal Ondansetron HCl 4 mg 06/28/19 03:22 Zofran IVP Q8HR PRN Nausea And Vomiting Intake and Output 06/27/19 06/28/19 06/28/19 22:59 06:59 14:59 Other: Voiding Method Toilet # Voids 1 Weight 86.137 kg 06/28/19 01:38 06/28/19 01:38 EKG Interpretations (text) EKG shows a normal sinus rhythm with no acute changes. Assessment and Plan Plan: Assessment and plan #1 chest pain, rule out acute coronary syndrome. Initial troponin is negative. Initial EKG shows normal sinus rhythm with no acute changes. #2 known history of coronary artery disease with prior three-vessel CABG in and in 2009. Most recent cardiac catheterization was performed in January of this year which revealed a patent graft to the LAD, OM branch to the right coronary artery, total occlusion of the vein graft to the PLV branch of the RCA. Diffuse disease involving the comanche vessels including the diagonal and OM branches and also significant lesion in the left main. It was felt at that time that the vessels were small and probably not suitable for intervention and medical therapy was advised at that time. #3 peripheral vascular disease with prior right iliofemoral and fem-pop bypass #4 hypertension #5 hyperlipidemia Plan We will obtain a repeat EKG this morning, obtain echocardiogram with Doppler study. The patient has not been initiated on aspirin, he is not on heparin, and none of his home medications of yet been resumed. We will give the patient an aspirin, resume his statin, beta adriano, and initiate IV heparin. Further recommendations to follow. DNP note has been reviewed, I agree with a documented findings and plan of care. Patient was seen and examined.
[2019-06-28] MEDS ORDERED: HEPARIN SOD,PORK IN 0.45% NACL 25,000 UNIT in 0.45% NACL 1 250ML.BAG IV SCH (08:15)
[2019-06-28 08:43] LABS: Anisocytosis Slight; Basophils % (A) 0 %; Eosinophils # (A) 0.2 k/uL (0-0.7); Eosinophils % (A) 3 %; HCT 36.4 % (39.0-53.0); HGB 12.1 gm/dL (13.0-17.5); Lymphocytes # (A) 1.1 k/uL (1.0-4.8); Lymphocytes % (A) 18 %; MCH 30.9 pg (25.0-35.0); MCHC 33.3 g/dL (31.0-37.0); MCV 92.9 fL (80.0-100.0); Mean Platelet Volume 6.9; Monocytes # (A) 0.4 k/uL (0-1.0); Monocytes % (A) 7 %; Neutrophils # (A) 4.3 k/uL (1.3-7.7); Neutrophils % (A) 72 %; Platelet Count 167 k/uL (150-450); RBC 3.92 m/uL (4.30-5.90); RDW 16.3 % (11.5-15.5)
[2019-06-28 08:48] LABS: Albumin 3.6 g/dL (3.5-5.0); Calcium 8.9 mg/dL (8.4-10.2); Potassium 4.6 mmol/L (3.5-5.1); Total Bilirubin 0.5 mg/dL (0.2-1.3); Total Protein 6.7 g/dL (6.3-8.2)
[2019-06-28] MEDS: ATENOLOL 50 MG TAB PO SCH (09:19)
--- NOTE | 2019-06-28 09:37 | P.HPIM ---
History of Present Illness H&P Date: 06/28/19 This is a 79-year-old male patient of Dr. Echeverria. Patient presented with complaints of chest pain. Patient reports that he started to experience some chest pain after mowing the lawn yesterday but pain subsided and he went to sleep. Patient states he woke up around midnight with strong pressure-like pain in the middle of his chest. Patient presented to the ER for further evaluation. Patient has known past medical history of coronary artery disease with coronary artery bypass graft surgery in 2009. Patient underwent cardiac cath in January 2019 which revealed a patent graft to LAD, OM branch and the right coronary artery. Total occlusion of the vein graft to the PLV branch of the RCA, diffuse disease involving the red devil vessels including diagonal and OM at that time no intervention for medical management was implemented. Additional medical history includes lung cancer positive for metastatic melanoma in which she underwent left upper lobe lobectomy in February 2019. Additional medical history includes hypertension, hyperlipidemia, peripheral vascular disease, prostate cancer and m elanoma. Chest x-ray completed showing similar moderate partially loculated left pleural effusion. EKG completed showing normal sinus rhythm with sinus arrhythmia. Troponins 0.012 and 0.026. Cardiology services have been consulted. Patient started on heparin drip. 2-D echo has been ordered. At this time patient denies chest pain or shortness of breath. Patient denies nausea vomiting or diarrhea. Patient denies any urinary burning or frequency Review of Systems Please refer to HPI otherwise unremarkable Past Medical History Past Medical History: Coronary Artery Disease (CAD), Cancer, Hyperlipidemia, Hypertension, Osteoarthritis (OA), Prostate Disorder Additional Past Medical History / Comment(s): prostate CA-radiation seeds implant , dx- lung mass dec 2018 with a lobectomy, back pain, hx melanoma, Wart (virus) removal sacrum and left groin May 2019, bladder cancer 2013 with scraping History of Any Multi-Drug Resistant Organisms: MRSA Date of last positivie culture/infection: 2007 MDRO Source:: R groin surgical site-had wound vac Past Surgical History: Appendectomy, Coronary Bypass/CABG, Heart Catheterization, Hernia Repair, Prostate Surgery, Tonsillectomy Additional Past Surgical History / Comment(s): Fem Pop bypass R groin x2. L shoulder surgery,prostatectomy,CABG x2-triple bypass each time-last CABG 2009, surgery for melanoma x3, recent cardiac cath. Past Anesthesia/Blood Transfusion Reactions: No Reported Reaction Additional Past Anesthesia/Blood Transfusion Reaction / Comment(s): no hx p roblems with prior blood transfusion Past Psychological History: No Psychological Hx Reported Smoking Status: Former smoker Past Alcohol Use History: None Reported Additional Past Alcohol Use History / Comment(s): Quit 1987,smoked approx 30yrs, 1ppd Past Drug Use History: None Reported - Past Family History Mother Family Medical History: Cancer Additional Family Medical History / Comment(s): Liver Sister(s) Family Medical History: Cancer Additional Family Medical History / Comment(s): brain Medications and Allergies Home Medications Medication Instructions Recorded Confirmed Type Atenolol [Tenormin] 50 mg PO DAILY 04/11/18 06/28/19 History Cholecalciferol [Vitamin D3] 400 unit PO DAILY 04/11/18 06/28/19 History Folic Acid 1 mg PO DAILY 04/11/18 06/28/19 History Isosorbide Mononitrate ER [Imdur] 30 mg PO DAILY@1200 04/11/18 06/28/19 History Methotrexate Sodium [Methotrexate] 10 mg PO MO 11/16/18 06/28/19 History Nitroglycerin Sl Tabs [Nitrostat] 0.4 mg SUBLINGUAL Q5M PRN 11/16/18 06/28/19 History Simvastatin [Zocor] 40 mg PO HS 11/16/18 06/28/19 History hydrOXYzine HCL [Atarax] 25 mg PO DAILY PRN 11/16/18 06/28/19 History SILVER sulfADIAZINE Cream 1 applic TOPICAL DAILY #85 gram 05/31/19 06/28/19 Rx [Silvadene 1% Cream] Allergies Allergy/AdvReac Type Severity Reaction Status Date / Time No Known Allergies Allergy Verified 06/28/19 07:43 Physical Exam Vitals: Vital Signs Temp Pulse Pulse Resp BP BP BP 06/28/19 08:00 98.2 F 69 20 158/67 06/28/19 07:13 78 17 06/28/19 07:11 98.6 F 78 17 168/73 06/28/19 05:31 98.6 F 78 17 168/73 06/28/19 03:14 98 F 65 18 166/79 06/28/19 01:22 97.7 F 86 20 171/78 Pulse Ox 06/28/19 08:00 96 06/28/19 07:13 06/28/19 07:11 96 06/28/19 05:31 96 06/28/19 03:14 100 06/28/19 01:22 100 Intake and Output 06/27/19 06/28/19 06/28/19 22:59 06:59 14:59 Other: Voiding Method Toilet # Voids 1 Weight 86.137 kg Head normocephalic Neck supple Lungs clear to auscultation bilaterally no wheezing or crackles Heart regular rate and rhythm S1-S2, no rub or gallop Abdomen is soft nontender nondistended positive bowel sounds no hepatosplenomegaly Extremities no edema Neuro alert and orientated to 3 Results CBC & Chem 7: 06/28/19 07:21 06/28/19 07:21 Labs: Abnormal Lab Results - Last 24 Hours (Table) 06/28/19 06/28/19 06/28/19 Range/Units 01:38 01:38 07:21 RBC 3.78 L 3.92 L (4.30-5.90) m/uL Hgb 11.6 L 12.1 L (13.0-17.5) gm/dL Hct 34.7 L 36.4 L (39.0-53.0) % RDW 17.6 H 16.3 H (11.5-15.5) % Chloride (98-107) mmol/L BUN 31 H (9-20) mg/dL Glucose 138 H (74-99) mg/dL 06/28/19 Range/Units 07:21 RBC (4.30-5.90) m/uL Hgb (13.0-17.5) gm/dL Hct (39.0-53.0) % RDW (11.5-15.5) % Chloride 109 H (98-107) mmol/L BUN 27 H (9-20) mg/dL Glucose 106 H (74-99) mg/dL Thrombosis Risk Factor Assmnt - Choose All That Apply Any of the Below Risk Factors Present?: Yes Each Factor Represents 1 point: Obesity (BMI >25) Other Risk Factors: Yes Each Risk Factor Represents 3 Points: Positive Factor V Leiden Other congenital or acquired thrombophilia - If yes, enter type in comment: No Thrombosis Risk Factor Assessment Total Risk Factor Score: 4 Thrombosis Risk Factor Assessment Level: Moderate Risk Assessment and Plan Assessment: 1. Chest pain. Troponin 0.012 and 0.026. Chest x-ray completed showing similar moderate partially loculated left pleural effusion. Cardiology services have been consulted. Patient started on heparin drip. 2-D echo has been ordered 2. History of known coronary artery disease with coronary artery bypass graft surgery in 2009. Patient recently underwent cardiac cath in January 2019 which revealed a patent graft to the LAD, OM branch and RCA. Total occlusion of the vein graft to PLV branch of the RCA, diffuse disease involving the red devil vessels including the diagonal and branches at the time is decided to pursue medical management. 3. History of left upper lobectomy February 2019 for left lung mass 4. History of malignant melanoma 5. 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 Patient followed with Dr. moreno 6. History of hyperlipidemia. Maintained on statin 7. History of essential hypertension 8. History of prostate cancer in which he received radiation seeds implanted stated in 1989 9. Ex-smoker
[2019-06-28] MEDS: ISOSORBIDE MONONITRATE ER 60 MG TAB.ER.24H PO SCH (10:12)
--- NOTE | 2019-06-28 11:27 | ECHOF ---
Referral Reason:chest pain MEASUREMENTS -------- HEIGHT: 177.8 cm WEIGHT: 85.7 kg BP: 136/70 RVIDd: 3.9 cm (< 3.3) IVSd: 1.4 cm (0.6 - 1.1) LVIDd: 4.7 cm (3.9 - 5.3) LVPWd: 1.7 cm (0.6 - 1.1) IVSs: 1.6 cm LVIDs: 3.2 cm LVPWs: 1.7 cm LAESV Index (A-L): 30.51 ml/m Ao Diam: 3.3 cm (2.0 - 3.7) AV Cusp: 1.5 cm (1.5 - 2.6) LA Diam: 3.9 cm (2.7 - 3.8) EPSS: 0.7 cm MV E Lawrence: 0.68 m/s MV DecT: 321 ms MV A Lawrence: 0.81 m/s MV E/A Ratio: 0.84 AV maxP.32 mmHg AV meanP.24 mmHg RAP: 5.00 mmHg RVSP: 42.50 mmHg MV EF SLOPE: 80.48 mm/s (70 - 150) MV EXCURSION: 1.56 cm (> 18.000) FINDINGS -------- Sinus rhythm. This was a technically difficult study with suboptimal apical views. The left ventricular size is normal. There is moderate concentric left ventricular hypertrophy. O verall left ventricular systolic function is low-normal with, an EF between 50 - 55 %. Septal wall motion is delayed and consistent with prior cardiac surgery. The right ventricle is moderately enlarged. Left atrium is mildly dilated by volume. The right atrium was not well visualized. Lumason used Interatrial and interventricular septum intact. Aortic valve is trileaflet and is severely thickened. There is no evidence of aortic regurgitation. There is moderate aortic stenosis present. Peak/mean gradient across the valve is 35.32mmHg / 20 .24mmHg. Mild mitral annular calcification present. Mild mitral regurgitation is present. Moderate tricuspid regurgitation present. There is moderate pulmonary hypertension. The right susy tricular systolic pressure, as measured by Doppler, is 42.50mmHg. Trace/mild (physiologic) pulmonic regurgitation. The aortic root size is normal. IVC not well visualized There is no pericardial effusion. CONCLUSIONS -------- 1. Sinus rhythm. 2. This was a technically difficult study with suboptimal apical views. 3. The left ventricular size is normal. 4. There is moderate concentric left ventricular hypertrophy. 5. Overall left ventricular systolic function is low-normal with, an EF between 50 - 55 %. 6. Septal wall motion is delayed and consistent with prior cardiac surgery. 7. The right ventricle is moderately enlarged. 8. Left atrium is mildly dilated by volume. 9. The right atrium was not well visualized. 10. Lumason used 11. Interatrial and interventricular septum intact. 12. Aortic valve is trileaflet and is severely thickened. 13. There is no evidence of aortic regurgitation. 14. There is moderate aortic stenosis present. 15. Peak/mean gradient across the valve is 35.32mmHg / 20.24mmHg. 16. Mild mitral annular calcification present. 17. Mild mitral regurgitation is present. 18. Moderate tricuspid regurgitation present. 19. There is moderate pulmonary hypertension. 20. The right ventricular systolic pressure, as measured by Doppler, is 42.50mmHg. 21. Trace/mild (physiologic) pulmonic regurgitation. 22. The aortic root size is normal. 23. IVC not well visualized 24. There is no pericardial effusion. COMMUNITY DEVELOPMENT TECHNICIAN: Cata Hassan RDCS
[2019-06-28] MEDS: CHOLECALCIFEROL 400 UNIT TAB PO SCH (16:01)
--- NOTE | 2019-06-28 20:08 | CT ---
EXAMINATION TYPE: CT chest wo con DATE OF EXAM: 06/28/2019 COMPARISON: 05/15/2019 HISTORY: Pleural effusions. CT DLP: 435.1 mGycm. Automated Exposure Control for Dose Reduction was Utilized. TECHNIQUE: CT scan of the thorax is performed without IV contrast. FINDINGS: There is a moderate-sized left pleural effusion. There is dense coronary artery calcification. There is coarse interstitial reticular infiltrate in the periphery of both lungs. There is no pericardial e ffusion. There are few paratracheal lymph nodes that measure up to 1 cm. Thoracic aorta is atheromato us. There is no aneurysm. There are no hilar masses. There is spurring in the thoracic spine. I see n o bony destructive process. There is no compression fracture. There are sternal wires. Spleen measure s 14 cm. IMPRESSION: Pulmonary interstitial fibrosis. Moderate left pleural effusion. Chest not significantly different than last exam. Mild splenomegaly. Nonspecific mediastinal lymph nodes unchanged.
[2019-06-28] MEDS ORDERED: ATORVASTATIN 40 MG TAB PO SCH (21:00)
[2019-06-28] MEDS ORDERED: ATORVASTATIN 20 MG TAB PO SCH (21:00)
[2019-06-29 06:32] LABS: Anisocytosis Slight; Basophils % (A) 0 %; Eosinophils # (A) 0.2 k/uL (0-0.7); Eosinophils % (A) 4 %; HCT 36.3 % (39.0-53.0); HGB 12.1 gm/dL (13.0-17.5); Lymphocytes % (A) 16 %; MCHC 33.4 g/dL (31.0-37.0); MCV 92.9 fL (80.0-100.0); Monocytes # (A) 0.3 k/uL (0-1.0); Monocytes % (A) 4 %; Neutrophils # (A) 4.8 k/uL (1.3-7.7); Neutrophils % (A) 74 %; Platelet Count 171 k/uL (150-450); RBC 3.91 m/uL (4.30-5.90); RDW 16.2 % (11.5-15.5); WBC 6.5 k/uL (3.8-10.6)
[2019-06-29 06:37] LABS: Albumin 3.5 g/dL (3.5-5.0); Calcium 8.7 mg/dL (8.4-10.2); Potassium 4.6 mmol/L (3.5-5.1); Total Bilirubin 0.6 mg/dL (0.2-1.3); Total Protein 6.7 g/dL (6.3-8.2)
[2019-06-29 08:26] VITALS: BP 149/67; PULSE 71; RESP 22; TEMP 97.8
[2019-06-29] MEDS: CHOLECALCIFEROL 400 UNIT TAB PO SCH (08:58)
[2019-06-29] MEDS: ISOSORBIDE MONONITRATE ER 60 MG TAB.ER.24H PO SCH (08:58)
[2019-06-29] MEDS: ATENOLOL 50 MG TAB PO SCH (08:58)
[2019-06-29] MEDS ORDERED: ASPIRIN 81 MG PO SCH (09:00)
[2019-06-29] MEDS ORDERED: FAMOTIDINE 20 MG TAB PO SCH (09:00)
--- NOTE | 2019-06-29 10:36 | CONS ---
CONSULTATION Kailash Cee is a 79-year-old male who presented to the ER at [facility] with increasing shortness of breath. He had been cutting and mowing his grass. He had a mask on. Subsequently developed some cough and shortness of breath. He came to the ER and subsequently was seen and admitted as he continued to have shortness of breath. He denies any fever, chills or rigors and had crushing substernal chest pain that awoken him. PAST MEDICAL HISTORY: Past medical history is positive for melanoma, history of a lung nodule for which he had left upper lobectomy which apparently showed melanoma. He has a chronic left-sided pleural effusion, history of coronary artery disease, prostate cancer, coronary artery bypass, peripheral vascular disease. FAMILY HISTORY: Family history is positive for liver cancer in his mother; brain cancer in his father. SOCIAL HISTORY: Patient is a former smoker. Does not drink alcohol excessively and did not work with asbestos. MEDICATIONS: His medications prior to admission were methotrexate, hydroxyzine, Zocor, Silvadene, Nitrostat, Imdur, folic acid, cholecalciferol, and atenolol. PHYSICAL EXAMINATION: On physical examination, he is lying in bed. He is in no respiratory distress. He is in his usual state as far as breathing is concerned. Respiratory rate is 20, pulse rate of 58, temperature 97.9, blood pressure 129/58, O2 saturation on 2 L by nasal cannula is 96%. HEENT reveals pupils are equal. Chest reveals decreased breath sounds with dullness to percussion on the left lower hemithorax. Cardiovascular system reveals an S1, S2. No S3, no S4. Abdomen is soft. There is trace pedal edema. LABS: Labs reveal a white count of 6, hemoglobin of 12.1, sodium 143, potassium 4.6, chloride 109, bicarb 26, BUN 27, creatinine 1.01. Chest CT shows evidence of a left-sided pleural effusion with some interstitial changes as well bilaterally. The left-sided pleural effusion is similar to a pleural effusion seen on 05/15/2019. IMPRESSION AT THIS TIME: Left-sided pleural effusion which is chronic and may be related to the fact that he has had a left upper lobectomy and has a history of heart disease. As he is relatively asymptomatic at this time and is back to his usual state as far as shortness of breath goes, we will watch this as it has been watched in the past and is not worse. His current medications were reviewed. There is no plan for thoracentesis at this time. This was discussed with the patient and he understands our recommendation. I would like to thank you for allowing me to participate in his care. LEANNA / OLIVER: [id number] /
--- NOTE | 2019-06-29 11:56 | P.DS ---
Providers Date of admission: 06/28/19 14:01 Expected date of discharge: 06/29/19 Attending physician: Elton Fuller Consults: 06/28/19 03:26 Consult Physician Routine Consulting Provider: Armani Tan Consult Reason/Comments: chest pain Do you want consulting provider notified?: Yes 06/28/19 14:01 Consult Physician Routine Consulting Provider: Suresh Tran Consult Reason/Comments: left pleural effusion Do you want consulting provider notified?: Yes Primary care physician: Ben Echeverria Hospital Course: Discharge diagnosis 1. Chest pain. Troponin 0.012 and 0.026. Chest x-ray completed showing similar moderate partially loculated left pleural effusion. Cardiology services have been consulted. Patient started on heparin drip. 2-D echo completed showing EF of 50-55%. Heparin drip DC'd. Patient has been cleared for discharge from cardiology standpoint. Imdur increased to 60 2. History of known coronary artery disease with coronary artery bypass graft surgery in 2009. Patient recently underwent cardiac cath in January 2019 which revealed a patent graft to the LAD, OM branch and RCA. Total occlusion of the vein graft to PLV branch of the RCA, diffuse disease involving the [place] vessels including the diagonal and branches at the time is decided to pursue medical management. 3. History of left upper lobectomy February 2019 for left lung mass 4. History of malignant melanoma 5. 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 Patient followed with Dr. moreno 6. History of hyperlipidemia. Maintained on statin 7. History of essential hypertension 8. History of prostate cancer in which he received radiation seeds implanted stated in 1989 9. Ex-smoker 10. Left-sided pleural effusion. Nares services have been consulted per pulmonary this does appear chronic and may be related fact that he has a left upper lobectomy and a history of heart disease. Patient will be continued to be followed outpatient. No plans for thoracentesis at this time. Patient has been cleared by pulmonary services. Hospital course This is a 79-year-old male patient of Dr. Echeverria. Patient presented with complaints of chest pain. Patient reports that he started to experience some chest pain after mowing the lawn yesterday but pain subsided and he went to sleep. Patient states he woke up around midnight with strong pressure-like pain in the middle of his chest. Patient presented to the ER for further evaluation. Patient has known past medical history of coronary artery disease with coronary artery bypass graft surgery in 2009. Patient underwent cardiac cath in January 2019 which revealed a patent graft to LAD, OM branch and the right coronary artery. Total occlusion of the vein graft to the PLV branch of the RCA, diffuse disease involving the [place] vessels including diagonal and OM at that time no intervention for medical management was implemented. Additional medical history includes lung cancer positive for metastatic melanoma in which she underwent left upper lobe lobectomy in February 2019. Additional medical history includes hypertension, hyperlipidemia, peripheral vascular disease, prostate cancer and melanoma. Chest x-ray completed showing similar moderate partially loculated left pleural effusion. EKG completed showing normal sinus rhythm with sinus arr hythmia. Troponins 0.012 and 0.026. Cardiology services have been consulted. Patient started on heparin drip. 2-D echo has been ordered. At this time patient denies chest pain or shortness of breath. Patient denies nausea vomiting or diarrhea. Patient denies any urinary burning or frequency On 06/29/2019 patient's alert and oriented 3. Patient was evaluated by pulmonary services for left pleural effusion no further workup at this time CT was completed and reviewed per pulmonary will follow up outpatient for further management. Patient also cleared by cardiology services for discharge Imdur increased. Patient very eager to go home. At this time patient denies chest pain or shortness breath. Patient denies nausea vomiting or diarrhea. Patient denies any urinary burning or frequency. I performed an examination of the patient and discussed their management with the Nurse Practitioner. I have reviewed the Nurse Practitioner's notes and agree with the documented findings and plan of care Patient Condition at Discharge: Stable Plan - Discharge Summary Discharge Rx Participant: No New Discharge Prescriptions: New Aspirin 81 mg PO DAILY 30 Days #30 chew Isosorbide Mononitrate ER [Imdur] 60 mg PO DAILY 30 Days #30 tab.er.24h Continue Cholecalciferol [Vitamin D3] 400 unit PO DAILY Folic Acid 1 mg PO DAILY Atenolol [Tenormin] 50 mg PO DAILY hydrOXYzine HCL [Atarax] 25 mg PO DAILY PRN PRN Reason: Anxiety Nitroglycerin Sl Tabs [Nitrostat] 0.4 mg SUBLINGUAL Q5M PRN PRN Reason: Chest Pain Methotrexate Sodium [Methotrexate] 10 mg PO MO Simvastatin [Zocor] 40 mg PO HS SILVER sulfADIAZINE Cream [Silvadene 1% Cream] 1 applic TOPICAL DAILY #85 gram Discontinued Isosorbide Mononitrate ER [Imdur] 30 mg PO DAILY@1200 Discharge Medication List Atenolol [Tenormin] 50 mg PO DAILY 04/11/18 [History] Cholecalciferol [Vitamin D3] 400 unit PO DAILY 04/11/18 [History] Folic Acid 1 mg PO DAILY 04/11/18 [History] Methotrexate Sodium [Methotrexate] 10 mg PO MO 11/16/18 [History] Nitroglycerin Sl Tabs [Nitrostat] 0.4 mg SUBLINGUAL Q5M PRN 11/16/18 [History] Simvastatin [Zocor] 40 mg PO HS 11/16/18 [History] hydrOXYzine HCL [Atarax] 25 mg PO DAILY PRN 11/16/18 [History] SILVER sulfADIAZINE Cream [Silvadene 1% Cream] 1 applic TOPICAL DAILY #85 gram 05/31/19 [Rx] Aspirin 81 mg PO DAILY 30 Days #30 chew 06/29/19 [Rx] Isosorbide Mononitrate ER [Imdur] 60 mg PO DAILY 30 Days #30 tab.er.24h 06/29/19 [Rx] Follow up Appointment(s)/Referral(s): Armani Tan MD [STAFF PHYSICIAN] - 1 Week (TuesdayJuly 06 at 3:45 pm) Suresh Tran MD [STAFF PHYSICIAN] - 07/02/19 2:45 pm ([facility]) Ben Echeverria MD [Primary Care Provider] - 1-2 days Patient Instructions/Handouts: Angina (DC), Pleural Effusion (DC) Activity/Diet/Wound Care/Special Instructions: Activity as tolerated Diet heart healthy Discharge Disposition: HOME SELF-CARE
--- NOTE | 2019-06-29 13:48 | PN ---
PROGRESS NOTE Mr. Cee is a 79-year-old male with a known history of coronary artery disease, status post coronary artery bypass grafting who presented with symptoms of chest discomfort. His cardiac enzymes are negative. He had no further symptoms since his admission. He is ambulating without difficulty. Denying any chest pain. No dizziness. No palpitation. He had underwent an echocardiogram that revealed an ejection fraction 50% to 55% with moderate aortic stenosis. He continues to be on aspirin once a day, Tenormin 50 mg daily, isosorbide mononitrate 60 mg daily. PHYSICAL EXAMINATION: Blood pressure 125/60 with the heart rate in 70s. LUNGS: Clear. HEART: Regular rate and rhythm. S1, S2. No S3 with systolic ejection murmur. No diastolic murmur. No rub. ABDOMEN: Soft, nontender. EXTREMITIES: No edema. IMPRESSION: 1. Coronary artery disease, status post coronary artery bypass grafting with symptoms of chest discomfort, stable. No evidence for acute myocardial infarction. 2. Hypertension. 3. Mild to moderate aortic stenosis. 4. Hyperlipidemia. RECOMMENDATION: Patient should be able to be discharged home today and follow as an outpatient with Dr. Tan. MMODL / IJN: [id number] /
--- NOTE | 2019-07-02 09:33 | CDI ---
Documentation Clarification Form Date: 07/02/2019 From: Alanna Hernandez Phone: If questions call Mary Gamez @ [phone], Hours-8:30 am & 5 pm M- F Admit Date: 06/28/2019 2:01:00 PM Patient Name: Kailash Cee Visit Number: [id number] Discharge Date: 06/29/2019 1:57:00 PM ATTENTION: The Clinical Documentation Specialists (CDI) and [facility] Coding Staff appreciate your assistance in clarifying documentation. Please respond to the clarification below the line at the bottom and electronically sign. The CDI & [facility] Coding staff will review the response and follow-up if needed. Please note: Queries are made part of the Legal Health Record. If you have any questions, please contact the author of this message via ITS. Dr. Elton Fuller Chest pain is documented in the ED Note, H&P, PN & DS. History/Risk factors: known hx of CAD w CABG, total occlusion of vein graft to PLV branch of the RCA, left pleural effusion s/p lobectomy Clinical Indicators: EKG shows normal sinus rhythm w no acute changes Labs: Troponin 0.012 & 0.26 Treatment: ASA 81 mg pos daily, Imdur 60 mg po daily Consults: Cardiology & pulmonary In your professional opinion, can please clarify if the chest pain signifies, or is due to: CAD of [place] arteries with angina (specify vessel and type of angina if known) CAD of CABG venous graft with angina (specify type of angina if known) Chest wall pain Pleural effusion Other condition, please specify Unable to determine unable to determine. per cardiology no evidence fro acute myocardial infarction MTDD
== END 2019-06-29 13:57 | disposition home or self-care (01) | DRG 313 ==
LOC: EC 01:10 → 3SCARD 04:15 → OBSVTOIN 14:01
PROVIDERS: ADMIT Internal Medicine; ATTEND Internal Medicine
DX: R07.9 Chest pain, unspecified (principal); J90 Pleural effusion, not elsewhere classified; I25.810 Atherosclerosis of coronary artery bypass graft(s) without angina pectoris; I25.82 Chronic total occlusion of coronary artery; I35.0 Nonrheumatic aortic (valve) stenosis; I25.10 Atherosclerotic heart disease of native coronary artery without angina pectoris; E78.5 Hyperlipidemia, unspecified; I10 Essential (primary) hypertension; M19.90 Unspecified osteoarthritis, unspecified site; N42.9 Disorder of prostate, unspecified; M54.9 Dorsalgia, unspecified; I73.9 Peripheral vascular disease, unspecified; Z79.899 Other long term (current) drug therapy; Z90.2 Acquired absence of lung [part of]; Z95.1 Presence of aortocoronary bypass graft; Z85.820 Personal history of malignant melanoma of skin; Z86.19 Personal history of other infectious and parasitic diseases; Z85.46 Personal history of malignant neoplasm of prostate; Z92.3 Personal history of irradiation; Z87.891 Personal history of nicotine dependence; Z85.118 Personal history of other malignant neoplasm of bronchus and lung; Z86.14 Personal history of Methicillin resistant Staphylococcus aureus infection; Z80.0 Family history of malignant neoplasm of digestive organs; Z80.8 Family history of malignant neoplasm of other organs or systems; Z85.51 Personal history of malignant neoplasm of bladder
CPT/HCPCS: 36415; 71046; 71250; 80053; 83690; 83735; 84484; 85025; 85610; 85730; 93005; 93306; 99285

== ENCOUNTER → 2019-10-09 | Outpatient (CLI) | payer MEDICARE ==
--- NOTE | 2019-10-09 11:55 | CT ---
EXAMINATION TYPE: CT ChestAbdPelvis w con DATE OF EXAM: 10/09/2019 COMPARISON: Chest 06/28/[address] body 05/15/2019. PET/CT 11/28/2018 HISTORY: 79-year-old male Melanoma TECHNIQUE: Contiguous axial scanning of the chest, abdomen, and pelvis performed with IV Contrast, pa tient injected with 100 mL of Isovue 300. Delayed images through the kidneys were obtained. Coronal/s agittal reconstructions performed. CT DLP: 1247.8 mGycm Automated exposure control for dose reduction was used. FINDINGS: CHEST: Median sternotomy wires are present. Heart upper limits of normal size without pericardial effusion. Post-CABG changes are present. Ascending aorta normal caliber. Moderate atherosclerotic arch calcifications with conventional large vessel branching anatomy. Ectatic upper descending thoracic aorta 3.4 cm. Borderline to mildly enlarged caliber to the main right pulmonary arteries and 2.5 and 2.9 cm, respec tively, suggesting underlying pulmonary arterial hypertension. Mediastinal lymph nodes are overall unchanged measuring up to 8 mm paratracheal region and 1.1 cm sub carinal region. However, an enlarging 9 mm left hilar lymph node is noted now. Subpleural interstitial changes especially in the mid and lower lungs as well as background of mild t o moderate centrilobular emphysema is redemonstrated. Patient is status post left upper lobectomy with residual small left pleural effusion, further decrea sed in size from March 28, 2019. There is a 1.2 cm left midlung pulmonary nodule. In retrospect, this measured 5 mm on 05/15/2019. ABDOMEN: Tiny hiatal hernia. No focal liver lesion or biliary ductal dilatation. Portal venous system is patent. Gallbladder, adrenal glands, right kidney, and pancreas appear within normal limits. Small 1.1 cm cys t lateral upper pole left kidney. Spleen mildly enlarged at 14.4 cm. Ventral abdominal wall mesh repair. Moderate atherosclerotic changes infrarenal abdominal aorta and iliac arteries. Ectatic infrarenal ab dominal aorta at 2.7 cm. Mildly ectatic right common iliac artery of 1.6 cm with focal moderate metas tatic narrowing proximal right common iliac artery. No dilated small bowel, free fluid, or free air. Scattered nonenlarged mesenteric lymph nodes are pre sent. Moderate stool burden. Sigmoid diverticulosis. Redundant sigmoid colon. No pericolonic inflammatory c hange. PELVIS: Bladder under distended. Multiple surgical clips in the pelvis likely relating to prior prostatectomy and lymph node dissection. Stable soft tissue thickening within the right inguinal region suggesting postsurgical change. No pro gressive pelvic lymphadenopathy as compared to 05/15/2019. BONES: Mild degenerative changes at the hips. Facet arthropathy mid to lower lumbar spine. Cervical spondylo sis visualized lower cervical spine. Degenerative changes right sternoclavicular joint. Grade 1 anter olisthesis of L3-L4. No osseous destructive process seen. IMPRESSION: 1. BACKGROUND OF COPD AND INTERSTITIAL FIBROSIS. PULMONARY ARTERIAL HYPERTENSION. STATUS POST LEFT UP PER LOBECTOMY. 2. AN ENLARGING LEFT MIDLUNG PULMONARY NODULE MEASURING 1.2 CM. IN RETROSPECT, THIS WAS VERY SMALL AT 5 MM ON 05/15/2019. FINDINGS VERY SUSPICIOUS FOR METASTATIC DISEASE. 3. ENLARGING LEFT HILAR LYMPH NODE AT 9 MM . THIS COULD BE REACTIVE OR COULD REPRESENT METASTATIC DIS EASE. CLOSE FOLLOW-UP RECOMMENDED. 4. POSTOPERATIVE CHANGES OF PROSTATECTOMY AND PELVIC LYMPH NODE DISSECTION. 5. STABLE MILD SPLENOMEGALY AT 14.4 CM. SIGMOID DIVERTICULOSIS WITHOUT ACUTE DIVERTICULITIS.
== END | disposition home or self-care (01) ==
LOC: RADCTMAIN 08:54
PROVIDERS: ATTEND Internal Medicine Hematology & Oncology
DX: J44.9 Chronic obstructive pulmonary disease, unspecified (principal); J84.10 Pulmonary fibrosis, unspecified; I27.21 Secondary pulmonary arterial hypertension; K57.30 Diverticulosis of large intestine without perforation or abscess without bleeding; R91.1 Solitary pulmonary nodule; R59.9 Enlarged lymph nodes, unspecified; R16.1 Splenomegaly, not elsewhere classified; C43.61 Malignant melanoma of right upper limb, including shoulder; Z90.2 Acquired absence of lung [part of]; Z90.79 Acquired absence of other genital organ(s); Z90.89 Acquired absence of other organs; Z98.890 Other specified postprocedural states
CPT/HCPCS: 71260; 74177; 82565; 84520

== ENCOUNTER → 2019-11-23 | Outpatient (CLI) | payer MEDICARE ==
--- NOTE | 2019-11-23 08:36 | MR ---
EXAMINATION TYPE: MR brain wo/w con DATE OF EXAM: 11/23/2019 COMPARISON: 05/15/2019 HISTORY: Melanoma, Headache CONTRAST: Performed utilizing 9 mL intravenous Gadavist gadolinium contrast. TECHNIQUE: Multiplanar, multiecho imaging on a 3.0 [place] magnet is performed through the brain. Stud y is performed within 24 hours of arrival to the hospital. The craniovertebral junction is normal. The pituitary is normal. Diffusion-weighted imaging is performed. No abnormal hyperintensity is present to suggest an acute i ntracranial infarct or acute ischemic change. There is some increased signal on T2 and inversion recovery weighted sequences within the brainstem p resent previously. Periventricular white matter hyperintensity is present, stable from comparison. Th ere are scattered subcortical white matter changes in the centrum semiovale bilaterally. Findings are nonspecific but likely related to chronic white matter ischemic changes. No suspicious enhancing les ions to suggest metastatic disease. Ventricles and sulci are slightly prominent for the patient age. IMPRESSIONS: 1. Atrophy with chronic appearing periventricular white matter ischemic type changes. 2. No suspicious changes or enhancement to suggest metastatic disease.
== END | disposition home or self-care (01) ==
LOC: RADMRIMAIN 07:37
PROVIDERS: ATTEND Internal Medicine Hematology & Oncology
DX: G31.9 Degenerative disease of nervous system, unspecified (principal); I67.82 Cerebral ischemia; C43.61 Malignant melanoma of right upper limb, including shoulder
CPT/HCPCS: 70553; A9585

== ENCOUNTER → 2020-01-15 | Outpatient (CLI) | payer MEDICARE | END | disposition home or self-care (01) | CPT/HCPCS: 82565; 84520; 71260; 36415; Q9967 ==

== ENCOUNTER → 2020-02-13 | Outpatient (CLI) | payer MEDICARE ==
--- NOTE | 2020-02-13 11:04 | XR ---
EXAMINATION TYPE: XR chest 2V DATE OF EXAM: 02/13/2020 COMPARISON: June 28, 2019 HISTORY: Shortness of breath TECHNIQUE: Frontal and lateral views of the chest are obtained. FINDINGS: Scattered senescent parenchymal changes noted. Hyperinflation compatible with COPD. Stable left upper lobe pleural thickening or loculated effusion. Increased patchy density left medial lung base and mild increased interstitial markings right upper lobe may reflect developing infiltrat e. Correlate clinically. Heart size is stable. Mediastinal structures are stable and grossly unremarkable. No evidence for hilar prominence. Degenerative changes dorsal spine. IMPRESSION: 1. . Increased patchy density left medial lung base and mild increased interstitial markings right up per lobe may reflect developing infiltrate. Correlate clinically.
== END | disposition home or self-care (01) ==
LOC: RADXRMAIN 10:31
PROVIDERS: ATTEND Internal Medicine Hematology & Oncology
DX: J98.4 Other disorders of lung (principal); C43.61 Malignant melanoma of right upper limb, including shoulder; L44.8 Other specified papulosquamous disorders; Z85.46 Personal history of malignant neoplasm of prostate
CPT/HCPCS: 71046